=== PATIENT | female | born 1955 | race Caucasian/White ===

== ENCOUNTER → 2018-10-08 11:01 | Outpatient (CLI) | payer OTHER, SELFPAY ==
--- NOTE | 2018-10-08 11:11 | XR_ITS ---
EXAM: XR lumbar spine min 4V HISTORY: ITS.REASON: Low back pain ORDERING PHYSICIAN: ERIC Wise PATIENT AGE: 62 years COMPARISON: 06/27/2016 FINDINGS: Normal alignment. No fracture or dislocation. No lytic or blastic change. There is degenerative disc disease at L5-S1. Facet arthritic changes are also noted at L4-5 and L5-S1. Incidental vascular calcifications. SI joints are unremarkable. IMPRESSION: No significant change degenerative disc disease L5-S1 with facet arthritic change L4-L5 and L5-S1
== END ==
PROVIDERS: PCP Emergency Medicine; Visit Provider Physician Assistant
DX: M54.5 Low back pain (principal)
CPT/HCPCS: 72110

== ENCOUNTER 2020-01-20 09:08 | Inpatient (IN) | payer MEDICARE, MEDICAID, SELFPAY ==
[2020-01-20] VITALS (24 sets, daily range): BP systolic 129–187; BP diastolic 71–110; PULSE 60–88; RESP 13–18; TEMP 36.7–37.1; O2SAT 94–100; BMI 26.6; BMI 23.3
--- NOTE | 2020-01-20 | IR_ITS ---
APPROVED REPORT Patient Location: Inpatient Contact Center Rep: JUANA Mckinley RT (R) PROCEDURES Left heart catheterization Left ventriculogram Selective coronary angiogram Drug-eluting stent deployment to the mid circumflex artery INDICATION Acute non-ST elevation myocardial infarction, Coronary disease Informed consent was obtained prior to the procedure. COMPLICATIONS NONE Estimated Blood Loss: LESS THAN 10 ML TECHNIQUE One percent lidocaine used to anesthetize the right anterior aspect of the wrist. The right radial artery was accessed via the Seldinger technique. A 6 Vietnamese sheath was placed in the right radial artery. 2.5 mg of verapamil, 800 mcg of nitroglycerin, 1mg Lidocaine and 5000 U Heparin were given through the arterial sheath. The trap catheter was also used to perform left heart catheterization, left ventriculogram and selective coronary angiogram. At the end of the diagnostic procedure therapeutic heparin was administered and and I Leora left guide catheter was placed in the left main artery. A Choice PT extra-support wire was used to traverse the critical stenosis in the circumflex artery. A 2.75 x 18 mm resolute love stent was deployed at 15 eitan reducing the critical stenosis to 0%. JUAN DIEGO-3 flow was present before and after the procedure. At the end of the procedure the apparatus was removed the sheath was removed good hemostasis was achieved using TR banding patient was transferred to the postop holding area stable condition ANGIOGRAPHIC RESULTS The left main artery Normal The left anterior descending artery Has proximal and mid vessel 30% stenoses. A large first diagonal artery has an ostial proximal 80 to 90% stenosis The circumflex artery Is a nondominant yet still large vessel which has ostial and proximal 10% stenoses with a 50% and focal greater than 90% stenosis in a large second obtuse marginal artery The right coronary artery Dominant with mild luminal irregularities The BOWMAN ventriculogram reveals Normal 65% The left ventricular end-diastolic pressure 10 mmHg IMPRESSION Critical disease in a large second obtuse marginal artery Successful stenting of a critically diseased large second obtuse marginal artery reducing the stenosis to 0% with one drug-eluting stent Persistent severe stenosis in a large first diagonal artery Normal ejection fraction Normal left ventricular end-diastolic pressure PLAN 1. Brilinta 90 twice daily plus aspirin 81 mg daily for 1 year 2. LDL less than 55 3. Avoidance of tobacco products 4. Cardiac rehabilitation 5. Risk factor modification Electronically signed by : Nirav May, 01/20/2020 13:49:24
--- NOTE | 2020-01-20 09:10 | HMH.EDGENADL ---
ED Disposition Clinical Impression: Chest pain Qualifiers: Chest pain type: unspecified Qualified Code(s): R07.9 - Chest pain, unspecified Disposition: Admitted As Inpatient Condition on Discharge: Good Prescriptions: predniSONE [Prednisone 5mg Tab Dose-Pack] 5 mg PO UD DOSE PK 5 Days #1 pack Transmission Status: Received by [facility] Referrals: PCP,No [Non-Staff] - Time of Disposition: 10:24 - Critical Care Critical Care Time: No Attestation: On , the high probability of a clinically significant, sudden or life threatening deterioration of the following system(s) required my full and direct attention, intervention and personal management. The time I documented below is in addition to time spent performing reported procedures but includes the following listed in this critical care notation. Medical Decision Making - Medical Records Medical records reviewed: Yes: I reviewed the patient's medical records. MR Comment: 64-year-old female presents the emergency department with chest tightness over the last 5 days as well as an increased productive cough during this time. She denies any shortness of breath or pain in her back or chest. ACS is considered, COPD exacerbation also considered as well as COVID, or other viral etiology. PE not clinically concerning at this time. Will get EKG, troponin, labs, chest x-ray and reassess. Her initial blood pressure elevated to systolic 180 and diastolic around 110, but this decreased, though hypertensive urgency also considered. Patient remained stable. On reassessment, she continues to do well. Is not having pain at this time. Troponin is elevated at 0.2, EKG does not show any ST segment changes or hyperacute T waves. She has normal rhythm and rate. Given her increased troponin and intermittent chest tightness, spoke with the admitting physician and she will be admitted for further cardiac work-up. - Braxton Inquiry Pt receiving controlled substance: No Vital Signs: 01/20/20 09:08 Temperature 98.6 F Temperature Source Oral Pulse Rate [Left Radial] 88 Respiratory Rate 14 Blood Pressure [Right Arm] 187/105 H Blood Pressure Mean [Right Arm] 132 Blood Pressure Source [Right Arm] Automatic Cuff Blood Pressure Position [Right Arm] Sitting 02 Sat by Pulse Oximetry 99 Oxygen Delivery Method Room Air - Lab Data Lab Results 01/20/20 09:13: WBC 7.6, RBC 4.02 L, Hgb 12.7, Hct 39.7, MCV 98.7, MCH 31.6 H, MCHC 32.0, RDW 14.1, Plt Count 416, MPV 8.1, Neut % (Auto) 49.5, Lymph % (Auto) 40.6, [place] % (Auto) 7.0, Eos % (Auto) 2.5, Baso % (Auto) 0.5, Neut # (Auto) 3.8, Lymph # (Auto) 3.1, [place] # (Auto) 0.5, Eos # (Auto) 0.2, Baso # (Auto) 0.0 01/20/20 09:13: Sodium 139, Potassium 3.8, Chloride 103, Carbon Dioxide 28, Anion Gap 11.8, BUN 7, Creatinine 0.70, Estimated Creat Clear 66, Estimated GFR 84, Est GFR ( Amer) 102, Glucose 157 H, Calcium 9.7, Troponin I 0.20 H Result diagrams: 01/20/20 09:13 01/20/20 09:13 Orders (Tests/Meds): ED MEDICATIONS Discontinued Medications Generic Name Dose Route Start Last Admin Trade Name Freq PRN Reason Stop Dose Admin Albuterol/Ipratropium 3 ml 01/20/20 09:18 Duoneb 3ml Neb IH 01/20/20 09:19 ONCE ONE Aspirin 325 mg 01/20/20 10:04 Aspirin 325mg Tablet PO 01/20/20 10:05 ONCE ONE ORDERS Category Date Time Status XR chest 2V Stat Exams 01/20/20 09:16 Ordered Troponin I Stat Lab 01/20/20 09:13 Ordered General Adult HPI - General Stated complaint: chest pain Time Seen by Provider: 01/20/20 09:10 - History of Present Illness HPI narrative: 64-year-old female with a history of COPD presents emergency department with productive cough and chest tightness. She states that she has been coughing up more green-yellow sputum over the last 5 to 7 days and during this time is also felt some tightness in her chest. She denies chest pain, states her cough is been worse recently.
--- NOTE | 2020-01-20 09:16 | XR_ITS ---
PROCEDURE: XR CHEST 2V CLINICAL HISTORY: chest pain Shortness of breath, smoker COMPARISON: CR CXR CHEST(2 VIEWS-NOT PORTABLE) from 05/13/2014 CR CXR CHEST(2 VIEWS-NOT PORTABLE) from 08/30/2014 FINDINGS: The cardiomediastinal silhouette and pulmonary vascularity are within normal limits. The lungs are clear without infiltrates, suspicious nodules, or pleural effusions. Mild mid to upper thoracic kyphosis IMPRESSION: No acute findings. Dictated by: Yves Pelaez MD 01/20/2020 11:22 Yves Pelaez MD in [place] 01/20/2020 11:22
--- NOTE | 2020-01-20 09:16 | ECG_ITS ---
APPROVED REPORT Exam: Resting ECG HR:90 bpm ECG Measurements Heart Rate 90 AXES DC 134 P 82 QRSd 78 QRS 28 QT 404 T 98 QTc 494 <Conclusion> Normal sinus rhythm Left atrial abnormality Late r wave progression Abnormal ECG Electronically signed by : Elmer Witt, 01/22/2020 07:31:04
[2020-01-20 09:25] LABS: Basophils % 0.5 % (0.1-2.0); Eosinophils # 0.2 K/mm3 (0.0-0.4); Eosinophils % 2.5 % (0.1-12.0); Hematocrit 39.7 % (37.0-47.0); Hemoglobin 12.7 g/dL (12.2-16.2); Lymphocytes # 3.1 K/mm3 (0.7-4.5); Lymphocytes % 40.6 % (10-50); Mean Corpuscular Hemoglobin 31.6 pg (27.0-31.2); Mean Corpuscular Volume 98.7 fl (81-99); Mean Platelet Volume 8.1 fl (7.4-10.4); Monocytes # 0.5 K/mm3 (0.1-1.0); Neutrophils # 3.8 K/mm3 (1.8-7.8); Neutrophils % 49.5 % (37.0-80.0); Platelet Count 416 K/mm3 (142-424); Red Blood Count 4.02 M/mm3 (4.20-5.40); Red Cell Distribution Width 14.1 % (11.5-17.5); White Blood Count 7.6 K/mm3 (4.8-10.8)
[2020-01-20 09:27] LABS: Chloride 103 mmol/L (98-107); Potassium 3.8 mmoL/L (3.5-5.1); Sodium 139 mmol/L (136-145)
[2020-01-20 09:30] LABS: Anion Gap 11.8 mEq/L (5-15); Blood Urea Nitrogen 7 mg/dl (7-17); Calcium 9.7 mg/dl (8.4-10.2); Carbon Dioxide 28 mmol/L (22.0-30.0); Creatinine Clearance Estimated 66 mL/min (50-200); Estimated Glomerular Filt Rate 84 ml/min (>60); GFR (African American) 102 ML/MIN (>60); Glucose 157 mg/dl (74-100)
--- NOTE | 2020-01-20 10:11 | PC.NURSE ---
talking to about admission for pt
--- NOTE | 2020-01-20 10:11 | PC.NURSE ---
Pt to rad
--- NOTE | 2020-01-20 10:20 | CA_ITS ---
APPROVED REPORT EXAM: Comprehensive 2D, Doppler, and color-flow Echocardiogram Machine Stapler: Griselda Cummings, RT(R) Ht: 5 ft 6 in Wt: 165lbs BSA: 1.84 BP: 187/105 mmHg Indications: CP, COPD, smoker, chest tightness, CAD stent today 2D Dimensions LVOT 1.93 cm (M/F) 1.5-2.5 M-Mode Dimensions RVDd 2.73 cm (0.9-2.6) LVDd 4.96 cm (3.5-5.7) LVDs 4.02 cm (3.5-5.7) IVSd 1.14 cm (0.6-1.1) PWd 0.87 cm (0.6-1.1) EF (Teich) 39.00% FS 19.00% EDV (Teich) 116.10 mL ESV (Teich) 70.80 mL LV Diastology E/A Ratio 0.42 Mitral Valve MV A Velocity 97.00 (40-130 cm/s) Left Ventricle Left atrium is mildly enlarged, left ventricle is normal size, mild concentric left ventricular hypertrophy, visually estimated ejection fraction 55% with no regional wall motion abnormality, endocardial surfaces are poorly visualized, grade 1 diastolic dysfunction seen without tissue Doppler evidence of raise left atrial pressure. Right Ventricle Right atrium is mildly enlarged, right ventricle is mildly dilated with normal contractility. Aortic Valve Aortic valve is thickened and calcified without aortic stenosis, there is mild aortic insufficiency. Mitral Valve Mitral valve leaflets are minimally thickened, there is no mitral stenosis, there is mild mitral regurgitation. Tricuspid Valve Tricuspid valve is grossly normal, there is mild tricuspid regurgitation, tricuspid regurgitation jet velocity is inadequate for calculation of the right ventricular systolic pressure. Pulmonic Valve Pulmonic valve is poorly visualized. Great Vessels Aortic root is normal size. Pericardium No significant pericardial effusion noted. Conclusion 1. Mild biatrial enlargement, normal left ventricular size, mild concentric left ventricular hypertrophy, visually estimated ejection fraction 55% with no regional wall motion abnormality, grade 1 diastolic dysfunction seen without tissue Doppler evidence of raise left atrial pressure, endocardial surfaces are poorly visualized. 2. Mildly enlarged right ventricle with normal contractility. 3. Mild aortic, mitral and tricuspid regurgitation. 4. No significant pericardial effusion noted. Electronically signed by : Fer Arnold, 01/21/2020 13:14:39
--- NOTE | 2020-01-20 10:33 | PC.NURSE ---
Blossom Smith in aware of admission. States she will contact HS for bed admission
--- NOTE | 2020-01-20 10:36 | PC.NURSE ---
Dr Silva speaking with Alice Caraballo APRN
--- NOTE | 2020-01-20 10:52 | PC.NURSE ---
Alice Caraballo APRN at bedside
--- NOTE | 2020-01-20 10:59 | HMH.CNCARD ---
History of Present Illness Consult date: 01/20/20 Requesting physician: Edwardo Silva Consult reason: chest pain Chief complaint: chest pain History of present illness: This is a 64-year-old white female who presented to the emergency department with chest tightness over the last 4 to 5 days. The patient states that the chest tightness has progressively worsened and because it got worse this morning than it had been on any other previous days she decided to come into the emergency department. It radiates to the right arm and causes heaviness. It is associated with nausea and diaphoresis as well as feeling clammy. She denies any shortness of breath or radiation to her back. The patient states that she has a history of COPD and thought that she was just having an exacerbation of her COPD and bronchitis. The patient denies any history of TN or coronary artery disease. She denies hypertension, hyperlipidemia or diabetes. She states that she does have a sister who has multiple cardiac stents in place. She does smoke at least 1 pack/day. Her initial troponin is positive at 0.2 with an abnormal EKG but it does not show any acute ST changes. She denies any fever, chills, vomiting, diarrhea, PND or orthopnea. As mentioned above the patient does deny hypertension but her blood pressure is significantly elevated on admission. [facility] History I have reviewed the patient's past medical history: Yes Medical History: Reports:: Anxiety, Depression Denies:: Diabetes Mellitus Type 1, Diabetes Mellitus Type 2, Hyperlipidemia, Hypertension *Have you ever received a pneumonia vaccine?: No *Have you received a flu vaccine this season?: No Other Medical History: Reports: Arthritis Other Surgeries: Yes: Cholecystectomy, Colonoscopy Amputation: No Fractures: No - *Social History Smoking Status: Current every day smoker Tobacco Type: cigarettes # Packs/Day (cigarettes): 1 Alcohol Intake: never Substance Use Type: denies use *Occupational Status:: retired *Travel in the last 8 weeks: None - Psychiatric History Pschychiatric History:: Reports:: Anxiety, Depression Family Hx:: Cancer Meds Home Medications Medication Instructions Recorded Confirmed Type albuterol sulfate 90 mcg/actuation 2 puff INHALATION Q6H #6.7 g 11/17/19 11/17/19 Rx aerosol inhaler gabapentin 800 mg tablet 800 mg PO QID #120 tab 11/17/19 Rx nabumetone 1,000 mg tablet 1,000 mg PO DAILY #30 tab 11/17/19 11/17/19 Rx omeprazole 40 mg capsule,delayed See Rx Instructions .ROUTE 12/14/19 Rx release .COMPLEX #90 cap prednisone 20 mg tablet 20 mg PO BID #10 tab 12/23/19 Rx predniSONE [Prednisone 5mg Tab 5 mg PO UD DOSE PK 5 Days #1 pack 01/20/20 Rx Dose-Pack] Allergies Allergy/AdvReac Type Severity Reaction Status Date / Time cephalexin [From KEFLEX] Allergy Intermediate Verified 11/17/19 11:01 Penicillins Allergy Intermediate I-HIVES Verified 11/17/19 11:01 Exam Vital signs and Labs for Last 24 Hours: Temp Pulse Resp BP Pulse Ox 98.6 F 82 14 185/110 H 98 01/20/20 09:08 01/20/20 10:34 01/20/20 09:08 01/20/20 10:34 01/20/20 10:34 Laboratory Results - last 24 hr 01/20/20 09:13: WBC 7.6, RBC 4.02 L, Hgb 12.7, Hct 39.7, MCV 98.7, MCH 31.6 H, MCHC 32.0, RDW 14.1, Plt Count 416, MPV 8.1, Neut % (Auto) 49.5, Lymph % (Auto) 40.6, [place] % (Auto) 7.0, Eos % (Auto) 2.5, Baso % (Auto) 0.5, Neut # (Auto) 3.8, Lymph # (Auto) 3.1, [place] # (Auto) 0.5, Eos # (Auto) 0.2, Baso # (Auto) 0.0 01/20/20 09:13: Sodium 139, Potassium 3.8, Chloride 103, Carbon Dioxide 28, Anion Gap 11.8, BUN 7, Creatinine 0.70, Estimated Creat Clear 66, Estimated GFR 84, Est GFR ( Amer) 102, Glucose 157 H, Calcium 9.7, Troponin I 0.20 H I & O for Last 24 hours: Intake & Output 01/17/20 01/18/20 01/19/20 01/20/20 23:59 23:59 23:59 23:59 Weight 165 lb Narrative: EKG is sinus rhythm with an old septal TN pattern and a rate of 90. - Constitutional no acute distress, av
--- NOTE | 2020-01-20 11:14 | PC.NURSE ---
Report called to Shilpi
--- NOTE | 2020-01-20 11:39 | PC.NURSE ---
Order for IgG/IgM was ordered in ER, although when the orders got transferred to the floor it cancelled out the current order for the lab test. After clarifying with lab that the order was cancelled on their end, new order was ordered, pt already taken to the floor at this time. Will notify accepting nurse of this information as well.
[2020-01-20 12:12] LABS: Coronavirus 19 IgG Antibody Negative (Negative); Coronavirus 19 IgM Antibody Negative (Negative)
[2020-01-20 13:31] LABS: Troponin I 0.19 ng/ml (0.00-0.034)
[2020-01-20 14:59] LABS: CATHL Activated Clotting Time 220 SEC (74-125)
--- NOTE | 2020-01-20 15:22 | PC.NURSE ---
password for pt is 1955
--- NOTE | 2020-01-20 18:26 | PC.NURSE ---
pt has done well since heart cath. bp has remained the same for the most part, is decreasing though. when RN took tracelet off a hematoma was noted at site, manual pressure held by myself and Beth Brito RN for approx. 20 minutes. currently no hematoma noted, education given to patient. vss. will cont. to monitor.
--- NOTE | 2020-01-20 19:13 | PC.NURSE ---
report given to earl
[2020-01-21] VITALS: BP 160/86; PULSE 78; PULSE 80; RESP 18; TEMP 36.5; O2SAT 95
[2020-01-21 02:00] VITALS: BP 150/85; PULSE 74; RESP 16; O2SAT 95
[2020-01-21 04:00] VITALS: BP 152/85; PULSE 62; PULSE 70; RESP 16; TEMP 36.4; O2SAT 94
--- NOTE | 2020-01-21 04:26 | PC.NURSE ---
Pt is A&Ox4 and has ambulated OOB 3x this shift with staff SBA and tolerated well. Pt has remained in NSR t/o shift. Pt denies any chest pain, SOB, or N/V/D. R wrist is very tender to touch, [employer] is WNL, peripheral pulses 2+, and pt denies any numbness or tingling to hand/fingers. No further reoccurrence of hematoma present thus far. Lungs CTA, SaO2 94-97% on room air. ABD is soft, non-tender, with active BS. Last BM was 01/19/20. Pt has refused TEDS. VSS, call light within reach, and will continue to monitor.
[2020-01-21 05:00] VITALS: BMI 23.3
[2020-01-21 06:00] LABS: Basophils % 0.4 % (0.1-2.0); Eosinophils # 0.1 K/mm3 (0.0-0.4); Eosinophils % 1.8 % (0.1-12.0); Hematocrit 38.2 % (37.0-47.0); Hemoglobin 13.2 g/dL (12.2-16.2); Lymphocytes # 2.2 K/mm3 (0.7-4.5); Lymphocytes % 27.5 % (10-50); Mean Corpuscular HGB Conc 34.6 g/dL (31.8-35.4); Mean Corpuscular Hemoglobin 32.9 pg (27.0-31.2); Mean Corpuscular Volume 95.1 fl (81-99); Mean Platelet Volume 8.2 fl (7.4-10.4); Monocytes # 0.6 K/mm3 (0.1-1.0); Neutrophils % 63.4 % (37.0-80.0); Platelet Count 430 K/mm3 (142-424); Red Blood Count 4.02 M/mm3 (4.20-5.40); White Blood Count 7.9 K/mm3 (4.8-10.8)
[2020-01-21 06:18] LABS: Alanine Aminotransferase 13 U/L (12-78); Albumin Level 3.9 g/dl (3.5-5.0); Alkaline Phosphatase 114 U/L (38-126); Anion Gap 13.8 mEq/L (5-15); Aspartate Amino Transferase 34 U/L (14-36); Bilirubin,Direct 0.1 mg/dl (0.0-0.4); Bilirubin,Indirect 0.5 mg/dL (0.0-0.9); Bilirubin,Total 0.6 mg/dl (0.2-1.3); Bilirubin,Unconjugated 0.5 mg/dL (0.0-1.1); Blood Urea Nitrogen 7 mg/dl (7-17); Calcium 9.6 mg/dl (8.4-10.2); Carbon Dioxide 28 mmol/L (22.0-30.0); Chloride 104 mmol/L (98-107); Cholesterol 295 mg/dl (140-200); Creatinine Clearance Estimated 58 mL/min (50-200); Estimated Glomerular Filt Rate 84 ml/min (>60); GFR (African American) 102 ML/MIN (>60); Glucose 130 mg/dl (74-100); HDL Cholesterol 42 mg/dl (40-60); Potassium 3.8 mmoL/L (3.5-5.1); Sodium 142 mmol/L (136-145); Total Protein,Serum 6.9 g/dl (6.3-8.2); Triglycerides 186 mg/dl (30-150); VLDL Cholesterol 37 mg/dL (0-40)
[2020-01-21 06:28] LABS: Direct LDL Cholesterol 217.91 mg/dL (100-129)
--- NOTE | 2020-01-21 07:25 | HMH.PHAVTE ---
[facility] [place] Pharmacy VTE Monitoring - Patient Demographics Admission date: 01/20/20 Report Date: 01/21/20 Allergies/Adverse Reactions: Patient Allergies cephalexin [From KEFLEX] Allergy (Intermediate, Verified 11/17/19 11:01) Penicillins Allergy (Intermediate, Verified 11/17/19 11:01) I-HIVES Height: 1.68 m Weight: 65.828 kg Patient Problems: Current Active Problems Chest pain (Acute) Non-ST elevation myocardial infarction (NSTEMI) (Acute) Angina pectoris (Acute) Elevated blood pressure reading (Acute) Tobacco user (Chronic) Family history of ischemic heart disease (Chronic) - VTE Risk Labs: VTE Related Lab Results Hgb 13.2 g/dL (12.2-16.2) 01/21/20 05:30 Hct 38.2 % (37.0-47.0) 01/21/20 05:30 Plt Count 430 K/mm3 (142-424) H 01/21/20 05:30 BUN 7 mg/dl (7-17) 01/21/20 05:30 Creatinine 0.70 mg/dl (0.52-1.04) 01/21/20 05:30 Estimated Creat Clear 58 mL/min (50-200) 01/21/20 05:30 Was VTE Risk Assessment Performed: No VTE Score: 4 VTE Risk Level: Low Risk Clinical Trial Participant: No - Prophylaxis VTE Prophylaxis Ordered?: Yes Types of VTE Prophylaxis: TEDS Knee High
[2020-01-21 07:37] VITALS: TEMP 37.1
--- NOTE | 2020-01-21 07:54 | HMH.PHAINT ---
HOME MEDICATION RECONCILIATION COMPLETED USING LIST FROM DR [facility].
[2020-01-21 08:00] VITALS: BP 171/91; PULSE 70; RESP 16; O2SAT 97
--- NOTE | 2020-01-21 08:11 | HMH.HP ---
*Admission Date: 01/20/20 *Chief complaint: chest pain *History of present illness: 64-year-old female presents the emergency department with chest tightness over the last 5 days as well as an increased productive cough during this time. She denies any shortness of breath or pain in her back or chest. ACS is considered, COPD exacerbation also considered as well as COVID, or other viral etiology. PE not clinically concerning at this time. Will get EKG, troponin, labs, chest x-ray and reassess. Her initial blood pressure elevated to systolic 180 and diastolic around 110, but this decreased, though hypertensive urgency also considered. Patient remained stable. On reassessment, she continues to do well. Is not having pain at this time. Troponin is elevated at 0.2, EKG does not show any ST segment changes or hyperacute T waves. She has normal rhythm and rate. Given her increased troponin and intermittent chest tightness, spoke with the admitting physician and she will be admitted for further cardiac work-up. [facility] History Medical History: Reports:: Anxiety, Depression, Hyperlipidemia Denies:: Cancer, Diabetes Mellitus Type 1, Diabetes Mellitus Type 2, Hypertension, MRSA *Have you ever received a pneumonia vaccine?: No *Have you received a flu vaccine this season?: No Other Medical History: Reports: Arthritis Other Surgeries: Yes: Cholecystectomy, Colonoscopy Amputation: No Fractures: No - *Social History Smoking Status: Current every day smoker Tobacco Type: cigarettes # Packs/Day (cigarettes): 1 Alcohol Intake: never Substance Use Type: denies use *Occupational Status:: retired Household Members: family *Travel in the last 8 weeks: None - Psychiatric History Pschychiatric History:: Reports:: Anxiety, Depression Family Hx:: Cancer, Diabetes, Stroke Meds Home Medications Medication Instructions Recorded Confirmed Type Albuterol Sulfate [Proventil Hfa] 2 puff INHALATION Q6H 01/20/20 01/20/20 History Gabapentin 800 mg PO QID 01/20/20 01/20/20 History predniSONE [Prednisone 5mg Tab 5 mg PO UD DOSE PK 5 Days #1 pack 01/20/20 Rx Dose-Pack] Aspirin [Aspirin 81mg EC Tab] 81 mg PO DAILY 30 Days #30 01/21/20 Rx tablet. Atorvastatin Calcium [Lipitor 40mg 40 mg PO HS 30 Days #30 tab 01/21/20 Rx Tablet] Metoprolol Succinate [Toprol XL 25 mg PO DAILY 30 Days #30 01/21/20 Rx 25mg tablet] tab.er.24h Pantoprazole Sodium [Protonix 40mg 40 mg PO HS 30 Days #30 tablet.dr 01/21/20 Rx tablet] Ticagrelor [Brilinta 90mg 90 mg PO BID tab 01/21/20 Rx Tablet] lisinopriL [Zestril 10mg Tab] 10 mg PO DAILY 30 Days #30 tab 01/21/20 Rx Allergies Allergy/AdvReac Type Severity Reaction Status Date / Time cephalexin [From KEFLEX] Allergy Intermediate Verified 11/17/19 11:01 Penicillins Allergy Intermediate I-HIVES Verified 11/17/19 11:01 Exam Vital signs and Labs for Last 24 Hours: Temp Pulse Resp BP Pulse Ox 98.7 F 62 16 152/85 H 94 L 01/21/20 07:37 01/21/20 04:00 01/21/20 04:00 01/21/20 04:00 01/21/20 04:00 Laboratory Results - last 24 hr 01/20/20 09:13: WBC 7.6, RBC 4.02 L, Hgb 12.7, Hct 39.7, MCV 98.7, MCH 31.6 H, MCHC 32.0, RDW 14.1, Plt Count 416, MPV 8.1, Neut % (Auto) 49.5, Lymph % (Auto) 40.6, [place] % (Auto) 7.0, Eos % (Auto) 2.5, Baso % (Auto) 0.5, Neut # (Auto) 3.8, Lymph # (Auto) 3.1, [place] # (Auto) 0.5, Eos # (Auto) 0.2, Baso # (Auto) 0.0 01/20/20 09:13: Sodium 139, Potassium 3.8, Chloride 103, Carbon Dioxide 28, Anion Gap 11.8, BUN 7, Creatinine 0.70, Estimated Creat Clear 66, Estimated GFR 84, Est GFR ( Amer) 102, Glucose 157 H, Calcium 9.7, Troponin I 0.20 H 01/20/20 09:13: SARS-CoV-2 IgG Ab (Rapid) Negative, SARS-CoV-2 IgM Ab (Rapid) Negative 01/20/20 12:00: Troponin I 0.19 H 01/20/20 13:39: Activated Clotting Time 220 H* 01/21/20 05:30: WBC 7.9, RBC 4.02 L, Hgb 13.2, Hct 38.2, MCV 95.1, MCH 32.9 H, MCHC 34.6, RDW 14.0, Plt Count 430 H, MPV 8.2, Neut % (Auto
--- NOTE | 2020-01-21 08:15 | HMH.PNCARD ---
Subjective Date: 01/21/20 Time: 08:15 Principal diagnosis: NSTEMI Interval history: 64-year-old white female in bed in no acute distress. Some discomfort at the right wrist cath site but she is able to move her fingers without difficulty and denies any numbness or tingling into the fingers. Patient is anxious to go home. She denies any of her angina or NJ symptoms since stenting yesterday. We did discuss tobacco cessation and she states she is not wanting any cigarettes. Exam Vital signs and Labs for Last 24 Hours: Temp Pulse Resp BP Pulse Ox 98.7 F 62 16 152/85 H 94 L 01/21/20 07:37 01/21/20 04:00 01/21/20 04:00 01/21/20 04:00 01/21/20 04:00 Laboratory Results - last 24 hr 01/20/20 09:13: WBC 7.6, RBC 4.02 L, Hgb 12.7, Hct 39.7, MCV 98.7, MCH 31.6 H, MCHC 32.0, RDW 14.1, Plt Count 416, MPV 8.1, Neut % (Auto) 49.5, Lymph % (Auto) 40.6, Gray % (Auto) 7.0, Eos % (Auto) 2.5, Baso % (Auto) 0.5, Neut # (Auto) 3.8, Lymph # (Auto) 3.1, Gray # (Auto) 0.5, Eos # (Auto) 0.2, Baso # (Auto) 0.0 01/20/20 09:13: Sodium 139, Potassium 3.8, Chloride 103, Carbon Dioxide 28, Anion Gap 11.8, BUN 7, Creatinine 0.70, Estimated Creat Clear 66, Estimated GFR 84, Est GFR ( Amer) 102, Glucose 157 H, Calcium 9.7, Troponin I 0.20 H 01/20/20 09:13: SARS-CoV-2 IgG Ab (Rapid) Negative, SARS-CoV-2 IgM Ab (Rapid) Negative 01/20/20 12:00: Troponin I 0.19 H 01/20/20 13:39: Activated Clotting Time 220 H* 01/21/20 05:30: WBC 7.9, RBC 4.02 L, Hgb 13.2, Hct 38.2, MCV 95.1, MCH 32.9 H, MCHC 34.6, RDW 14.0, Plt Count 430 H, MPV 8.2, Neut % (Auto) 63.4, Lymph % (Auto) 27.5, Gray % (Auto) 7.0, Eos % (Auto) 1.8, Baso % (Auto) 0.4, Neut # (Auto) 5.0, Lymph # (Auto) 2.2, Gray # (Auto) 0.6, Eos # (Auto) 0.1, Baso # (Auto) 0.0 01/21/20 05:30: Sodium 142, Potassium 3.8, Chloride 104, Carbon Dioxide 28, Anion Gap 13.8, BUN 7, Creatinine 0.70, Estimated Creat Clear 58, Estimated GFR 84, Est GFR ( Amer) 102, Glucose 130 H, Calcium 9.6, Total Bilirubin 0.6, Direct Bilirubin 0.1, Conjugated Bilirubin 0.0, Indirect Bilirubin 0.5, Unconjugated Bilirubin 0.5, AST 34, ALT 13, Alkaline Phosphatase 114, Total Protein 6.9, Albumin 3.9, Triglycerides 186 H, Cholesterol 295 H, LDL Cholesterol Direct 217.91 H, VLDL Cholesterol 37, HDL Cholesterol 42, Cholesterol/HDL Ratio 7.0 H I & O for Last 24 hours: Intake & Output 01/18/20 01/19/20 01/20/20 01/21/20 11:59 11:59 11:59 11:59 Intake Total 1850 / 1850 Output Total 450 / 450 Balance 1400 / 1400 Weight 144 lb 9 oz 145 lb 2 oz - *Routine HEENT Exam Head: Present: normocephalic Eye: Present: EOMI, PERRL ENT: Present: mucous membranes moist - *Routine Respiratory Exam Present: CTA bilaterally - *Routine Cardiovascular Exam Present: RRR - *Routine Abdominal Exam Present: soft, normoactive bowel sounds. Absent: tenderness - *Routine Extremities Exam Absent: cyanosis, clubbing, edema - *Routine Neurological Exam Present: alert, oriented X3 Progress Note: A&P (1) Non-ST elevation myocardial infarction (NSTEMI) Status: Acute Current Visit: Yes (2) Angina pectoris Status: Acute Current Visit: Yes (3) Elevated blood pressure reading Status: Acute Current Visit: Yes (4) Tobacco user Status: Chronic Current Visit: Yes (5) Family history of ischemic heart disease Status: Chronic Current Visit: Yes (6) COPD (chronic obstructive pulmonary disease) Status: Chronic Current Visit: No Assessment and Plan for All Diagnoses:: 1. Non-ST elevation [place], status post drug-eluting stent placement to a large second obtuse marginal. Patient is on aspirin and Brilinta. There is persistent disease in a first diagonal artery that will be addressed in the near future. 2. Hypertension, patient is tolerating lisinopril and metoprolol. 3. Hyperlipidemia, statin therapy has been started 4. Chronic discomfort, on gabapentin therapy 5. History of GERD, patient is on pantopraz
--- NOTE | 2020-01-21 09:32 | HMH.DCSUM ---
General - General Admission date:: 01/20/20 Discharge date: 01/21/20 HPI HPI: 64-year-old female who presented to the emergency department with chest tightness over the last 4 to 5 days. The patient states that the chest tightness has progressively worsened and because it got worse this morning than it had been on any other previous days she decided to come into the emergency department. It radiates to the right arm and causes heaviness. It is associated with nausea and diaphoresis as well as feeling clammy. She denies any shortness of breath or radiation to her back. The patient states that she has a history of COPD and thought that she was just having an exacerbation of her COPD and bronchitis. The patient denies any history of RI or coronary artery disease. She denies hypertension, hyperlipidemia or diabetes. She states that she does have a sister who has multiple cardiac stents in place. She does smoke at least 1 pack/day. Her initial troponin is positive at 0.2 with an abnormal EKG but it does not show any acute ST changes. She denies any fever, chills, vomiting, diarrhea, PND or orthopnea. As mentioned above the patient does deny hypertension but her blood pressure is significantly elevated on admission. per cardiology Hospital Course Hospital Course: Laboratory Tests 01/20/20 01/20/20 01/20/20 09:13 09:13 09:13 WBC 7.6 RBC 4.02 L Hgb 12.7 Hct 39.7 MCV 98.7 MCH 31.6 H MCHC 32.0 RDW 14.1 Plt Count 416 MPV 8.1 Neut % (Auto) 49.5 Lymph % (Auto) 40.6 [facility] % (Auto) 7.0 Eos % (Auto) 2.5 Baso % (Auto) 0.5 Neut # (Auto) 3.8 Lymph # (Auto) 3.1 [facility] # (Auto) 0.5 Eos # (Auto) 0.2 Baso # (Auto) 0.0 Activated Clotting Time Sodium 139 Potassium 3.8 Chloride 103 Carbon Dioxide 28 Anion Gap 11.8 BUN 7 Creatinine 0.70 Estimated Creat Clear 66 Estimated GFR 84 Est GFR ( Amer) 102 Glucose 157 H Calcium 9.7 Total Bilirubin Direct Bilirubin Conjugated Bilirubin Indirect Bilirubin Unconjugated Bilirubin AST ALT Alkaline Phosphatase Troponin I 0.20 H Total Protein Albumin Triglycerides Cholesterol LDL Cholesterol Direct VLDL Cholesterol HDL Cholesterol Cholesterol/HDL Ratio SARS-CoV-2 IgG Ab (Rapid) Negative SARS-CoV-2 IgM Ab (Rapid) Negative 01/20/20 01/20/20 01/21/20 12:00 13:39 05:30 WBC 7.9 RBC 4.02 L Hgb 13.2 Hct 38.2 MCV 95.1 MCH 32.9 H MCHC 34.6 RDW 14.0 Plt Count 430 H MPV 8.2 Neut % (Auto) 63.4 Lymph % (Auto) 27.5 [facility] % (Auto) 7.0 Eos % (Auto) 1.8 Baso % (Auto) 0.4 Neut # (Auto) 5.0 Lymph # (Auto) 2.2 [facility] # (Auto) 0.6 Eos # (Auto) 0.1 Baso # (Auto) 0.0 Activated Clotting Time 220 H* Sodium Potassium Chloride Carbon Dioxide Anion Gap BUN Creatinine Estimated Creat Clear Estimated GFR Est GFR ( Amer) Glucose Calcium Total Bilirubin Direct Bilirubin Conjugated Bilirubin Indirect Bilirubin Unconjugated Bilirubin AST ALT Alkaline Phosphatase Troponin I 0.19 H Total Protein Albumin Triglycerides Cholesterol LDL Cholesterol Direct VLDL Cholesterol HDL Cholesterol Cholesterol/HDL Ratio SARS-CoV-2 IgG Ab (Rapid) SARS-CoV-2 IgM Ab (Rapid) 01/21/20 05:30 WBC RBC Hgb Hct MCV MCH MCHC RDW Plt Count MPV Neut % (Auto) Lymph % (Auto) [facility] % (Auto) Eos % (Auto) Baso % (Auto) Neut # (Auto) Lymph # (Auto) [facility] # (Auto) Eos # (Auto) Baso # (Auto) Activated Clotting Time Sodium 142 Potassium 3.8 Chloride 104 Carbon Dioxide 28 Anion Gap 13.8 BUN 7 Creatinine 0.70 Estimated Creat Clear 58 Estimated GFR 84 Est GFR ( Amer) 102 Glucose 130 H Calcium 9.6 Total Bilirubin 0.6 Direct Bilirub
--- NOTE | 2020-01-21 10:32 | HMH.PHACLD ---
Sushma Anna Marie Zehradanae has received discharge medication counseling on the following medications: ASPIRIN 81MG LIPITOR 40MG METOPROLOL 25MG LISINOPRIL 10MG BRILINTA 90MG PROTONIX 40MG PREDNISONE DOSE PACK ALL NEW PRESCRIPTIONS WERE SENT TO [facility] WITH THE EXCEPTION OF BRILINTA WHICH WAS ALREADY FILLED BY [facility]. PATIENT IS TO STOP NABUMETONE AND OMEPRAZOLE. PATIENT VERBALIZED UNDERSTANDING AND HAD NO QUESTIONS AT THIS TIME. -BHARTI WAGNER, NEELD
== END 2020-01-21 10:41 | disposition home or self-care (01) | DRG 247 ==
LOC: ER 10:24 → 2ND 10:41
PROVIDERS: Internal Medicine; Nurse Practitioner Family; Admitting Provider Emergency Medicine; Emergency Provider Emergency Medicine; PCP Physician Assistant; Visit Provider Emergency Medicine
PROC: 027034Z Dilation of Coronary Artery, One Artery with Drug-eluting Intraluminal Device, Percutaneous Approach (ICD-10-PCS; principal; 2020-01-20 12:00)
DX: I21.4 Non-ST elevation (NSTEMI) myocardial infarction (principal); J44.9 Chronic obstructive pulmonary disease, unspecified; Z72.0 Tobacco use; I20.8 Other forms of angina pectoris; Z82.49 Family history of ischemic heart disease and other diseases of the circulatory system; Z79.52 Long term (current) use of systemic steroids; Z88.1 Allergy status to other antibiotic agents; Z88.0 Allergy status to penicillin; Z79.899 Other long term (current) drug therapy
CPT/HCPCS: 71046; 80048; 80061; 80076; 84484; 85025; 85347; 86328; 92941; 93005; 93306; 93458; 94761; 99152; 99284; C1725; C1769; C1876; C9606; J1644; Q9967

== ENCOUNTER 2020-01-25 14:37 | Observation (INO) | payer MEDICARE, MEDICAID, SELFPAY ==
[2020-01-25] VITALS (10 sets, daily range): BP systolic 142–196; BP diastolic 82–106; PULSE 70–109; RESP 17–20; TEMP 36.8–37.1; O2SAT 94–98; BMI 21.4; BMI 25.7; BMI 22.5
--- NOTE | 2020-01-25 14:28 | ECG_ITS ---
APPROVED REPORT Exam: Resting ECG HR:64 bpm ECG Measurements Heart Rate 64 AXES WI 140 P 68 QRSd 86 QRS 16 QT 428 T -56 QTc 441 <Conclusion> Normal sinus rhythm ST & T wave abnormality, consider inferior ischemia Abnormal ECG Electronically signed by : Elmer Witt, 01/25/2020 20:51:39
--- NOTE | 2020-01-25 14:44 | XR_ITS ---
PROCEDURE: XR CHEST PORTABLE CLINICAL HISTORY: chest pain COMPARISON: CR CXR CHEST(2 VIEWS-NOT PORTABLE) from 05/13/2014 CR CXR CHEST(2 VIEWS-NOT PORTABLE) from 08/30/2014 CR XR CHEST 2V from 01/20/2020 FINDINGS: Mild cardiomegaly without failure. The lungs are clear without infiltrates, suspicious nodules, or pleural effusions. No acute bony abnormalities. IMPRESSION: Mild cardiomegaly otherwise negative Dictated by: Yves Pelaez MD 01/25/2020 17:01 Yves Pelaez MD in [place] 01/25/2020 17:01
--- NOTE | 2020-01-25 14:54 | HMH.EDCP ---
ED Disposition Clinical Impression: Chest pain Qualifiers: Chest pain type: unspecified Qualified Code(s): R07.9 - Chest pain, unspecified Disposition: Still a Patient Condition on Discharge: Fair - Critical Care Critical Care Time: No Attestation: On 01/25/20, the high probability of a clinically significant, sudden or life threatening deterioration of the following system(s) required my full and direct attention, intervention and personal management. The time I documented below is in addition to time spent performing reported procedures but includes the following listed in this critical care notation. Medical Decision Making - Medical Records Medical records reviewed: Yes: I reviewed the patient's medical records. - [place] Inquiry Pt receiving controlled substance: No Vital Signs: 01/25/20 14:37 01/25/20 15:35 01/25/20 16:04 Temperature 98.2 F Temperature Source Oral Pulse Rate Pulse Rate [Right Radial] 87 74 77 Respiratory Rate 18 20 20 Blood Pressure Blood Pressure [Right Arm] 196/106 H 171/99 H 168/89 H Blood Pressure Mean [Right Arm] 136 123 115 Blood Pressure Source [Right Arm] Automatic Cuff Automatic Cuff Blood Pressure Position [Right Arm] Sitting Sitting Sitting 02 Sat by Pulse Oximetry 98 97 98 Oxygen Delivery Method Room Air Room Air Room Air 01/25/20 16:41 01/25/20 16:48 01/25/20 17:06 Temperature 98.7 F 98.2 F Temperature Source Oral Pulse Rate 73 Pulse Rate [Right Radial] 73 109 H Respiratory Rate 18 19 18 Blood Pressure 177/94 H Blood Pressure [Right Arm] 177/94 H 142/89 H Blood Pressure Mean [Right Arm] 121 106 Blood Pressure Source [Right Arm] Automatic Cuff Automatic Cuff Blood Pressure Position [Right Arm] Sitting Supine 02 Sat by Pulse Oximetry 97 94 L Oxygen Delivery Method Room Air Room Air - Lab Data Lab Results 01/25/20 15:00: WBC 11.4 H, RBC 4.12 L, Hgb 13.5, Hct 39.1, MCV 95.1, MCH 32.8 H, MCHC 34.5, RDW 14.4, Plt Count 477 H, MPV 8.0, Neut % (Auto) 73.1, Lymph % (Auto) 19.8, [place] % (Auto) 5.3, Eos % (Auto) 1.4, Baso % (Auto) 0.3, Neut # (Auto) 8.3 H, Lymph # (Auto) 2.3, [place] # (Auto) 0.6, Eos # (Auto) 0.2, Baso # (Auto) 0.0 01/25/20 15:00: Sodium 139, Potassium 3.2 L, Chloride 103, Carbon Dioxide 25, Anion Gap 14.2, BUN 9, Creatinine 0.60, Estimated Creat Clear 58, Estimated GFR 100, Est GFR ( Amer) 121, Glucose 172 H, Calcium 9.7, Troponin I 0.03 01/25/20 15:00: NT-Pro-B Natriuret Pep 314 H 01/25/20 15:00: SARS-CoV-2 IgG Ab (Rapid) Negative, SARS-CoV-2 IgM Ab (Rapid) Negative Result diagrams: 01/25/20 15:00 01/25/20 15:00 Orders (Tests/Meds): ED MEDICATIONS Generic Name Dose Route Start Last Admin Trade Name Freq PRN Reason Stop Dose Admin Acetaminophen 650 mg 01/25/20 16:48 Acetaminophen 325mg Tab PO 02/24/20 16:47 Q4HP PRN As Needed for Fever or Pain Albuterol Sulfate 2 puffs 01/25/20 18:00 Proventil-Hfa 90mcg/Puff Inhaler IH 02/24/20 17:59 Q6RT [facility] Aspirin 81 mg 01/26/20 09:00 Aspirin 81mg Enteric Coated Tablet PO 02/25/20 08:59 DAILY [facility] Atorvastatin Calcium 40 mg 01/25/20 21:00 Lipitor 40mg Tablet PO 02/24/20 20:59 HS [facility] Gabapentin 800 mg 01/25/20 17:00 01/25/20 18:16 Neurontin 400mg Capsule PO 01/25/20 21:01 Not Given QID BAILEE Lisinopril 10 mg 01/26/20 09:00 Zestril 10mg Tablet PO 02/25/20 08:59 DAILY [facility] Metoprolol Succinate 25 mg 01/26/20 09:00 Toprol Xl 25mg Tablet PO 02/25/20 08:59 DAILY [facility] Miscellaneous 1 unit 01/25/20 16:48 01/25/20 17:56 Aerochamber/Optihaler MC 01/25/20 16:49 Not Given ONCE ONE Nitroglycerin 0.4 mg 01/25/20 16:48 Nitrostat 0.4mg Sl Tablet SL 02/24/20 14:43 Q5MINP PRN Chest Pain Non-Formulary Medication 800 mg 01/26/20 09:00 Gabapentin PO 02/25/20 08:59 QID BAILEE Pantoprazole Sodium 40 mg 01/25/20 21:00 Protonix 40mg Tablet PO 02/24/20 20:59 HS BAILEE
[2020-01-25 15:09] LABS: Basophils % 0.3 % (0.1-2.0); Eosinophils # 0.2 K/mm3 (0.0-0.4); Eosinophils % 1.4 % (0.1-12.0); Hematocrit 39.1 % (37.0-47.0); Hemoglobin 13.5 g/dL (12.2-16.2); Lymphocytes # 2.3 K/mm3 (0.7-4.5); Lymphocytes % 19.8 % (10-50); Mean Corpuscular HGB Conc 34.5 g/dL (31.8-35.4); Mean Corpuscular Hemoglobin 32.8 pg (27.0-31.2); Mean Corpuscular Volume 95.1 fl (81-99); Monocytes # 0.6 K/mm3 (0.1-1.0); Monocytes % 5.3 % (1.7-9.3); Neutrophils # 8.3 K/mm3 (1.8-7.8); Neutrophils % 73.1 % (37.0-80.0); Platelet Count 477 K/mm3 (142-424); Red Blood Count 4.12 M/mm3 (4.20-5.40); Red Cell Distribution Width 14.4 % (11.5-17.5); White Blood Count 11.4 K/mm3 (4.8-10.8)
[2020-01-25 15:14] LABS: Chloride 103 mmol/L (98-107); Potassium 3.2 mmoL/L (3.5-5.1); Sodium 139 mmol/L (136-145)
[2020-01-25 15:17] LABS: Anion Gap 14.2 mEq/L (5-15); Blood Urea Nitrogen 9 mg/dl (7-17); Calcium 9.7 mg/dl (8.4-10.2); Carbon Dioxide 25 mmol/L (22.0-30.0); Creatinine Clearance Estimated 58 mL/min (50-200); Estimated Glomerular Filt Rate 100 ml/min (>60); GFR (African American) 121 ML/MIN (>60); Glucose 172 mg/dl (74-100)
[2020-01-25 15:30] LABS: Troponin I 0.03 ng/ml (0.00-0.034)
[2020-01-25 15:42] LABS: NT Pro Brain Natriuretic Pep. 314 pg/mL (0-125)
--- NOTE | 2020-01-25 16:01 | PC.NURSE ---
paged dr barclay
--- NOTE | 2020-01-25 16:03 | PC.NURSE ---
Dr Hunter spoke with Dr May
--- NOTE | 2020-01-25 16:08 | CA_ITS ---
APPROVED REPORT EXAM: Comprehensive 2D, Doppler, and color-flow Echocardiogram Associate Product Integrity Engineer: Griselda Cummings RT(R) Ht: 5 ft 9 in Wt: 145lbs BSA: 1.80 BP: 168/89 mmHg Indications: CP, COPD, smoker, hyperlipidemia, cath 5 days Echo Enhancing Agent Indication: Endocardial border delineation Agent(s) / Amount(s) Used: Definity 2 cc M-Mode Dimensions RVDd 1.72 cm (0.9-2.6) LVDd 5.48 cm (3.5-5.7) LVDs 4.55 cm (3.5-5.7) IVSd 0.82 cm (0.6-1.1) PWd 1.00 cm (0.6-1.1) EF (Teich) 35.10% FS 17.00% EDV (Teich) 146.20 mL ESV (Teich) 94.90 mL Left Ventricle Limited study was performed with Definity contrast to assess left ventricular systolic function. Left atrium is mildly enlarged, left ventricle is normal size, mild concentric left ventricular hypertrophy, visually estimated ejection fraction 50% with mild posterolateral wall hypokinesis. There is no left ventricular thrombus seen. Right Ventricle Right atrium and right ventricular relatively normal size and function. Aortic Valve Aortic valve is thickened and calcified there is no aortic stenosis, there is mild aortic insufficiency. Mitral Valve Mitral valve is minimally thickened, there is mild mitral regurgitation. Tricuspid Valve Tricuspid valve is grossly normal. Pulmonic Valve Pulmonic valve is not well visualized. Great Vessels Aortic root is normal size. Pericardium No significant pericardial effusion noted. Conclusion 1. Limited study was performed with Definity contrast to assess left ventricular systolic function. Normal left ventricular size, mild concentric left ventricular hypertrophy, visually estimated ejection fraction 50% with mild posterolateral wall hypokinesis, there is no left ventricular thrombus seen. 2. Mild aortic insufficiency. 3. No significant pericardial effusion noted. Electronically signed by : Fer Arnold, 01/25/2020 18:09:55
--- NOTE | 2020-01-25 16:10 | PC.NURSE ---
Dr Casimiro salmon
--- NOTE | 2020-01-25 16:51 | PC.NURSE ---
report called to talon yang rn on second floor at this time, states she will send staff down to get pt.
[2020-01-25 17:43] LABS: Coronavirus 19 IgG Antibody Negative (Negative); Coronavirus 19 IgM Antibody Negative (Negative)
--- NOTE | 2020-01-25 19:10 | PC.NURSE ---
report given to earl
--- NOTE | 2020-01-25 19:22 | PC.NURSE ---
pt family called out requesting rn to come to room, upon entering pt family was concerned that pt chest was hurting again, pt stated it was heart burn and it happens every time she sits up, had in ED, or eats brussel sprouts. notified dr. wayne about situation, no new orders. went on and had RT obtain 1929 EKG, pt has a trop ordered for 1929 as well.
--- NOTE | 2020-01-25 19:30 | ECG_ITS ---
APPROVED REPORT Exam: Resting ECG HR:68 bpm ECG Measurements Heart Rate 68 AXES VA 142 P 67 QRSd 88 QRS 1 QT 406 T 0 QTc 431 <Conclusion> Normal sinus rhythm with sinus arrhythmia Normal ECG Electronically signed by : Elmer Witt, 01/30/2020 06:33:13
[2020-01-25 20:29] LABS: Troponin I 0.04 ng/ml (0.00-0.034)
[2020-01-25 22:56] LABS: Troponin I 0.04 ng/ml (0.00-0.034)
[2020-01-26] VITALS (14 sets, daily range): BP systolic 123–209; BP diastolic 70–111; PULSE 68–94; RESP 16–26; TEMP 36.4–36.9; O2SAT 96–100; BMI 20.9
--- NOTE | 2020-01-26 00:55 | PC.NURSE ---
0055- C/O SHARP, STABBING CP RATING 8/10 ON 0-10 PHONE CIRCUIT OPERATOR WITH C/O NAUSEA. ON ENTERING ROOM, PT IS RESTLESS AND MOANING IN BED. 0056- VS OBTAINED WITH HTN NOTED. BP-209/111 DATASCOPE, 190/110 MANUALLY. SL NITRO TAB ADMINISTERED. 0058- EKG OBTAINED WITH ARTIFACT. 0101- ADDITIONAL SL NITRO ADMINISTERED. RATING CP NOW 6/10, STILL REPORTS NAUSEA. BP REMAINS HYPERTENSIVE, BP- 190/100. 0109- PT RESTING IN BED CALMLY, EKG OBTAINED WITHOUT ARTIFACT ER PHYSICIAN ABLE TO SIGN OFF ON THIS EKG, NO ACUTE CHANGES NOTED. BP- 143/97. RATING CP 3/10 ON 0-10 PHONE CIRCUIT OPERATOR. 0123- MD COUNTER HELP NOTIFIED OF EVENT, NEW ORDERS GIVEN AT THIS TIME.
--- NOTE | 2020-01-26 02:41 | PC.NURSE ---
A&OX3. COLLET DRILLER EQUAL BILAT. LUNGS NOTED CLEAR T/O AUSCULTATION. TOLERATED RA WELL THIS SHIFT. DID APPLY 2LNC DURING EPISODE OF CP FOR COMFORT BUT O2SATS HAVE REMAINED >90% ON RA. PULSES +2. ON REASSESSMENT OF APPLICATION OF NITRO PATCH AND PHENERGAN ADMIN, PT REPORTED I FEEL BETTER BUT I AM STILL HAVING SOME SLIGHT CP. PT REPORTED THAT PAIN IS TOLERABLE. BP IS 168/78 ON REASSESSMENT. PT RESTING IN BED CALMLY WITH EYES CLOSED UPON ENTERING ROOM FOR REASSESSMENT OF NITRO AND PHENERGAN. ABDOMEN FLAT, ACTIVE BOWEL SOUNDS, SOFT AND NONTENDER PER PALPATION. PT REPORTED HAVING A SMALL, BROWN, SOFT BM AT BEGINNING OF SHIFT, THIS WAS UNWITNESSED PER STAFF. INDEPENDENT WITH ADLS. WILL CONTINUE TO MONITOR.
--- NOTE | 2020-01-26 02:45 | PC.NURSE ---
UNMEASURED AMOUNT OF EMESIS NOTED YELLOW IN COLOR.
[2020-01-26 03:33] LABS: Troponin I 0.04 ng/ml (0.00-0.034)
--- NOTE | 2020-01-26 05:30 | PC.NURSE ---
ON REASSESSMENT OF ADMINISTRATION OF TORADOL AND TYLENOL, PT NOTED RESTING WITH EYES CLOSED.
--- NOTE | 2020-01-26 07:17 | PC.NURSE ---
EFREM applied to pt at this time
--- NOTE | 2020-01-26 08:41 | HMH.CNCARD ---
History of Present Illness Consult date: 01/26/20 Requesting physician: Ryan Kirkpatrick Consult reason: chest pain Chief complaint: Chest pain Additional Medical History:: 1. CAD A. NSTEMI, 01/2020 B. LHC, 01/2020, SERA to large OM. Remaining diagonal and LAD disease to be treated medically. C. Echo, 01/21/2020, 1. Mild biatrial enlargement, normal left ventricular size, mild concentric left ventricular hypertrophy, visually estimated ejection fraction 55% with no regional wall motion abnormality, grade 1 diastolic dysfunction seen without tissue Doppler evidence of raise left atrial pressure, endocardial surfaces are poorly visualized. 2. Mildly enlarged right ventricle with normal contractility. 3. Mild aortic, mitral and tricuspid regurgitation. 4. No significant pericardial effusion noted D. Limited echo, 01/25/2020, 1. Limited study was performed with Definity contrast to assess left ventricular systolic function. Normal left ventricular size, mild concentric left ventricular hypertrophy, visually estimated ejection fraction 50% with mild posterolateral wall hypokinesis, there is no left ventricular thrombus seen. 2. Mild aortic insufficiency. 3. No significant pericardial effusion noted. 2. Tobacco use, 1 ppd 3. HTN, treatment started 01/2020 4. HLD, treatment started 01/2020 History of present illness: 64-year-old white female with recent non-ST elevation NV last week requiring drug-eluting stent placement to large OM artery presented to the emergency department last evening for 1 hour of substernal and upper abdominal discomfort after eating broccoli and beans. Symptoms were different than her previous symptoms associated with a heart attack 1 week prior but due to the intensity she contacted EMS to transport her to the hospital. She was given sublingual nitroglycerin in route with only minimal improvement in symptoms. She did have a episodes of vomiting but no diarrhea. She denies any recent fever or chills. Patient states the biggest relief came after being given Phenergan. She does have nitroglycerin paste on her left shoulder at this time but continues to complain of substernal discomfort and nausea. Patient is visibly uncomfortable in the bed. Troponins overnight are minimally elevated at 0.04?3. EKG is sinus with nonspecific ST-T abnormalities. [facility] History Medical History: Reports:: Anxiety, Depression, Hyperlipidemia, Hypertension, Myocardial Infarction Denies:: Cancer, Diabetes Mellitus Type 1, Diabetes Mellitus Type 2, MRSA *Have you ever received a pneumonia vaccine?: No *Have you received a flu vaccine this season?: No Other Medical History: Reports: Arthritis Other Surgeries: Yes: Cholecystectomy, Colonoscopy Amputation: No Fractures: No - *Social History Smoking Status: Current some day smoker Tobacco Type: cigarettes # Packs/Day (cigarettes): 1 Alcohol Intake: never Substance Use Type: denies use *Occupational Status:: retired Housing: house Household Members: family *Travel in the last 8 weeks: None - Psychiatric History Pschychiatric History:: Reports:: Anxiety, Depression Family Hx:: Cancer, Heart Attack, Hyperlipidemia, Hypertension, Stroke Meds Home Medications Medication Instructions Recorded Confirmed Type Albuterol Sulfate [Proventil Hfa] 2 puff INHALATION Q6H 01/20/20 01/25/20 History Gabapentin 800 mg PO QID 01/20/20 01/25/20 History Aspirin [Aspirin 81mg EC Tab] 81 mg PO DAILY 01/25/20 01/25/20 History Atorvastatin Calcium [Lipitor 40mg 40 mg PO HS 01/25/20 01/25/20 History Tablet*] Metoprolol Succinate [Toprol XL 25 mg PO DAILY 01/25/20 01/25/20 History 25mg tablet] Pantoprazole Sodium [Protonix 40mg 40 mg PO HS 01/25/20 01/25/20 History tablet] Ticagrelor [Brilinta 90mg 90 mg PO BID 01/25/20 01/25/20 History Tablet] lisinopriL [Zestril 10mg Tab] 10 mg PO DAILY 01/25/20 01/25/20 History Allergies Allergy/AdvReac Type Sever
--- NOTE | 2020-01-26 09:26 | HMH.PHAVTE ---
[facility] Pharm[facility] VTE Monitoring - Patient Demographics Admission date: 01/26/20 Report Date: 01/26/20 Time: 09:29 Allergies/Adverse Reactions: Patient Allergies cephalexin [From KEFLEX] Allergy (Intermediate, Verified 01/26/20 07:39) Unknown allergy reaction Penicillins Allergy (Intermediate, Verified 11/17/19 11:01) I-HIVES Height: 1.72 m Weight: 61.961 kg Patient Problems: Current Active Problems Chest pain (Acute) - VTE Risk Labs: VTE Related Lab Results Hgb 13.5 g/dL (12.2-16.2) 01/25/20 15:00 Hct 39.1 % (37.0-47.0) 01/25/20 15:00 Plt Count 477 K/mm3 (142-424) H 01/25/20 15:00 BUN 9 mg/dl (7-17) 01/25/20 15:00 Creatinine 0.60 mg/dl (0.52-1.04) 01/25/20 15:00 Estimated Creat Clear 58 mL/min (50-200) 01/25/20 15:00 Clinical Trial Participant: No - Prophylaxis VTE Prophylaxis Ordered?: Yes Types of VTE Prophylaxis: TEDS Knee High Location of Applied Device: Bilateral Lower Extremeties
--- NOTE | 2020-01-26 10:07 | PC.NURSE ---
pt reports the GI cocktail did help a lot but reports soreness still. will report to Kayla REYES
--- NOTE | 2020-01-26 10:40 | PC.NURSE ---
spoke with Kayla REYES, he stated to give her night time dose of protonix now and to let dr. sawant know there is nothing else from his stand point that they can do, they do not believe it is cardiac related. spoke with dr. sawant who stated he will look into her chart and put orders in.
--- NOTE | 2020-01-26 10:47 | PC.NURSE ---
Notified BJ in surgical suite about consult for Dr. Gates.
--- NOTE | 2020-01-26 11:24 | HMH.GSCON ---
*Admission Date: 01/26/20 *Reason for consult:: Dysphagia; upper abdominal pain *History of present illness: This is a 64-year-old female seen in consultation from Dr. Bolton for evaluation regarding upper abdominal pain and dysphagia. She is status post non-ST elevation myocardial infarction last week requiring drug-eluting stent. Supervision for emergency department with lower chest/epigastric pain. She has been evaluated by cardiology (see forwarded copy of HPI below). Currently, she states that she feels better after the Phenergan and other stomach medicine (GI cocktail) . No hematemesis. No melena. She does report a remote history of peptic ulcer disease. From Cardiology note: 64-year-old white female with recent non-ST elevation [place] last week requiring drug-eluting stent placement to large OM artery presented to the emergency department last evening for 1 hour of substernal and upper abdominal discomfort after eating broccoli and beans. Symptoms were different than her previous symptoms associated with a heart attack 1 week prior but due to the intensity she contacted EMS to transport her to the hospital. She was given sublingual nitroglycerin in route with only minimal improvement in symptoms. She did have a episodes of vomiting but no diarrhea. She denies any recent fever or chills. Patient states the biggest relief came after being given Phenergan. She does have nitroglycerin paste on her left shoulder at this time but continues to complain of substernal discomfort and nausea. Patient is visibly uncomfortable in the bed. Troponins overnight are minimally elevated at 0.04?3. EKG is sinus with nonspecific ST-T abnormalities. Review of Systems - Constitutional Denies chills - Eyes Denies change in vision - ENT Reports difficulty swallowing - *Cardiovascular Denies shortness of breath - *Respiratory Denies cough - *Gastrointestinal Reports abdominal pain, Reports nausea, Reports pain with swallowing - *Genitourinary Denies painful urination - *Musculoskeletal Denies neck pain - Integumentary/Breasts Denies new lesions - *Neurologic Denies dizziness, Denies headache(s), Denies dizziness - Psychiatric Denies confusion - Endocrine Denies flushing - Hematologic/Lymphatic Denies easy bleeding - Allergic/Immunologic Denies wheezing H History Medical History: Reports:: Anxiety, Depression, Hyperlipidemia, Hypertension, Myocardial Infarction Denies:: Cancer, Diabetes Mellitus Type 1, Diabetes Mellitus Type 2, MRSA *Have you ever received a pneumonia vaccine?: No *Have you received a flu vaccine this season?: No Other Medical History: Reports: Arthritis Other Surgeries: Yes: Cholecystectomy, Colonoscopy Amputation: No Fractures: No - *Social History Smoking Status: Current some day smoker Tobacco Type: cigarettes # Packs/Day (cigarettes): 1 Alcohol Intake: never Substance Use Type: denies use *Occupational Status:: retired Housing: house Household Members: family *Travel in the last 8 weeks: None - Psychiatric History Pschychiatric History:: Reports:: Anxiety, Depression Family Hx:: Cancer, Heart Attack, Hyperlipidemia, Hypertension, Stroke Meds Home Medications Medication Instructions Recorded Confirmed Type Albuterol Sulfate [Proventil Hfa] 2 puff INHALATION Q6H 01/20/20 01/25/20 History Gabapentin 800 mg PO QID 01/20/20 01/25/20 History Aspirin [Aspirin 81mg EC Tab] 81 mg PO DAILY 01/25/20 01/25/20 History Atorvastatin Calcium [Lipitor 40mg 40 mg PO HS 01/25/20 01/25/20 History Tablet*] Metoprolol Succinate [Toprol XL 25 mg PO DAILY 01/25/20 01/25/20 History 25mg tablet] Pantoprazole Sodium [Protonix 40mg 40 mg PO HS 01/25/20 01/25/20 History tablet] Ticagrelor [Brilinta 90mg 90 mg PO BID 01/25/20 01/25/20 History Tablet] lisinopriL [Zestril 10mg Tab] 10 mg PO DAILY 01/25/20 01/25/20 History Allergies Allergy/AdvReac Type Sev
--- NOTE | 2020-01-26 11:44 | HMH.PHAINT ---
MED REC-COMPARE RX MED LIST WITH RX BOTTLES AND PHARMACY LIST.
--- NOTE | 2020-01-26 11:59 | HMH.HP ---
*Admission Date: 01/26/20 *Chief complaint: chest pain *History of present illness: this pt was seen in the ed with chest pain -t reports sharp stabbing like chest pain to center of chest. 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 Pt had a stent placed last week by Dr. May. During triage pt was sat up in the bed to get her into a gown, pt got nauseated and reported worsening pain, pt vomitted x1. 64-year-old female with history of recent cardiac catheterization and stent placement presenting to the emergency department chest pain. Pain started 1 hour prior to arrival. Was described as intense and located on the left side of her chest. Is sharp and stabbing. It does not radiate to her jaw, arm, back. Pain is intermittent. No change with motion. She took aspirin today and her prescribed blood thinner. Received nitro x1 with EMS. The nitro helped. No recent lower extremity swelling, shortness of breath, history of DVT or PE. No recent illness, fevers, chills, nausea, vomiting. n summary this is a 64-year-old female presenting to the emergency department with chest pain. Patient appears uncomfortable on arrival. Hypertensive with systolic blood pressure of 190. Concern for stent occlusion, vasospasm, ACS. Plan to obtain CBC, CMP, chest x-ray, EKG, BNP, troponin profile Chart review shows that her cardiac catheterization was on January 20, [address]. She had a 30% LAD occlusion, 80% diagonal artery occlusion, near complete occlusion of the marginal artery (which was stented). Patient was discharged on Brilinta 90 mg twice daily, aspirin 81 mg, metoprolol 25, lisinopril. EKG shows minor ST segment changes in the inferior and lateral leads. No STEMI. Initial laboratory results are unremarkable. Troponin not elevated. On reassessment patient's pain was significantly improved after second nitroglycerin. Consulted her pomology teacher, Dr. May, no immediate catheterization or intervention indicated. Agreeable with plan for admission and sequential EKG, troponin, echo. pt admitted for al [facility] History I have reviewed the patient's past medical history: Yes Medical History: Reports:: Anxiety, Depression, Hyperlipidemia, Hypertension, Myocardial Infarction Denies:: Cancer, Diabetes Mellitus Type 1, Diabetes Mellitus Type 2, MRSA *Have you ever received a pneumonia vaccine?: No *Have you received a flu vaccine this season?: No Other Medical History: Reports: Arthritis Other Surgeries: Yes: Cholecystectomy, Colonoscopy Amputation: No Fractures: No - *Social History Smoking Status: Current some day smoker Tobacco Type: cigarettes # Packs/Day (cigarettes): 1 Alcohol Intake: never Substance Use Type: denies use *Occupational Status:: retired Housing: house Household Members: family *Travel in the last 8 weeks: None - Psychiatric History Pschychiatric History:: Reports:: Anxiety, Depression Family Hx:: Cancer, Heart Attack, Hyperlipidemia, Hypertension, Stroke Review of Systems - Review of Systems Review of systems:: pertinent systems reviewed and negative unless documented below - Constitutional Denies fever(s) - Eyes Denies change in vision - ENT Denies sore throat - *Cardiovascular Reports chest pain, Reports chest pain at rest - *Respiratory Denies cough - *Gastrointestinal Denies abdominal pain - *Genitourinary Denies blood in urine - *Musculoskeletal Denies joint pain - Integumentary/Breasts Denies rash - *Neurologic Denies confusion, Denies dizziness, Denies headache(s), Denies dizziness - Psychiatric Denies confusion Meds Home Medications Medication Instructions Recorded Confirmed Type Albuterol Sulfate [Proventil Hfa] 2 puff INHALATION Q6HP PRN 01/20/20 01/26/20 History Gabapentin 800 mg PO QID 01/20/20 01/25/20 History Aspirin [Aspirin 81mg EC Tab] 81 mg PO DAILY 01/25/20 01/25/20 History Atorvastatin Calcium [Lipitor 40mg 40 mg PO HS 01/25/20 01/25/20 History
[2020-01-27] VITALS: PULSE 70
[2020-01-27 04:00] VITALS: BP 139/83; PULSE 80; PULSE 81; RESP 19; TEMP 36.7; O2SAT 96
--- NOTE | 2020-01-27 04:52 | PC.NURSE ---
A&OX3. WOOD CABINET FINISHER EQUAL BILAT. LUNGS NOTED CLEAR T/O AUSCULTATION. TOLERATED RA WELL. ABDOMEN NOTED WITH ACTIVE BOWEL SOUNDS, SOFT AND NONTENDER PER PALPATION. PT REPORTED MY STOMACH JUST FEELS SORE . PULSES +2. NSR NOTED PER AMUSEMENT OR RECREATION CARD CHECKER. PT REPORTS I JUST FEEL REALLY TIRED TONIGHT. INDEPENDENT WITH ADL'S THIS SHIFT, TOLERATED WELL. SBA WITH AMBULATION, TOLERATED WELL. NPO AFTER MIDNIGHT. VSS. WILL CONTINUE TO MONITOR.
[2020-01-27 05:05] VITALS: BMI 20.2
[2020-01-27 08:00] VITALS: BP 144/83; PULSE 78; PULSE 80; RESP 20; O2SAT 98
--- NOTE | 2020-01-27 08:00 | FL_ITS ---
PROCEDURE: FL UPPER GI ESOPHAGUS W/AIR CLINICAL INDICATION: Epigastric and abdominal pain COMPARISON: No exams were available for comparison TECHNIQUE: In the upright position the patient was observed to swallow barium in both the AP and lateral view. The cervical esophagus was examined under fluoroscopy with images obtained. The patient was then placed prone in the right anterior oblique position and was observed to swallow barium with Valsalva technique . FLUOROSCOPY TIME: 3 minutes and 4 seconds FINDINGS: The swallowing function is normal. Spot films of the cervical esophagus show no abnormality. There is a small to moderate-sized sliding hiatal hernia. The stomach is well distended with barium and air and shows no intrinsic abnormality. The duodenal bulb and duodenal sweep and proximal small bowel appear radiographically normal. There is no significant GE reflux however there was somewhat poor primary peristalsis with retention of barium in the lower 2/3 of the esophagus throughout most of the study. IMPRESSION: Small to moderate size sliding hiatal hernia with somewhat poor primary esophageal motility but no significant GE reflux seen during the study Dictated by: Dr. Nacho Dugan MD 01/27/2020 10:39 Dr. Nacho Dugan MD in [place] 01/27/2020 10:39
--- NOTE | 2020-01-27 08:40 | HMH.GSPN ---
Subjective Patient reports: no new complaints, feels better (She states that she feels better . She also confirms that she hopes to go home today .) Progress Note: A&P (1) Chest pain Status: Acute Current Visit: Yes (2) Anterior chest wall pain Status: Acute Current Visit: No (3) Non-ST elevation myocardial infarction (NSTEMI) Status: Acute Current Visit: No (4) COPD (chronic obstructive pulmonary disease) Status: Chronic Current Visit: No (5) Depression Status: Chronic Current Visit: No (6) Family history of ischemic heart disease Status: Chronic Current Visit: No (7) Tobacco user Status: Chronic Current Visit: No (8) Dysphagia Status: Acute Assessment and plan: BS pending Current Visit: Yes (9) Upper abdominal pain Status: Acute Assessment and plan: UGI series pending Overall, the patient states that she is better . She wishes to go home today. Okay from surgical standpoint for discharge after barium swallow/UGI series with outpatient follow-up. Current Visit: Yes Exam Vital signs and Labs for Last 24 Hours: Temp Pulse Resp BP Pulse Ox 98.1 F 78 20 144/83 H 98 01/27/20 04:00 01/27/20 08:00 01/27/20 08:00 01/27/20 08:00 01/27/20 08:00 I & O for Last 24 hours: Intake & Output 01/24/20 01/25/20 01/26/20 01/27/20 11:59 11:59 11:59 11:59 Intake Total 490 / 490 210 / 210 Output Total 400 / 400 300 / 300 Balance 90 / 90 -90 / -90 Weight 136 lb 9.6 oz 132 lb - Constitutional no acute distress - *Routine Respiratory Exam Absent: respiratory distress - *Routine Cardiovascular Exam Present: RRR - *Routine Neurological Exam Present: alert - Routine Psychiatric Exam Present: normal affect
--- NOTE | 2020-01-27 09:19 | HMH.PNCARD ---
Subjective Date: 01/27/20 Time: 09:00 Principal diagnosis: chest pain and abdominal pain Interval history: The patient states that she is feeling much better today. She states that she still does have some epigastric pain and abdominal aching. She states that this is been better since being in the hospital and getting a GI cocktail. She denies any chest pain or pressure. She states that her epigastric pain does not feel like it felt prior to her MS last week. She states overall she is feeling better and she does want to go home today. She is scheduled to have a barium swallow and upper GI series today. She denies any fever, chills, vomiting, diarrhea, PND or orthopnea. She denies any shortness of breath or edema. Exam Vital signs and Labs for Last 24 Hours: Temp Pulse Resp BP Pulse Ox 98.1 F 78 20 144/83 H 98 01/27/20 04:00 01/27/20 08:00 01/27/20 08:00 01/27/20 08:00 01/27/20 08:00 I & O for Last 24 hours: Intake & Output 01/24/20 01/25/20 01/26/20 01/27/20 23:59 23:59 23:59 23:59 Intake Total 690 / 690 10 / 10 Output Total 700 / 700 Balance -10 / -10 10 / 10 Weight 139 lb 7 oz 136 lb 9.6 oz 132 lb Narrative: Telemetry strip shows sinus rhythm with a rate of 78. - Constitutional no acute distress, average body habitus - *Routine HEENT Exam Head: Present: normocephalic, atraumatic Eye: Present: EOMI, PERRL ENT: Present: mucous membranes moist - *Routine Neck Exam Present: supple, full ROM, normal carotid upstroke. Absent: JVD, carotid bruit, lymphadenopathy - *Routine Respiratory Exam Present: CTA bilaterally - *Routine Cardiovascular Exam Present: RRR, Normal S1, Normal S2. Absent: murmur, gallop - *Routine Abdominal Exam Present: soft, normoactive bowel sounds, tenderness (To the epigastric region). Absent: distended - *Routine Extremities Exam Present: full ROM, pulses intact, normal capillary refill. Absent: cyanosis, clubbing, edema - *Routine Skin Exam Present: intact, warm. Absent: erythema, rash - *Routine Neurological Exam Present: alert, oriented X3 Progress Note: A&P (1) Chest pain Status: Acute Current Visit: Yes (2) Non-ST elevation myocardial infarction (NSTEMI) Status: Acute Current Visit: No (3) COPD (chronic obstructive pulmonary disease) Status: Chronic Current Visit: No (4) Depression Status: Chronic Current Visit: No (5) Tobacco user Status: Chronic Current Visit: No (6) Dysphagia Status: Acute Current Visit: Yes (7) Upper abdominal pain Status: Acute Current Visit: Yes Assessment and Plan for All Diagnoses:: Plan: 1. The patient was admitted to the hospital with epigastric pain and upper abdominal pain. She states that her symptoms are different than they were with her MS last week. She states her symptoms are better today. She is scheduled to undergo barium swallow and upper GI series today. 2. Her coronary artery disease is likely stable. She did undergo stenting last week and has tolerated this well. Her troponin is slightly elevated but has remained stable this is most likely from her coronary intervention last week. No plans for invasive cardiac testing at this time. 3. The patient will remain on dual antiplatelet therapy with Brilinta and aspirin. 4. Her blood pressure is acceptable at this time. 5. Her LDL goal is less than 55. 6. No further recommendations at this time from a cardiac standpoint. The patient is to continue with her GI work-up. She is to follow-up in 1 week on an outpatient basis when she is discharged home. Thank you for the opportunity to help participate in the care of this patient.
--- NOTE | 2020-01-27 13:14 | HMH.DCSUM ---
General - General Admission date:: 01/25/20 Discharge date: 01/27/20 HPI HPI: this pt was seen in the ed with chest pain -t reports sharp stabbing like chest pain to center of chest. 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 Pt had a stent placed last week by Dr. May. During triage pt was sat up in the bed to get her into a gown, pt got nauseated and reported worsening pain, pt vomitted x1. 64-year-old female with history of recent cardiac catheterization and stent placement presenting to the emergency department chest pain. Pain started 1 hour prior to arrival. Was described as intense and located on the left side of her chest. Is sharp and stabbing. It does not radiate to her jaw, arm, back. Pain is intermittent. No change with motion. She took aspirin today and her prescribed blood thinner. Received nitro x1 with EMS. The nitro helped. No recent lower extremity swelling, shortness of breath, history of DVT or PE. No recent illness, fevers, chills, nausea, vomiting. n summary this is a 64-year-old female presenting to the emergency department with chest pain. Patient appears uncomfortable on arrival. Hypertensive with systolic blood pressure of 190. Concern for stent occlusion, vasospasm, ACS. Plan to obtain CBC, CMP, chest x-ray, EKG, BNP, troponin profile Chart review shows that her cardiac catheterization was on January 20, [address]. She had a 30% LAD occlusion, 80% diagonal artery occlusion, near complete occlusion of the marginal artery (which was stented). Patient was discharged on Brilinta 90 mg twice daily, aspirin 81 mg, metoprolol 25, lisinopril. EKG shows minor ST segment changes in the inferior and lateral leads. No STEMI. Initial laboratory results are unremarkable. Troponin not elevated. On reassessment patient's pain was significantly improved after second nitroglycerin. Consulted her consumer safety inspector, Dr. May, no immediate catheterization or intervention indicated. Agreeable with plan for admission and sequential EKG, troponin, echo. pt admitted for eval Hospital Course Hospital Course: pt was seen by card -. CAD A. NSTEMI, 01/2020 B. LHC, 01/2020, SERA to large OM. Remaining diagonal and LAD disease to be treated medically. C. Echo, 01/21/2020, 1. Mild biatrial enlargement, normal left ventricular size, mild concentric left ventricular hypertrophy, visually estimated ejection fraction 55% with no regional wall motion abnormality, grade 1 diastolic dysfunction seen without tissue Doppler evidence of raise left atrial pressure, endocardial surfaces are poorly visualized. 2. Mildly enlarged right ventricle with normal contractility. 3. Mild aortic, mitral and tricuspid regurgitation. 4. No significant pericardial effusion noted D. Limited echo, 01/25/2020, 1. Limited study was performed with Definity contrast to assess left ventricular systolic function. Normal left ventricular size, mild concentric left ventricular hypertrophy, visually estimated ejection fraction 50% with mild posterolateral wall hypokinesis, there is no left ventricular thrombus seen. 2. Mild aortic insufficiency. 3. No significant pericardial effusion noted. 2. Tobacco use, 1 ppd 3. HTN, treatment started 01/2020 4. HLD, treatment started 01/2020 History of present illness: 64-year-old white female with recent non-ST elevation [place] last week requiring drug-eluting stent placement to large OM artery presented to the emergency department last evening for 1 hour of substernal and upper abdominal discomfort after eating broccoli and beans. Symptoms were different than her previous symptoms associated with a heart attack 1 week prior but due to the intensity she contacted EMS to transport her to the hospital. She was given sublingual nitroglycerin in route with only minimal improvement in symptoms. She did have a episodes of vomiting but no diarrhea. She denies any recent fever or chills. Jermaine
[2020-01-27 18:39] LABS: H. pylori Breath Test Positive (Negative)
--- NOTE | 2020-01-27 19:25 | PC.NURSE ---
report given to tez
--- NOTE | 2020-01-27 20:10 | PC.NURSE ---
Called and made Dr. Witt aware at 2010 that pt did result positive for h pylori and was d/cd per dr sawant today. he stated it would be treated outpatient.
== END 2020-01-27 16:20 | disposition home or self-care (01) ==
LOC: ER 15:29 → 2ND 16:43
PROVIDERS: Surgery; Admitting Provider Family Medicine; Emergency Provider Emergency Medicine; PCP Physician Assistant; Visit Provider Family Medicine
DX: I21.4 Non-ST elevation (NSTEMI) myocardial infarction (principal); J44.9 Chronic obstructive pulmonary disease, unspecified; Z72.0 Tobacco use; Z82.49 Family history of ischemic heart disease and other diseases of the circulatory system; I20.8 Other forms of angina pectoris; Z88.0 Allergy status to penicillin; Z88.1 Allergy status to other antibiotic agents; Z79.899 Other long term (current) drug therapy; Z79.82 Long term (current) use of aspirin; Z79.01 Long term (current) use of anticoagulants; R07.9 Chest pain, unspecified
CPT/HCPCS: 36415; 71045; 74221; 74246; 74247; 80048; 83013; 83880; 84484; 85025; 86328; 93005; 93308; 94640; 99284; G0378; Q9957

== ENCOUNTER → 2020-02-01 08:48 | Outpatient (CLI) | payer MEDICARE, MEDICAID, SELFPAY ==
[2020-02-01 09:19] LABS: Hematocrit 34.9 % (37.0-47.0); Hemoglobin 11.3 g/dL (12.2-16.2)
[2020-02-01 09:36] LABS: Blood Urea Nitrogen 10 mg/dl (7-17); Estimated Glomerular Filt Rate 84 ml/min (>60); GFR (African American) 102 ML/MIN (>60)
== END ==
PROVIDERS: Visit Provider Internal Medicine
DX: I25.10 Atherosclerotic heart disease of native coronary artery without angina pectoris (principal)
CPT/HCPCS: 36415; 82565; 84520; 85014; 85018

== ENCOUNTER 2020-04-08 20:13 | Observation (INO) | payer MEDICARE, MEDICAID, SELFPAY ==
[2020-04-08] VITALS (8 sets, daily range): BP systolic 119–174; BP diastolic 75–95; PULSE 65–80; RESP 16–19; TEMP 36.5–36.7; O2SAT 96–100; BMI 26.6; BMI 24.3
--- NOTE | 2020-04-08 20:10 | ECG_ITS ---
APPROVED REPORT Exam: Resting ECG HR:83 bpm ECG Measurements Heart Rate 83 AXES DE 96 P 70 QRSd 84 QRS 20 QT 374 T 55 QTc 439 Conclusion Sinus rhythm with short DE Nonspecific ST abnormality Abnormal ECG Electronically signed by : Elmer Witt, 04/10/2020 19:59:04
--- NOTE | 2020-04-08 20:20 | XR_ITS ---
PROCEDURE: XR CHEST 2V CLINICAL HISTORY: chest pain COMPARISON: CR CXR CHEST(2 VIEWS-NOT PORTABLE) from 08/30/2014 CR XR CHEST 2V from 01/20/2020 CR XR CHEST PORTABLE from 01/25/2020 FINDINGS: The cardiomediastinal silhouette and pulmonary vascularity are within normal limits. The lungs are clear without infiltrates, suspicious nodules, or pleural effusions. No acute bony abnormalities. IMPRESSION: No acute findings. Dictated by: Yves Pelaez MD 04/09/2020 05:40 Yves Pelaez MD in [place] 04/09/2020 05:40
[2020-04-08 20:34] LABS: Basophils % 0.4 % (0.1-2.0); Eosinophils # 0.2 K/mm3 (0.0-0.4); Eosinophils % 2.4 % (0.1-12.0); Hematocrit 38.4 % (37.0-47.0); Hemoglobin 12.6 g/dL (12.2-16.2); Lymphocytes # 3.5 K/mm3 (0.7-4.5); Lymphocytes % 41.9 % (10-50); Mean Corpuscular HGB Conc 32.9 g/dL (31.8-35.4); Mean Corpuscular Volume 97.3 fl (81-99); Mean Platelet Volume 8.1 fl (7.4-10.4); Monocytes # 0.5 K/mm3 (0.1-1.0); Monocytes % 6.2 % (1.7-9.3); Neutrophils # 4.1 K/mm3 (1.8-7.8); Neutrophils % 49.1 % (37.0-80.0); Platelet Count 337 K/mm3 (142-424); Red Blood Count 3.94 M/mm3 (4.20-5.40); Red Cell Distribution Width 14.2 % (11.5-17.5); White Blood Count 8.4 K/mm3 (4.8-10.8)
[2020-04-08 20:38] LABS: Chloride 98 mmol/L (98-107); Potassium 3.8 mmoL/L (3.5-5.1); Sodium 135 mmol/L (136-145)
[2020-04-08 20:41] LABS: Anion Gap 11.8 mEq/L (5-15); Blood Urea Nitrogen 13 mg/dl (7-17); Calcium 9.8 mg/dl (8.4-10.2); Carbon Dioxide 29 mmol/L (22.0-30.0); Creatinine Clearance Estimated 68 mL/min (50-200); Estimated Glomerular Filt Rate 84 ml/min (>60); GFR (African American) 102 ML/MIN (>60); Glucose 155 mg/dl (74-100)
[2020-04-08 20:51] LABS: NT Pro Brain Natriuretic Pep. 74.8 pg/mL (0-125)
[2020-04-08 20:58] LABS: Troponin I < 0.01 ng/ml (0.00-0.034)
[2020-04-08 20:59] LABS: Free T4 (Free Thyroxine) 1.04 ng/dl (0.78-2.19)
[2020-04-08 21:00] LABS: Coronavirus 19 IgG Antibody Negative (Negative); Coronavirus 19 IgM Antibody Negative (Negative)
[2020-04-08 21:12] LABS: Thyroid Stimulating Hormone 2.97 uIU/mL (0.465-4.68)
[2020-04-08 21:20] LABS: Erythrocyte Sedimentation Rate 86 mm/hr (0-30)
--- NOTE | 2020-04-08 21:20 | PC.NURSE ---
pt up to bathroom and off monitor at this time
--- NOTE | 2020-04-08 21:32 | HMH.EDCP ---
ED Disposition Clinical Impression: Tobacco user, Elevated erythrocyte sedimentation rate Chest pain Qualifiers: Chest pain type: precordial pain Qualified Code(s): R07.2 - Precordial pain CAD (coronary artery disease) Qualifiers: Coronary Disease-Associated Artery/Lesion type: unspecified vessel or lesion type [place] vs. transplanted heart: [place] heart Associated angina: with unspecified angina Qualified Code(s): I25.119 - Atherosclerotic heart disease of [place] coronary artery with unspecified angina pectoris Disposition: Admitted as Observation Condition on Discharge: Good Referrals: Tori Peralta PA [Primary Care Provider] - - Critical Care Critical Care Time: No Attestation: On 04/08/20, the high probability of a clinically significant, sudden or life threatening deterioration of the following system(s) required my full and direct attention, intervention and personal management. The time I documented below is in addition to time spent performing reported procedures but includes the following listed in this critical care notation. Medical Decision Making - Medical Records Medical records reviewed: Yes: I reviewed the patient's medical records. - [place] Inquiry Pt receiving controlled substance: No Vital Signs: 04/08/20 20:14 Temperature 98.1 F Temperature Source Oral Pulse Rate [Right Brachial] 80 Respiratory Rate 19 Blood Pressure [Right Arm] 174/95 H Blood Pressure Mean [Right Arm] 121 Blood Pressure Source [Right Arm] Automatic Cuff Blood Pressure Position [Right Arm] Sitting 02 Sat by Pulse Oximetry 96 Oxygen Delivery Method Room Air - Lab Data Lab results reviewed: Yes: I reviewed the patient's lab results. Lab Results 04/08/20 20:24: WBC 8.4, RBC 3.94 L, Hgb 12.6, Hct 38.4, MCV 97.3, MCH 32.0 H, MCHC 32.9, RDW 14.2, Plt Count 337, MPV 8.1, Neut % (Auto) 49.1, Lymph % (Auto) 41.9, [place] % (Auto) 6.2, Eos % (Auto) 2.4, Baso % (Auto) 0.4, Neut # (Auto) 4.1, Lymph # (Auto) 3.5, [place] # (Auto) 0.5, Eos # (Auto) 0.2, Baso # (Auto) 0.0 04/08/20 20:24: Sodium 135 L, Potassium 3.8, Chloride 98, Carbon Dioxide 29, Anion Gap 11.8, BUN 13, Creatinine 0.70, Estimated Creat Clear 68, Estimated GFR 84, Est GFR ( Amer) 102, Glucose 155 H, Calcium 9.8, Troponin I < 0.01, NT-Pro-B Natriuret Pep 74.8, TSH 2.97 04/08/20 20:24: SARS-CoV-2 IgG Ab (Rapid) Negative, SARS-CoV-2 IgM Ab (Rapid) Negative 04/08/20 20:24: Free T4 1.04 04/08/20 20:24: ESR 86 H 04/08/20 20:24: C-Reactive Protein 2.0 Result diagrams: 04/08/20 20:24 04/08/20 20:24 Orders (Tests/Meds): ED MEDICATIONS Generic Name Dose Route Start Last Admin Trade Name Freq PRN Reason Stop Dose Admin Sodium Chloride 1,000 mls @ 999 mls/hr 04/08/20 20:45 04/08/20 20:49 Sod Chlor 0.9% 1000ml Bag IV 04/08/20 21:45 999 mls/hr .Q1H1M BAILEE Administration Discontinued Medications Generic Name Dose Route Start Last Admin Trade Name Freq PRN Reason Stop Dose Admin Aspirin 243 mg 04/08/20 20:45 04/08/20 20:49 Aspirin 81mg Chewable Tablet PO 04/08/20 20:46 243 mg ONCE ONE Administration ORDERS Category Date Time Status XR chest 2V Stat Exams 04/08/20 20:20 Taken Troponin I Q3H Lab 04/08/20 23:30 Ordered Troponin I Q3H Lab 04/09/20 02:30 Ordered - Radiology Data #1 Image(s): Chest Image Reviewed: Yes I reviewed the patient's radiology image Preliminary Findings: Normal/NAD - ECG Data Tracing #1 Normal Sinus Rhythm: Yes Ischemic changes: non-specific ST-T wave changes - Physician Consults Physician Consulted: leatha Reason -: Admission Medical Decision Narrative: pt has known cad - pt has chest pain - aangina type and will be admitted for eval and treatment Chest Pain HPI - General Chief Complaint: Chest Pain Stated Complaint: chest pain Time Seen by Provider: 04/08/20 20:30 Mode of Arrival: Family Vehicle Source of Information: Patient, Relative, Medical Record
--- NOTE | 2020-04-08 22:43 | PC.NURSE ---
PT ARRIVED TO THE FLOOR VIA W/C FROM ED W/STAFF AT [id number]
[2020-04-09] VITALS (9 sets, daily range): BP systolic 94–133; BP diastolic 58–80; PULSE 60–90; RESP 14–20; TEMP 36.5–36.8; O2SAT 95–98; BMI 23.9
[2020-04-09 00:26] LABS: Troponin I < 0.01 ng/ml (0.00-0.034)
[2020-04-09 03:48] LABS: Troponin I < 0.01 ng/ml (0.00-0.034)
[2020-04-09 07:07] LABS: Basophils % 0.4 % (0.1-2.0); Eosinophils # 0.1 K/mm3 (0.0-0.4); Eosinophils % 2.2 % (0.1-12.0); Hematocrit 35.6 % (37.0-47.0); Hemoglobin 11.6 g/dL (12.2-16.2); Lymphocytes # 2.6 K/mm3 (0.7-4.5); Lymphocytes % 41.4 % (10-50); Mean Corpuscular HGB Conc 32.5 g/dL (31.8-35.4); Mean Corpuscular Hemoglobin 32.6 pg (27.0-31.2); Mean Corpuscular Volume 100.2 fl (81-99); Mean Platelet Volume 8.7 fl (7.4-10.4); Monocytes # 0.4 K/mm3 (0.1-1.0); Monocytes % 6.5 % (1.7-9.3); Neutrophils % 49.4 % (37.0-80.0); Platelet Count 310 K/mm3 (142-424); Red Blood Count 3.55 M/mm3 (4.20-5.40); White Blood Count 6.1 K/mm3 (4.8-10.8)
[2020-04-09 07:16] LABS: Chloride 111 mmol/L (98-107); Sodium 141 mmol/L (136-145)
[2020-04-09 07:19] LABS: Alanine Aminotransferase 18 U/L (12-78); Albumin Level 3.8 g/dl (3.5-5.0); Albumin/Globulin Ratio 1.6 (1.1-1.8); Alkaline Phosphatase 62 U/L (38-126); Aspartate Amino Transferase 26 U/L (14-36); Bilirubin,Total 0.4 mg/dl (0.2-1.3); Blood Urea Nitrogen 10 mg/dl (7-17); Calcium 9.2 mg/dl (8.4-10.2); Carbon Dioxide 27 mmol/L (22.0-30.0); Creatinine Clearance Estimated 58 mL/min (50-200); Estimated Glomerular Filt Rate 84 ml/min (>60); GFR (African American) 102 ML/MIN (>60); Globulin 2.4 g/dL (1.3-3.2); Glucose 104 mg/dl (74-100); Magnesium 1.9 mg/dl (1.6-2.3); Total Protein,Serum 6.2 g/dl (6.3-8.2)
--- NOTE | 2020-04-09 11:47 | HMH.PHAVTE ---
[facility] Pharmacy VTE Monitoring - Patient Demographics Admission date: 04/08/20 Report Date: 04/09/20 Time: 11:47 Allergies/Adverse Reactions: Patient Allergies cephalexin [From KEFLEX] Allergy (Intermediate, Verified 03/29/20 14:07) Unknown allergy reaction Penicillins Allergy (Intermediate, Verified 03/29/20 14:07) I-HIVES lisinopril Adverse Reaction (Intermediate, Verified 03/29/20 14:07) cough Height: 1.65 m Weight: 65.091 kg Patient Problems: Current Active Problems Elevated erythrocyte sedimentation rate (Acute) Tobacco user (Chronic) Chest pain (Acute) CAD (coronary artery disease) (Chronic) - VTE Risk Labs: VTE Related Lab Results Hgb 11.6 g/dL (12.2-16.2) L 04/09/20 06:50 Hct 35.6 % (37.0-47.0) L 04/09/20 06:50 Plt Count 310 K/mm3 (142-424) 04/09/20 06:50 BUN 10 mg/dl (7-17) 04/09/20 06:50 Creatinine 0.70 mg/dl (0.52-1.04) 04/09/20 06:50 Estimated Creat Clear 58 mL/min (50-200) 04/09/20 06:50 Was VTE Risk Assessment Performed: Yes VTE Score: 4 VTE Risk Level: Low Risk - Prophylaxis VTE Prophylaxis Ordered?: Yes Types of VTE Prophylaxis: TEDS Knee High Location of Applied Device: Bilateral Lower Extremeties
--- NOTE | 2020-04-09 11:55 | HMH.PHAINT ---
MEDICATION RECONCILIATION COMPLETED ON PATIENT USING EXTERNAL FILL HISTORY FROM PHARMACY AND LIST FROM CARDIOLOGY OFFICE. -NEEL ELAMD
--- NOTE | 2020-04-09 16:49 | HMH.HP ---
*Admission Date: 04/08/20 *Chief complaint: chest pain *History of present illness: 64 yr old female pt presents with complaints of chest tightness/pain located in center of chest with radiation down left arm and up into left neck. Pt states when she woke up with the discomfort and kept it throughout day today. Pt states she smokes 1 ppd, and is normally slightly soa. denies nausea,vomiting. denies dizziness. denies headache. Pt admitted for chest pain and cardiology consult. pt states she had a stent placed in jan [facility] History I have reviewed the patient's past medical history: Yes Medical History: Reports:: Anxiety, Coronary Artery Disease, Depression, Gastroesophageal Reflux Disease(GERD), Hyperlipidemia, Hypertension, Myocardial Infarction Denies:: Cancer, Diabetes Mellitus Type 1, Diabetes Mellitus Type 2, MRSA *Have you ever received a pneumonia vaccine?: No *Have you received a flu vaccine this season?: Yes Other Medical History: Reports: Arthritis Other Surgeries: Yes: Cardiac Catheterization, Cholecystectomy, Colonoscopy, Coronary Stent Amputation: No Fractures: No - *Social History Last grade of school completed: 7th or 8th Smoking Status: Current every day smoker Tobacco Type: cigarettes # Packs/Day (cigarettes): 1 Alcohol Intake: never Substance Use Type: denies use *Occupational Status:: unemployed Housing: house Household Members: family *Travel in the last 8 weeks: None - Psychiatric History Pschychiatric History:: Reports:: Anxiety, Depression Family Hx:: Cancer Review of Systems - Review of Systems Review of systems:: pertinent systems reviewed and negative unless documented below - Constitutional Denies body ache(s), Denies fatigue - Eyes Denies change in vision - ENT Denies bleeding gums - *Cardiovascular Reports chest pain, Reports chest pain at rest, Reports shortness of breath - *Respiratory Reports shortness of breath with activity - *Gastrointestinal Denies nausea, Denies vomiting - *Genitourinary Denies hot flashes - *Musculoskeletal Denies joint pain - Integumentary/Breasts Denies rash - *Neurologic Denies headache(s), Denies seizure-like activity - Psychiatric Denies anxiety - Endocrine Denies excessive sweating - Hematologic/Lymphatic Denies enlarged lymph nodes - Allergic/Immunologic Denies GI upset with certain foods Meds Home Medications Medication Instructions Recorded Confirmed Type Aspirin [Aspirin 81mg EC Tab] 81 mg PO DAILY 01/25/20 04/08/20 History ticagrelor 90 mg tablet 90 mg PO BID #60 tab 02/01/20 04/08/20 Rx gabapentin 800 mg tablet 800 mg PO QID #120 tab 02/11/20 04/08/20 Rx pantoprazole 40 mg tablet,delayed 40 mg PO HS tab 03/01/20 04/09/20 History release albuterol sulfate 90 mcg/actuation 2 puff INHALATION Q6HP PRN #18 g 03/07/20 04/08/20 Rx aerosol inhaler promethazine 12.5 mg tablet 12.5 mg PO Q6H PRN #15 tab 03/16/20 04/08/20 Rx ondansetron 8 mg disintegrating 8 mg PO Q8H PRN #30 tab 03/29/20 04/08/20 Rx tablet Losartan Potassium [Cozaar 100mg 100 mg PO DAILY 04/08/20 04/08/20 History Tablets] Metoprolol Succinate [Metoprolol 50 mg PO DAILY 04/08/20 04/08/20 History Succinate 50mg Tablet*] Rosuvastatin Calcium 20 mg PO DAILY 04/08/20 04/08/20 History levoFLOXacin [Levaquin 500mg 500 mg PO DAILY 04/09/20 04/09/20 History tab] Allergies Allergy/AdvReac Type Severity Reaction Status Date / Time cephalexin [From Ubisense] Allergy Intermediate Unknown Verified 03/29/20 14:07 allergy reaction Penicillins Allergy Intermediate I-HIVES Verified 03/29/20 14:07 lisinopril AdvReac Intermediate cough Verified 03/29/20 14:07 Exam Vital signs and Labs for Last 24 Hours: Temp Pulse Resp BP Pulse Ox 97.8 F 60 18 117/70 98 04/09/20 14:00 04/09/20 14:00 04/09/20 14:00 04/09/20 14:00 04/09/20 14:00 Laboratory Results - last 24 hr 04/08/20 20:24: WBC 8.4, RBC 3.94 L, Hgb 12.6
--- NOTE | 2020-04-09 18:40 | PC.NURSE ---
pt has been stable this shift. Gets OOB on her own. Plans are to discharge home tomorrow. NO chest pain this shift. Has been NSR on tele.
[2020-04-10] VITALS: BP 102/54; PULSE 70; PULSE 74; RESP 14; TEMP 36.6; O2SAT 93
[2020-04-10 04:00] VITALS: BP 91/47; PULSE 66; PULSE 70; RESP 16; TEMP 36.5; O2SAT 97
[2020-04-10 05:21] VITALS: BMI 24.4
[2020-04-10 08:00] VITALS: BP 112/57; PULSE 60; PULSE 69; RESP 17; TEMP 36.7; O2SAT 100
[2020-04-10 12:00] VITALS: BP 141/79; PULSE 60; PULSE 68; RESP 17; TEMP 36.9; O2SAT 98
[2020-04-10 16:00] VITALS: BP 121/77; PULSE 70; PULSE 73; RESP 17; TEMP 36.8; O2SAT 100
--- NOTE | 2020-04-10 16:47 | P.PN_ITS ---
Internal Medicine - PN: Subj *Date: 04/10/20 *Time: 11:30 Interval history: pt sitting up in bed states no c/o. states no cp Exam Vital signs and Labs for Last 24 Hours: Temp Pulse Resp BP Pulse Ox 98.2 F 73 17 121/77 100 04/10/20 16:00 04/10/20 16:00 04/10/20 16:00 04/10/20 16:00 04/10/20 16:00 I & O for Last 24 hours: Intake & Output 04/08/20 04/09/20 04/10/20 04/11/20 11:59 11:59 11:59 11:59 Intake Total 2084 / 2084 1918 / 1918 480 / 480 Output Total 1700 / 1700 250 / 250 Balance 384 / 384 1668 / 1668 480 / 480 Weight 143 lb 8 oz 146 lb 8 oz - Constitutional no acute distress - *Routine HEENT Exam Head: Present: normocephalic Eye: Present: PERRL ENT: Present: mucous membranes moist - *Routine Neck Exam Present: supple. Absent: lymphadenopathy - *Routine Respiratory Exam Present: CTA bilaterally - *Routine Cardiovascular Exam Present: RRR - *Routine Abdominal Exam Present: soft, normoactive bowel sounds. Absent: tenderness - *Routine Extremities Exam Present: normal capillary refill. Absent: cyanosis, clubbing, edema - *Routine Skin Exam Present: warm. Absent: rash - *Routine Neurological Exam Present: alert, oriented X3 Assessment and Plan (1) Stented coronary artery Status: Acute Category: Surgical Code(s): Z95.5 - Presence of coronary angioplasty implant and graft (2) Chest pain Status: Acute Qualifiers: Chest pain type: precordial pain Qualified Code(s): R07.2 - Precordial pain Category: Medical Code(s): R07.9 - Chest pain, unspecified (3) CAD (coronary artery disease) Status: Chronic Qualifiers: Coronary Disease-Associated Artery/Lesion type: unspecified vessel or lesion type [place] vs. transplanted heart: [place] heart Associated angina: with unspecified angina Qualified Code(s): I25.119 - Atherosclerotic heart disease of [place] coronary artery with unspecified angina pectoris Category: Medical Code(s): I25.10 - Atherosclerotic heart disease of [place] coronary artery without angina pectoris (4) HLD (hyperlipidemia) Status: Chronic Qualifiers: Hyperlipidemia type: mixed hyperlipidemia Qualified Code(s): E78.2 - Mixed hyperlipidemia Category: Medical Code(s): E78.5 - Hyperlipidemia, unspecified (5) HTN (hypertension) Status: Chronic Qualifiers: Hypertension type: essential hypertension Qualified Code(s): I10 - Essential (primary) hypertension Category: Medical Code(s): I10 - Essential (primary) hypertension - Assessment and plan all Dx Assessment and Plan for all problems:: rounded with dr sawant all orders per dr sawant cardiology to see pt in am
[2020-04-10 20:00] VITALS: BP 114/66; PULSE 84; PULSE 90; RESP 14; TEMP 36.7; O2SAT 96
--- NOTE | 2020-04-10 20:28 | PC.NURSE ---
A&O X4, LUNGS CLEAR, PULSES EQUAL, NO COMPLAINTS OF CHEST PAIN DURING THIS RN SHIFT. PATIENT AMBULATED IN HALLWAY, TOLERATED WELL. NO CONCERNS AT THIS TIME.
[2020-04-11] VITALS: PULSE 80
--- NOTE | 2020-04-11 03:36 | PC.NURSE ---
Pt. has not c/o cp, n/v/d, soa or pain this shift. NSR per director of cardiac rehabilitation. Diminished lung sounds bilat with reported intermittent productive cough with thick, yellow sputum.
--- NOTE | 2020-04-11 03:40 | PC.NURSE ---
Pt. has not c/o cp, n/v/d, soa or pain this shift. Diminished lung sounds bilat with reported intermittent productive cough with thick, yellow sputum.
[2020-04-11 04:00] VITALS: BP 121/67; PULSE 60; PULSE 61; RESP 14; TEMP 36.8; O2SAT 97
[2020-04-11 05:26] VITALS: BMI 24.5
[2020-04-11 07:38] LABS: Basophils # 0.1 K/mm3 (0-0.2); Basophils % 0.5 % (0.1-2.0); Eosinophils # 0.1 K/mm3 (0.0-0.4); Eosinophils % 1.5 % (0.1-12.0); Hematocrit 37.7 % (37.0-47.0); Lymphocytes % 35.7 % (10-50); Mean Corpuscular HGB Conc 31.8 g/dL (31.8-35.4); Mean Corpuscular Hemoglobin 32.1 pg (27.0-31.2); Mean Corpuscular Volume 100.9 fl (81-99); Mean Platelet Volume 8.1 fl (7.4-10.4); Monocytes # 0.6 K/mm3 (0.1-1.0); Monocytes % 7.4 % (1.7-9.3); Neutrophils # 4.6 K/mm3 (1.8-7.8); Neutrophils % 54.8 % (37.0-80.0); Platelet Count 311 K/mm3 (142-424); Red Blood Count 3.74 M/mm3 (4.20-5.40); Red Cell Distribution Width 13.9 % (11.5-17.5); White Blood Count 8.4 K/mm3 (4.8-10.8)
[2020-04-11 07:46] LABS: Chloride 108 mmol/L (98-107)
[2020-04-11 07:47] LABS: Sodium 142 mmol/L (136-145)
[2020-04-11 07:50] LABS: Blood Urea Nitrogen 10 mg/dl (7-17); Calcium 9.2 mg/dl (8.4-10.2); Carbon Dioxide 29 mmol/L (22.0-30.0); Creatinine Clearance Estimated 59 mL/min (50-200); Estimated Glomerular Filt Rate 84 ml/min (>60); GFR (African American) 102 ML/MIN (>60); Glucose 95 mg/dl (74-100)
[2020-04-11 08:00] VITALS: BP 139/80; PULSE 60; PULSE 65; RESP 20; TEMP 36.8; O2SAT 99
--- NOTE | 2020-04-11 09:20 | HMH.DCSUM ---
General - General Admission date:: 04/08/20 Discharge date: 04/11/20 HPI HPI: 64 yr old female pt presents with complaints of chest tightness/pain located in center of chest with radiation down left arm and up into left neck. Pt states when she woke up with the discomfort and kept it throughout day today. Pt states she smokes 1 ppd, and is normally slightly soa. denies nausea,vomiting. denies dizziness. denies headache. Pt admitted for chest pain and cardiology consult. pt states she had a stent placed in sept Hospital Course Hospital Course: pt has did well with dec chest pain and tolerating new med regiment- she has tolerated diet and activity and was seen by card - year old female admitted to [facility] on 04/09/2020 with Atypical chest pain. Pt stated for the past few days prior to presenting to the ED, she stated that the chest pain had become worse and had started radiating down the left arm. Pt stated the pain would not ease pr resolve with rest. Pt complained of increase shortness of breath with the chest pain. Denies swelling of the lower extremities. Denies fever, nausea or vomiting. Upon this assessment, pt denied chest pain, tightness or pressure. Denies shortness of breath with exertion. No swelling of the lower extremities noted. Initial workup was performed in the ED. Workup was unremarkable. EKC revealed Sinus rhythm with heart rate of 70bpm. Tropinons were negative. CXR revealed no acute findings. Last echocardiogram (01/2020) revealed Mild AI and EF 50% with mild posterolateral wall hypokinesis. Last cath (01/2020) revealed Critical disease of the large secondary obtuse marginal and persistent severe stenosis in large first diagnial artery. Discussed plan of care with Dr. May. Recommended no cardiac testing at this time. Pt is pain free and feels much better. Discussed plan of care with pt. Pt stated that she wants to go home. Recommend pt to follow up in Cardiac clinic in one week. Advised pt that if chest pain/shortness of breath occurs or becomes worse, return to the ED or cardiology clinic. Objective Vital signs: Temp Pulse Resp BP Pulse Ox 98.2 F 65 20 139/80 99 04/11/20 08:00 04/11/20 08:00 04/11/20 08:00 04/11/20 08:00 04/11/20 08:00 no acute distress - *Routine HEENT Exam Head: Present: normocephalic Eye: Present: EOMI, PERRL ENT: Present: mucous membranes dry - *Routine Neck Exam Present: supple - *Routine Respiratory Exam Present: CTA bilaterally - *Routine Cardiovascular Exam Present: RRR, murmur - *Routine Abdominal Exam Present: soft - *Routine Extremities Exam Absent: calf tenderness - *Routine Skin Exam Present: intact - *Routine Neurological Exam Present: alert, oriented X3, CN II-XII intact - Routine Psychiatric Exam Present: normal affect Results Labs on day of discharge: Labs from last 24 hours 04/11/20 04/11/20 06:30 06:30 WBC 8.4 D RBC 3.74 L Hgb 12.0 L Hct 37.7 MCV 100.9 H MCH 32.1 H MCHC 31.8 RDW 13.9 Plt Count 311 MPV 8.1 Neut % (Auto) 54.8 Lymph % (Auto) 35.7 [place] % (Auto) 7.4 Eos % (Auto) 1.5 Baso % (Auto) 0.5 Neut # (Auto) 4.6 Lymph # (Auto) 3.0 [place] # (Auto) 0.6 Eos # (Auto) 0.1 Baso # (Auto) 0.1 Sodium 142 Potassium 4.0 Chloride 108 H Carbon Dioxide 29 Anion Gap 9.0 BUN 10 Creatinine 0.70 Estimated Creat Clear 59 Estimated GFR 84 Est GFR ( Amer) 102 Glucose 95 Calcium 9.2 DS: Diagnosis - Discharge Diagnosis (1) Stented coronary artery Status: Acute (2) Chest pain Status: Acute (3) CAD (coronary artery disease) Status: Chronic (4) HLD (hyperlipidemia) Status: Chronic (5) HTN (hypertension) Status: Chronic (6) Elevated erythrocyte sedimentation rate Status: Acute (7) Tobacco user Status: Chronic (8) COPD (chronic obstructive pulmonary disease) Status: Chronic Disch
--- NOTE | 2020-04-11 10:53 | HMH.CNCARD ---
History of Present Illness Consult date: 04/11/20 Requesting physician: Joseph Bolton Consult reason: chest pain Chief complaint: chest pain and shortness of breath Additional Medical History:: 1. Atypical chest pain (04/11/2020) a. Tropinons negative 2. Dyspnea (04/11/2020) 3. Coronary Artery Disease a. Last cath (01/2020) Critical disease to Distal large secondary obstuse artery and persistent severe stenosis in Large first diagonal artery 4. Tobacco use a. Smokes 1 ppd for over 30 years. 5. Mild AI a. Echocardiogram (07/2019) 6. Essential Hypertension 7. Hyperlipidmia a. On Crestor. History of present illness: 64 year old female admitted to [facility] on 04/09/2020 with Atypical chest pain. Pt stated for the past few days prior to presenting to the ED, she stated that the chest pain had become worse and had started radiating down the left arm. Pt stated the pain would not ease pr resolve with rest. Pt complained of increase shortness of breath with the chest pain. Denies swelling of the lower extremities. Denies fever, nausea or vomiting. Upon this assessment, pt denied chest pain, tightness or pressure. Denies shortness of breath with exertion. No swelling of the lower extremities noted. Initial workup was performed in the ED. Workup was unremarkable. EKC revealed Sinus rhythm with heart rate of 70bpm. Tropinons were negative. CXR revealed no acute findings. Last echocardiogram (01/2020) revealed Mild AI and EF 50% with mild posterolateral wall hypokinesis. Last cath (01/2020) revealed Critical disease of the large secondary obtuse marginal and persistent severe stenosis in large first diagnial artery. Discussed plan of care with Dr. May. Recommended no cardiac testing at this time. Pt is pain free and feels much better. Discussed plan of care with pt. Pt stated that she wants to go home. Recommend pt to follow up in Cardiac clinic in one week. Advised pt that if chest pain/shortness of breath occurs or becomes worse, return to the ED or cardiology clinic. [facility] History Medical History: Reports:: Anxiety, Coronary Artery Disease, Depression, Gastroesophageal Reflux Disease(GERD), Hyperlipidemia, Hypertension, Myocardial Infarction Denies:: Cancer, Diabetes Mellitus Type 1, Diabetes Mellitus Type 2, MRSA *Have you ever received a pneumonia vaccine?: No *Have you received a flu vaccine this season?: Yes Other Medical History: Reports: Arthritis Other Surgeries: Yes: Cardiac Catheterization, Cholecystectomy, Colonoscopy, Coronary Stent Amputation: No Fractures: No - *Social History Last grade of school completed: 7th or 8th Smoking Status: Current every day smoker Tobacco Type: cigarettes # Packs/Day (cigarettes): 1 Alcohol Intake: never Substance Use Type: denies use *Occupational Status:: unemployed Housing: house Household Members: family *Travel in the last 8 weeks: None - Psychiatric History Pschychiatric History:: Reports:: Anxiety, Depression Family Hx:: Cancer Meds Home Medications Medication Instructions Recorded Confirmed Type Aspirin [Aspirin 81mg EC Tab] 81 mg PO DAILY 01/25/20 04/08/20 History ticagrelor 90 mg tablet 90 mg PO BID #60 tab 02/01/20 04/08/20 Rx gabapentin 800 mg tablet 800 mg PO QID #120 tab 02/11/20 04/08/20 Rx pantoprazole 40 mg tablet,delayed 40 mg PO HS tab 03/01/20 04/09/20 History release albuterol sulfate 90 mcg/actuation 2 puff INHALATION Q6HP PRN #18 g 03/07/20 04/08/20 Rx aerosol inhaler promethazine 12.5 mg tablet 12.5 mg PO Q6H PRN #15 tab 03/16/20 04/08/20 Rx ondansetron 8 mg disintegrating 8 mg PO Q8H PRN #30 tab 03/29/20 04/08/20 Rx tablet Losartan Potassium [Cozaar 100mg 100 mg PO DAILY 04/08/20 04/08/20 History Tablets] Metoprolol Succinate [Metoprolol 50 mg PO DAILY 04/08/20 04/08/20 History Succinate 50mg Tablet*] Rosuvastatin Calcium 20 mg PO DAILY 04/08/20 04/08/20 History levoFLOXacin [Levaquin 500
[2020-04-11 11:26] VITALS: BP 111/71; PULSE 57; RESP 20; TEMP 36.9; O2SAT 100
--- NOTE | 2020-04-11 12:02 | PC.NURSE ---
1200 Discharge education provided to pt, questions encouraged and answered. Pt will be discharged home when her ride arrives.
== END 2020-04-11 12:18 | disposition home or self-care (01) ==
LOC: ER 21:45 → 2ND 22:04
PROVIDERS: Nurse Practitioner Family; Admitting Provider Emergency Medicine; Emergency Provider Emergency Medicine; PCP Physician Assistant; Visit Provider Family Medicine
DX: I25.118 Atherosclerotic heart disease of native coronary artery with other forms of angina pectoris (principal); R07.9 Chest pain, unspecified; Z72.0 Tobacco use; I10 Essential (primary) hypertension; E78.5 Hyperlipidemia, unspecified; I25.2 Old myocardial infarction; Z95.5 Presence of coronary angioplasty implant and graft; Z88.0 Allergy status to penicillin; Z88.1 Allergy status to other antibiotic agents; Z88.8 Allergy status to other drugs, medicaments and biological substances; Z79.01 Long term (current) use of anticoagulants; Z79.51 Long term (current) use of inhaled steroids; Z79.82 Long term (current) use of aspirin; Z79.899 Other long term (current) drug therapy; J44.9 Chronic obstructive pulmonary disease, unspecified; R06.9 Unspecified abnormalities of breathing
CPT/HCPCS: 36415; 71046; 80048; 80053; 83735; 83880; 84439; 84443; 84484; 85025; 85651; 86140; 86328; 93005; 96365; 99284; G0378

== ENCOUNTER → 2020-05-10 11:53 | Outpatient (CLI) | payer MEDICARE, MEDICAID, SELFPAY ==
[2020-05-12 10:28] LABS: H. pylori Stool Ag, EIA Negative (Negative)
== END ==
PROVIDERS: Visit Provider Surgery
DX: R10.9 Unspecified abdominal pain (principal)
CPT/HCPCS: 87338

== ENCOUNTER → 2020-08-01 15:13 | Outpatient (CLI) | payer MEDICARE, MEDICAID, SELFPAY | PROVIDERS: Visit Provider Physician Assistant | DX: R30.0 Dysuria (principal) | CPT/HCPCS: 87086 ==

== ENCOUNTER → 2020-08-03 10:38 | Outpatient (CLI) | payer MEDICARE, MEDICAID, SELFPAY ==
[2020-08-03 12:06] LABS: Alanine Aminotransferase 22 U/L (12-78); Albumin Level 4.4 g/dl (3.5-5.0); Alkaline Phosphatase 81 U/L (38-126); Aspartate Amino Transferase 34 U/L (14-36); Bilirubin,Indirect 0.6 mg/dL (0.0-0.9); Bilirubin,Total 0.6 mg/dl (0.2-1.3); Bilirubin,Unconjugated 0.6 mg/dL (0.0-1.1); Chol/HDL Ratio 2.8 (1-3.5); Cholesterol 169 mg/dl (140-200); HDL Cholesterol 61 mg/dl (40-60); Total Protein,Serum 6.9 g/dl (6.3-8.2); Triglycerides 127 mg/dl (30-150); VLDL Cholesterol 25 mg/dL (0-40)
[2020-08-03 12:17] LABS: Direct LDL Cholesterol 88.67 mg/dL (100-129)
== END ==
PROVIDERS: Visit Provider Urology
DX: E78.5 Hyperlipidemia, unspecified (principal); I10 Essential (primary) hypertension; I25.10 Atherosclerotic heart disease of native coronary artery without angina pectoris; R06.00 Dyspnea, unspecified; Z72.0 Tobacco use
CPT/HCPCS: 36415; 80061; 80076

== ENCOUNTER → 2021-01-10 13:16 | Outpatient (CLI) | payer MEDICARE, MEDICAID, SELFPAY ==
--- NOTE | 2021-01-10 13:16 | US_ITS ---
PROCEDURE: US TRANSVAGINAL CLINICAL INDICATION: pelvic pain COMPARISON: US PTV US PELVIS-TRANSVAGINAL ONLY from 09/30/2015 FINDINGS: UTERUS: 5cm x 4cmx 2cm with a combined endometrial thickness of 2.8mm LEFT OVARY: [id number] with a volume of 1ml. RIGHT OVARY: [id number] with a volume of 0.5ml. There is a 5 x 2 mm calcification in the fundus of the uterus similar to the previous exam and could be due to small area of calcification within the fibroid. Unremarkable appearing adnexa. No cul-de-sac fluid. IMPRESSION: Overall no significant change with no acute finding. Small calcification in the uterus possibly due to small calcified fibroid unchanged. Dictated by: Yves Pelaez MD 01/11/2021 09:41 Yves Pelaez MD in OV 01/11/2021 09:41
== END ==
PROVIDERS: PCP Physician Assistant; Visit Provider Physician Assistant
DX: R10.2 Pelvic and perineal pain (principal)
CPT/HCPCS: 76830

== ENCOUNTER → 2021-03-24 14:49 | Outpatient (CLI) | payer MEDICARE, MEDICAID, SELFPAY ==
--- NOTE | 2021-03-24 14:50 | MR_ITS ---
PROCEDURE INFORMATION: Exam: MR Lumbar Spine Without Contrast Exam date and time: 03/24/2021 2:50 PM Age: 65 years old Clinical indication: Low back pain; Additional info: Lbp. Lbp. No injury or trauma. Prior MR 07-17-16 TECHNIQUE: Imaging protocol: Multiplanar magnetic resonance images of the lumbar spine without intravenous contrast. COMPARISON: [employer] [facility]/O MRI-L-SPINE W/O 07/17/2016 2:05 PM FINDINGS: Vertebrae: Increased edema in the endplates at L5-S1. This is likely due to degenerative endplate changes. Spinal cord: Normal signal. No cord compression. L1-L2: Mild degenerative disc disease. No significant narrowing. L2-L3: Minimal disc bulge. Mild facet arthropathy. No significant narrowing. L3-L4: Minimal disc bulge. Mild facet arthropathy. No significant narrowing. L4-L5: Minimal disc bulge. Mild facet arthropathy. No significant narrowing. L5-S1: Loss of disc height is again seen. There is a broad-based bulge. Superimposed on this is a central protrusion that is similar to the 2017. There is also left foraminal protrusion present. Disc material abuts the transiting left S1 nerve root and this is similar to prior. [id number] left and mild right neural foraminal stenosis as well. This may result in impingement on the exiting left L5 nerve root. Soft tissues: Unremarkable. IMPRESSION: Fairly stable findings of degenerative spondylopathy worst at L5-S1. There appears to be impingement on the exiting left L5 nerve root as well as mild mass effect on the transiting left S1 nerve root.
== END ==
PROVIDERS: PCP Physician Assistant; Visit Provider Physician Assistant
DX: M54.50 Low back pain, unspecified (principal)
CPT/HCPCS: 72148; 76376

== ENCOUNTER → 2022-10-02 11:08 | Outpatient (CLI) | payer MEDICARE, MEDICAID, SELFPAY ==
--- NOTE | 2022-10-02 11:14 | XR_ITS ---
FINAL REPORT CLINICAL HISTORY: left shoulder pain x 1 month FINDINGS: Left shoulder Three views were obtained. There is no acute fracture or dislocation. The joint spaces appear normal. No soft tissue abnormality is identified. IMPRESSION: No acute process. Reviewed, Interpreted and Dictated by Dilan Smith MD Transcribed by Jessica Cano Authenticated and [facility]
--- NOTE | 2022-10-02 11:14 | XR_ITS ---
FINAL REPORT CLINICAL HISTORY: pna COMPARISON: 04/08/2020 FINDINGS: TWO-VIEW CHEST The heart size is normal. The mediastinum is normal. The lungs are clear. There is no pneumothorax. IMPRESSION: No acute cardiopulmonary process. Reviewed, Interpreted and Dictated by Dilan Smith MD Transcribed by Jessica Cano Authenticated and [facility]
== END ==
PROVIDERS: PCP Family Medicine; Visit Provider Family Medicine
DX: M25.612 Stiffness of left shoulder, not elsewhere classified (principal); R06.00 Dyspnea, unspecified
CPT/HCPCS: 71046; 73030

== ENCOUNTER → 2022-11-27 13:52 | Outpatient (CLI) | payer MEDICARE, MEDICAID, SELFPAY ==
--- NOTE | 2022-11-27 13:52 | CT_ITS ---
FINAL REPORT TECHNIQUE: Axial images through the abdomen and pelvis was performed by computed tomography. Sagittal and coronal reformatted images were obtained and reviewed. This study was performed with techniques to keep radiation doses as low as reasonably achievable (ALARA). Individualized dose reduction techniques using automated exposure control or adjustment of mA and/or kV according to the patient's size were employed. CLINICAL HISTORY: epigastric pain, anorexia, nausea, cholecystectomy 20 yrs ago FINDINGS: Abdomen: Lung bases are clear. Liver, spleen, pancreas and adrenal glands have a normal CT appearance in their limited unenhanced state. Patient is status post cholecystectomy. There is nonspecific perinephric stranding. The kidneys show no stone disease or obstruction. No obvious renal mass is present. No ureteral stones are present. Pelvis: The appendix is normal. There is moderate sigmoid diverticulosis without evidence of diverticulitis. The uterus is unremarkable. No distal ureteral stones are seen. There is mild bladder wall thickening. No fluid collection or adenopathy is seen. IMPRESSION: No obstructing stone or inflammatory change. Reviewed, Interpreted and Dictated by Kayla Michaels MD Transcribed by Jessica Cano Authenticated and [facility]
== END ==
LOC: RAD 13:52
PROVIDERS: PCP Physician Assistant; Visit Provider Physician Assistant
DX: R10.13 Epigastric pain (principal)
CPT/HCPCS: 74176

== ENCOUNTER 2022-12-04 08:04 | Day surgery (SDC) | payer MEDICARE, MEDICAID, SELFPAY ==
[2022-11-29 11:12] VITALS: BMI 26.3
[2022-12-04 08:30] VITALS: BP 180/86; PULSE 75; RESP 18; TEMP 36.1; O2SAT 96
--- NOTE | 2022-12-04 08:42 | EXP.ANES.CKL ---
[facility] Disclaimer: The information contained in this section may have been updated after the patient was seen, as this information can be updated by other users. Medical History Abnormal EKG Allergies Anxiety CAD (coronary artery disease) COPD (chronic obstructive pulmonary disease) Depression Gastroesophageal reflux disease History of anemia History of diverticulitis Hyperlipidemia Hypertension Lumbar disc disease with radiculopathy Lumbar disc disease with radiculopathy Pneumonia Rash and nonspecific skin eruption Surgical History History of cholecystectomy Family History Other Bone cancer Cancer History of heart attack Social History Smoking Status: Current every day smoker tobacco type: cigarettes packs per day: 1 years smoked: 40 alcohol intake: never substance use type: denies use current occupational status: unemployed Travel in the last 8 weeks: None household members: family housing: house caffeine: Yes [facility] Anesthesia Checklist Patient Identification Patient Identification: Arm Band and Verbal (Name & ) Structural Data Admitted From: Home Planned Operative Procedure/s: EGD Consent for Planned Operative Procedure(s) Verified: Yes NPO Status Verified Time NPO: 00:00 Chart Verification Results Verified: CBC and BMP Airway Assessment C-Spine Mobility Assessed: Yes TMJ Mobility Assessed: Yes Dentition: Edentulous Neurological Assessment Level of Consciousness: Awake Hx Seizures: No Numbness or tingling in extremities: No Anesthesia Plan Anesthesia Risk discussed: Yes Anesthesia Plan: Verified ASA Class: III Anesthesia Type: MAC
[2022-12-04 08:52] VITALS: O2SAT 99
[2022-12-04 09:05] VITALS: BP 174/106; PULSE 84; RESP 16; TEMP 36.1; O2SAT 97
--- NOTE | 2022-12-04 09:05 | HMH.SCOPE ---
Procedure: Date: 12/04/22 Patient Date of :: 1955 Procedure Performed:: Esophagogastroduodenoscopy with biopsy Indications:: Dysphagia Esophageal dysmotility Note: UGI completed in March 2020 revealed a sliding hiatal hernia with moderate to poor primary motility. Breath test positive for Helicobacter pylori at that time. She completed therapy for H. pylori. Additional evaluation delayed secondary to patient suffering myocardial infarction. She now returns for EGD. Performing Provider:: Miles Gates MD Referring Provider:: . Sedation:: Monitored anesthesia care Procedure:: After informed consent was obtained the patient was taken to the endoscopy suite. Sedation ensued after the patient was transferred to the left lateral decubitus position. Pulse, blood pressure, and oxygen saturation were monitored throughout the procedure. The endoscope was advanced beyond the duodenal bulb. Retroflexion within the gastric lumen was accomplished. The gastroscope was carefully removed and the patient was transferred to recovery in stable condition. Please see findings and specimens below for detail. Findings:: Gastroesophageal junction displaced at 35 cm Moderately tortuous esophagus No mass lesions or strictures noted Moderate to large sliding hiatal hernia Mild/early Schatzki ring Bile reflux Specimens:: Antral biopsy Recommendations:: Follow-up pathology May benefit from cholestyramine (hold off for now) The patient is not an ideal candidate for sliding hiatal hernia repair secondary to dysmotility/dysphagia Continue proton pump inhibition Complications:: No immediate Estimated blood obtained (mL): 1 Colonoscopy Component Colonoscopy Component Was a colonoscopy performed during today's procedure?: No
[2022-12-04 09:15] VITALS: BP 133/97; PULSE 76; RESP 18; O2SAT 98
[2022-12-04 09:25] VITALS: BP 144/86; PULSE 70; RESP 18; O2SAT 98
[2022-12-04 09:35] VITALS: BP 147/79; PULSE 71; RESP 18; O2SAT 99
== END 2022-12-04 09:40 | disposition home or self-care (01) ==
PROVIDERS: PCP Physician Assistant; Visit Provider Surgery
PROC: 0DJ08ZZ Inspection of Upper Intestinal Tract, Via Natural or Artificial Opening Endoscopic (ICD-10-PCS; CPT 43235; principal; 2022-12-04 09:00)
DX: R13.10 Dysphagia, unspecified (principal); K22.4 Dyskinesia of esophagus; K44.9 Diaphragmatic hernia without obstruction or gangrene
CPT/HCPCS: 43239; 88305

== ENCOUNTER → 2022-12-18 14:16 | Outpatient (CLI) | payer MEDICARE, MEDICAID, SELFPAY ==
[2022-12-18 15:38] LABS: Basophils % 0.4 % (0.1-2.0); Eosinophils # 0.1 K/mm3 (0.0-0.4); Eosinophils % 1.3 % (0.1-12.0); Hematocrit 38.1 % (37.0-47.0); Hemoglobin 12.5 g/dL (12.2-16.2); Lymphocytes # 2.7 K/mm3 (0.7-4.5); Mean Corpuscular HGB Conc 32.8 g/dL (31.8-35.4); Mean Corpuscular Hemoglobin 33.6 pg (27.0-31.2); Mean Corpuscular Volume 102.2 fl (81-99); Mean Platelet Volume 8.2 fl (7.4-10.4); Monocytes # 0.5 K/mm3 (0.1-1.0); Monocytes % 6.2 % (1.7-9.3); Neutrophils % 60.2 % (37.0-80.0); Platelet Count 338 K/mm3 (142-424); Red Blood Count 3.72 M/mm3 (4.20-5.40); Red Cell Distribution Width 14.5 % (11.5-17.5); White Blood Count 8.4 K/mm3 (4.8-10.8)
[2022-12-18 16:37] LABS: Alanine Aminotransferase 18 U/L (12-78); Albumin Level 4.2 g/dl (3.5-5.0); Alkaline Phosphatase 84 U/L (38-126); Anion Gap 11.7 mEq/L (5-15); Aspartate Amino Transferase 23 U/L (14-36); Bilirubin,Indirect 0.4 mg/dL (0.0-0.9); Bilirubin,Total 0.4 mg/dl (0.2-1.3); Bilirubin,Unconjugated 0.5 mg/dL (0.0-1.1); Blood Urea Nitrogen 7 mg/dl (7-17); Calcium 9.4 mg/dl (8.4-10.2); Carbon Dioxide 29 mmol/L (22.0-30.0); Chloride 107 mmol/L (98-107); Cholesterol 162 mg/dl (140-200); Estimated Glomerular Filt Rate 72 ml/min (>60); GFR (African American) 87 ML/MIN (>60); Glucose 108 mg/dl (74-100); HDL Cholesterol 54 mg/dl (40-60); Magnesium 1.8 mg/dl (1.6-2.3); Potassium 4.7 mmoL/L (3.5-5.1); Sodium 143 mmol/L (136-145); Total Protein,Serum 6.7 g/dl (6.3-8.2); Triglycerides 143 mg/dl (30-150); VLDL Cholesterol 29 mg/dL (0-40)
[2022-12-18 16:47] LABS: Direct LDL Cholesterol 80.75 mg/dL (100-129)
[2022-12-18 16:53] LABS: Free T4 (Free Thyroxine) 0.75 ng/dl (0.78-2.19)
[2022-12-18 17:07] LABS: Thyroid Stimulating Hormone 0.52 uIU/mL (0.465-4.68)
== END ==
PROVIDERS: PCP Physician Assistant; Visit Provider Nurse Practitioner
DX: E78.5 Hyperlipidemia, unspecified (principal); I10 Essential (primary) hypertension; I25.10 Atherosclerotic heart disease of native coronary artery without angina pectoris; J44.9 Chronic obstructive pulmonary disease, unspecified; Z95.5 Presence of coronary angioplasty implant and graft; J01.00 Acute maxillary sinusitis, unspecified; R73.9 Hyperglycemia, unspecified; R13.10 Dysphagia, unspecified; R07.9 Chest pain, unspecified
CPT/HCPCS: 36415; 80048; 80061; 80076; 83036; 83735; 84439; 84443; 85025

== ENCOUNTER → 2023-01-14 09:41 | Outpatient (CLI) | payer MEDICARE, MEDICAID, SELFPAY ==
--- NOTE | 2023-01-14 09:44 | CA_ITS ---
APPROVED REPORT EXAM: Comprehensive 2D, Doppler, and color-flow Echocardiogram Team Member: Trupti Ruts RDCS Ht: 5 ft 5 in Wt: 164lbs BSA: 1.82 BP: 159/89 mmHg Indications: Shortness of Breath, CAD, Hyperlipidemia, Hypertension/HDD 2D Dimensions LVOT 1.98 cm (M/F) 1.5-2.5 M-Mode Dimensions RVDd 1.96 cm (0.9-2.6) LA Diam 3.70 cm (1.9-4.0) LVDd 5.82 cm (3.5-5.7) Ao Diam 3.26 cm (2.0-3.7) LVDs 4.36 cm (3.5-5.7) IVSd 0.92 cm (0.6-1.1) PWd 0.67 cm (0.6-1.1) EF (Teich) 48.90% FS 25.10% EDV (Teich) 167.90 mL TAPSE 1.88 (<1.7) ESV (Teich) 85.80 mL LV Diastology E Decel Time 203.00 (160-240 msec) E/A Ratio 0.6 MED E' 5.60 (< 7 cm/sec) E'/MED E' Ratio 8.32 (>14) LAT E' 6.00 (<10 cm/sec) E/LAT E' Ratio 7.77 (>14) Aortic Valve AI PHT 564.00 ms Mitral Valve MV E Max Rico. 47.00 (40-130 cm/s) MV A Velocity 83.00 (40-130 cm/s) E/A Ratio 0.56 MV Decel. Time 203.00 (160-240 ms) MV PHT 60.00 ms Left Ventricle The left ventricle is normal size. The left ventricular systolic function is normal. The left ventricular ejection fraction is within the normal range. Proximal septal thickening is present. There is normal LV segmental wall motion. The left ventricular diastolic function is normal. LVEF is 55% Right Ventricle The right ventricle is normal size. The right ventricular systolic function is normal. Atria Left atrium is mildly dilated. Right atrium is mildly dilated. There is no Doppler evidence of interatrial shunt. Aortic Valve The aortic valve is mildly thickened. The aortic valve opens well. There is no aortic valvular stenosis. Mild aortic regurgitation. Mitral Valve The mitral valve is normal in structure. No evidence of mitral valve stenosis. Mild mitral regurgitation. Tricuspid Valve The tricuspid valve leaflets are thin and pliable. Mild tricuspid regurgitation. RVSP is normal. Pulmonic Valve The pulmonary valve is normal in structure. Mild pulmonic regurgitation. Great Vessels The aortic root is normal in size. The ascending aorta is normal in size. IVC is normal in size and collapses >50% with inspiration. Pericardium Trivial pericardial effusion. Other Information Study Quality: Fair Conclusion Normal biventricular systolic function. Mild biatrial enlargement. Mild AI, MR, TR, MI. Trivial pericardial effusion. Electronically signed by : Mary Hampton, 01/17/2023 21:57:54
== END ==
PROVIDERS: PCP Physician Assistant; Visit Provider Nurse Practitioner
DX: E78.5 Hyperlipidemia, unspecified (principal); I10 Essential (primary) hypertension; I25.10 Atherosclerotic heart disease of native coronary artery without angina pectoris; J44.9 Chronic obstructive pulmonary disease, unspecified; R07.9 Chest pain, unspecified; Z95.5 Presence of coronary angioplasty implant and graft
CPT/HCPCS: 93306

== ENCOUNTER → 2023-05-01 08:54 | Outpatient (CLI) | payer MEDICARE, MEDICAID, SELFPAY ==
[2023-05-01 21:29] LABS: Barbiturates Screen,Urine Negative ng/ml (<200)
[2023-05-01 21:31] LABS: Amphetamine/Metha Screen,Urine Negative ng/ml (<1000); Benzodiazepines Screen,Urine Negative ng/ml (<200)
[2023-05-01 21:32] LABS: Cannabinoid Screen,Urine Negative ng/ml (<50)
[2023-05-01 21:33] LABS: Cocaine Screen,Urine Negative ng/ml (<300); Methadone Screen,Urine Negative ng/ml (<300)
[2023-05-01 21:34] LABS: Opiate Screen,Urine Positive ng/ml (<300)
[2023-05-01 21:35] LABS: Phencyclidine Screen,Urine Negative ng/ml (<25)
== END ==
LOC: LAB.DROPOF 05-08 08:55
PROVIDERS: PCP Physician Assistant; Visit Provider Physician Assistant
DX: G89.29 Other chronic pain (principal); M54.9 Dorsalgia, unspecified
CPT/HCPCS: 80307

== ENCOUNTER 2023-06-14 07:45 | Outpatient (CLI) | payer MEDICARE, MEDICAID, SELFPAY | END 2023-06-14 23:59 | LOC: LAB.DROPOF 06-17 07:46 | PROVIDERS: PCP Family Medicine; Visit Provider Family Medicine | DX: R05.8 Other specified cough (principal) | CPT/HCPCS: 80053; 85025 ==

== ENCOUNTER 2023-06-14 12:32 | Outpatient (CLI) | payer MEDICARE, MEDICAID, SELFPAY ==
--- NOTE | 2023-06-14 12:37 | XR_ITS ---
FINAL REPORT CLINICAL HISTORY: cough sob COMPARISON: 10/02/2022 FINDINGS: 2 views of the chest were obtained . The heart is normal in size. The mediastinum is within normal limits. The lungs are clear. There is no pneumothorax. Osseous structures are unremarkable. IMPRESSION: No acute cardiopulmonary process. Reviewed, Interpreted and Dictated by Brady Gates III, MD Transcribed by Rose Marie Neumann Authenticated and [facility]
[2023-06-14 18:40] LABS: Basophils % 0.1 % (0.1-2.0); Eosinophils % 0.2 % (0.1-12.0); Hematocrit 37.8 % (37.0-47.0); Hemoglobin 12.2 g/dL (12.2-16.2); Lymphocytes # 1.8 K/mm3 (0.7-4.5); Lymphocytes % 15.7 % (10-50); Mean Corpuscular HGB Conc 32.3 g/dL (31.8-35.4); Mean Corpuscular Hemoglobin 32.5 pg (27.0-31.2); Mean Corpuscular Volume 100.5 fl (81-99); Mean Platelet Volume 10.7 fl (7.4-10.4); Monocytes # 0.9 K/mm3 (0.1-1.0); Neutrophils # 8.6 K/mm3 (1.8-7.8); Neutrophils % 76.1 % (37.0-80.0); Platelet Count 346 K/mm3 (142-424); Red Blood Count 3.76 M/mm3 (4.20-5.40); Red Cell Distribution Width 13.6 % (11.5-17.5); White Blood Count 11.2 K/mm3 (4.8-10.8)
[2023-06-14 19:36] LABS: Alanine Aminotransferase 25 U/L (12-78); Albumin Level 3.7 g/dl (3.5-5.0); Albumin/Globulin Ratio 1.3 (1.1-1.8); Alkaline Phosphatase 94 U/L (38-126); Anion Gap 18.2 mEq/L (5-15); Aspartate Amino Transferase 54 U/L (14-36); Bilirubin,Total 0.6 mg/dl (0.2-1.3); Blood Urea Nitrogen 27 mg/dl (7-17); Calcium 8.7 mg/dl (8.4-10.2); Carbon Dioxide 21 mmol/L (22.0-30.0); Chloride 102 mmol/L (98-107); Estimated Glomerular Filt Rate 41 ml/min (>60); GFR (African American) 49 ML/MIN (>60); Globulin 2.8 g/dL (1.3-3.2); Glucose 128 mg/dl (74-100); Potassium 4.2 mmoL/L (3.5-5.1); Sodium 137 mmol/L (136-145); Total Protein,Serum 6.5 g/dl (6.3-8.2)
== END 2023-06-14 23:59 ==
LOC: RAD 12:33
PROVIDERS: PCP Physician Assistant; Visit Provider Family Medicine
DX: R05.8 Other specified cough; R09.89 Other specified symptoms and signs involving the circulatory and respiratory systems; J32.9 Chronic sinusitis, unspecified; J40 Bronchitis, not specified as acute or chronic; R53.83 Other fatigue
CPT/HCPCS: 71046; 80053; 85025

== ENCOUNTER 2023-06-26 21:59 | Outpatient (CLI) | payer MEDICARE, MEDICAID, SELFPAY ==
[2023-06-26 18:25] LABS: Basophils % 0.3 % (0.1-2.0); Eosinophils # 0.1 K/mm3 (0.0-0.4); Eosinophils % 0.7 % (0.1-12.0); Hematocrit 39.1 % (37.0-47.0); Hemoglobin 12.1 g/dL (12.2-16.2); Lymphocytes # 3.3 K/mm3 (0.7-4.5); Lymphocytes % 39.2 % (10-50); Mean Corpuscular HGB Conc 30.9 g/dL (31.8-35.4); Mean Corpuscular Hemoglobin 32.1 pg (27.0-31.2); Mean Corpuscular Volume 103.9 fl (81-99); Mean Platelet Volume 9.8 fl (7.4-10.4); Monocytes # 0.6 K/mm3 (0.1-1.0); Monocytes % 7.4 % (1.7-9.3); Neutrophils # 4.4 K/mm3 (1.8-7.8); Neutrophils % 52.5 % (37.0-80.0); Platelet Count 341 K/mm3 (142-424); Red Blood Count 3.76 M/mm3 (4.20-5.40); Red Cell Distribution Width 13.5 % (11.5-17.5); White Blood Count 8.4 K/mm3 (4.8-10.8)
[2023-06-26 19:07] LABS: Chloride 110 mmol/L (98-107); Sodium 140 mmol/L (136-145)
[2023-06-26 19:08] LABS: Potassium 3.6 mmoL/L (3.5-5.1)
[2023-06-26 19:10] LABS: Alanine Aminotransferase 20 U/L (12-78); Alkaline Phosphatase 93 U/L (38-126); Anion Gap 5.6 mEq/L (5-15); Aspartate Amino Transferase 22 U/L (14-36); Bilirubin,Total 0.4 mg/dl (0.2-1.3); Blood Urea Nitrogen 18 mg/dl (7-17); Carbon Dioxide 28 mmol/L (22.0-30.0); Cholesterol 145 mg/dl (140-200); Estimated Glomerular Filt Rate 49 ml/min (>60); GFR (African American) 60 ML/MIN (>60); Triglycerides 153 mg/dl (30-150); VLDL Cholesterol 31 mg/dL (0-40)
[2023-06-26 19:11] LABS: Albumin Level 3.5 g/dl (3.5-5.0); Albumin/Globulin Ratio 1.3 (1.1-1.8); Calcium 9.2 mg/dl (8.4-10.2); Chol/HDL Ratio 3.5 (1-3.5); Globulin 2.6 g/dL (1.3-3.2); Glucose 101 mg/dl (74-100); HDL Cholesterol 42 mg/dl (40-60); Total Protein,Serum 6.1 g/dl (6.3-8.2)
[2023-06-26 19:33] LABS: 25-OH Vitamin D, Total < 12.8 ng/mL (30-100)
[2023-06-26 19:41] LABS: Direct LDL Cholesterol 72.05 mg/dL (100-129)
[2023-06-26 20:00] LABS: Thyroid Stimulating Hormone 0.53 uIU/mL (0.465-4.68)
[2023-06-26 21:20] LABS: Creatinine,Urine Random 31 mg/dL (Not Estab.)
[2023-06-26 21:24] LABS: Hemoglobin A1C 7.6 % (4.0-6.0)
[2023-06-26 21:35] LABS: Microalbumin < 6.000 mg/L (0-16.7)
== END 2023-06-26 23:59 ==
LOC: LAB.DROPOF 22:00
PROVIDERS: PCP Physician Assistant; Visit Provider Physician Assistant
DX: E11.9 Type 2 diabetes mellitus without complications (principal); E55.9 Vitamin D deficiency, unspecified; G89.29 Other chronic pain; Z79.84 Long term (current) use of oral hypoglycemic drugs; Z79.899 Other long term (current) drug therapy
CPT/HCPCS: 80053; 80061; 82043; 82306; 82570; 83036; 84443; 85025

== ENCOUNTER 2023-10-29 07:41 | Outpatient (CLI) | payer MEDICARE, MEDICAID, SELFPAY ==
--- NOTE | 2023-10-29 07:41 | MR_ITS ---
FINAL REPORT TECHNIQUE: Multiplanar MR without gadolinium enhancement CLINICAL HISTORY: LBP radiating down RLE COMPARISON: None FINDINGS: Sagittal images show normal vertebral height. Alignment is normal. Marrow signal pattern is unremarkable. T11-12: There is a tiny right paracentral disc protrusion present. There is no evidence of central canal stenosis or neural foraminal narrowing. T12-L1: There is no evidence of central canal stenosis or neural foraminal narrowing. L1-2: A small annular bulge is present without evidence of central canal stenosis or neural foraminal narrowing. L2-3: A small annular bulge is present with facet overgrowth and mild central canal stenosis. L3-4: A small annular bulge is present with facet overgrowth and borderline central canal stenosis. L4-5: There is a tiny left paracentral disc protrusion without evidence of central canal stenosis or neural foraminal narrowing. L5-S1: There is a moderate annular bulge with a small central disc protrusion, mild facet arthropathy, mild bilateral neural foraminal narrowing and lateral recess narrowing. IMPRESSION: Mild multilevel degenerative change as described above, most severe at the L5-S1 level. Reviewed, Interpreted and Dictated by Kayla Michaels MD Transcribed by Alena Carroll Authenticated and [facility]
== END 2023-10-29 23:59 | disposition home or self-care (01) ==
LOC: RAD 07:41
PROVIDERS: PCP Physician Assistant; Visit Provider Physician Assistant
DX: M54.16 Radiculopathy, lumbar region (principal)
CPT/HCPCS: 72148

== ENCOUNTER 2024-02-27 14:54 | Outpatient (CLI) | payer MEDICARE, MEDICAID, SELFPAY ==
--- NOTE | 2024-02-27 14:55 | CT_ITS ---
FINAL REPORT TECHNIQUE: Thin section axial images were obtained from the lung apices to the upper abdomen by computed tomography. Reformatted images were obtained and reviewed. This study was performed with techniques to keep radiation doses al low as reasonably achievable (ALARA). Individualized dose reduction techniques using automated exposure control or adjustment of mA and/or kV according to the patient's size were employed. CLINICAL HISTORY: CURRENT SMOKER 2PPD X 40+ YEARS COMPARISON: None FINDINGS: CHEST CT LOW DOSE 68-year-old female, current smoker, 80+ pack year history CTDI vol (mGy): 2.9 DLP (mGy-cm): 103.94 There is no axillary adenopathy. There is no mediastinal or hilar mass or adenopathy. The heart is normal in size. Moderate coronary artery calcifications are noted. There is a small hiatal hernia. There is no pericardial or pleural effusion. There is mild pulmonary scarring. Lung window images demonstrate an 11 mm ground glass nodule in the superior segment of the left lower lobe, best seen on image #27 of series 3. There is a 2 mm lateral left upper lobe nodule, best seen on image #19 of series 3. There is a 2 mm lateral left lower lobe nodule best seen on image #50 of series 3. There is a 13 mm nodule with adjacent scarring, right lower lobe, image #61. Limited images of the upper abdomen are unremarkable. IMPRESSION: Lung-RADS category 4A. Recommend 3-month month follow up low dose chest CT or PET/CT. Reviewed, Interpreted and Dictated by Brady Gates III, MD Transcribed by Alena Carroll Authenticated and [facility]
== END 2024-02-27 23:59 | disposition home or self-care (01) ==
LOC: RAD 14:55
PROVIDERS: PCP Family Medicine; Visit Provider Family Medicine
DX: Z87.891 Personal history of nicotine dependence (principal)
CPT/HCPCS: 71271

== ENCOUNTER 2024-05-22 11:27 | Emergency (ER) | payer MEDICARE, MEDICAID, SELFPAY ==
[2024-05-22] VITALS (12 sets, daily range): BP systolic 96–127; BP diastolic 58–83; PULSE 60–65; RESP 11–20; TEMP 36.7; O2SAT 94–100; BMI 25.3
--- NOTE | 2024-05-22 11:31 | PC.NURSE ---
EMS naren blood; sent to lab
--- NOTE | 2024-05-22 11:32 | PC.NURSE ---
Dr. Brown at [facility] for pt eval
--- NOTE | 2024-05-22 11:35 | XR_ITS ---
FINAL REPORT CLINICAL HISTORY: ankle injury, fell on ice COMPARISON: None FINDINGS: Two views of the right ankle were obtained. There is a trimalleolar fracture with posterior dislocation. Mild displacement is noted of the fracture fragments. The joint spaces are well preserved. There is no acute soft tissue abnormality. IMPRESSION: Trimalleolar fracture as above. Reviewed, Interpreted and Dictated by Kayla Michaels MD Transcribed by Blossom Schultz Authenticated and [facility]
--- NOTE | 2024-05-22 11:35 | XR_ITS ---
FINAL REPORT CLINICAL HISTORY: ankle injury, fell on ice COMPARISON: None FINDINGS: Two views of the right foot were obtained. There is no acute fracture or dislocation identified of the foot. The joint spaces are intact. There is no soft tissue abnormality. IMPRESSION: No acute findings of the foot. Reviewed, Interpreted and Dictated by Kayla Michaels MD Transcribed by Blossom Schultz Authenticated and [facility]
--- NOTE | 2024-05-22 11:35 | XR_ITS ---
FINAL REPORT CLINICAL HISTORY: ankle injury, fell on ice COMPARISON: None FINDINGS: Two views of the right tibia/fibula were obtained. There is a trimalleolar fracture with posterior dislocation. Mild displacement is noted of the fracture fragments. The joint spaces are intact. There is no soft tissue abnormality. IMPRESSION: Trimalleolar fracture as above. Reviewed, Interpreted and Dictated by Kayla Michaels MD Transcribed by Blossom Schultz Authenticated and [facility]
--- NOTE | 2024-05-22 11:36 | HMH.EDGENADL ---
Discharge Plan Disposition Patient Disposition: Home, Self-Care Prescriptions Prescriptions: New oxycodone 5 mg tablet 5 mg PO Q6H PRN (Reason: pain) Qty: 12 0RF No Action rosuvastatin [Crestor] 40 mg tablet 40 mg PO DAILY Qty: 90 3RF fluticasone furoate-vilanterol [Breo Ellipta] 200-25 mcg/dose blister with device 1 inh inhalation DAILY 90 Days Qty: 90 0RF (DME) blood-glucose meter [Blood Glucose Monitoring] Kit See Rx Instructions .ROUTE .MEDSUPPLY Qty: 1 0RF Rx Instructions: As directed (DME) Blood Glucose Test Strip See Rx Instructions .Route Qty: 50 5RF Rx Instructions: As directed (DME) blood pressure monitor [Blood Pressure Kit] Kit See Rx Instructions .Route Qty: 1 0RF Rx Instructions: Check blood pressure once daily pantoprazole 40 mg tablet,delayed release (DR/EC) 40 mg PO DAILY cetirizine [All Day Allergy (cetirizine)] 10 mg tablet 10 mg PO DAILY Qty: 30 3RF azelastine 137 mcg (0.1 %) spray,non-aerosol 137 mcg intranasal BID Qty: 8.22 2RF Rx Instructions: administer into each nostril promethazine-DM 6.25-15 mg/5 mL syrup 5 ml PO Q6H Qty: 600 0RF nicotine 21-14-7 mg/24 hr patch, TD daily, sequential See Rx Instructions transdermal .COMPLEX Qty: 56 0RF Rx Instructions: apply 1-21 mg NICOTINE PATCH daily for 28 days; follow with 1-14 mg PATCH daily for 14 days, then 1-7mg PATCH daily for 14 days transdermal bupropion HCl [Wellbutrin SR] 150 mg tablet sustained-release 12 hr 150 mg PO BID 30 Days Qty: 60 3RF fluticasone furoate-vilanterol [Breo Ellipta] 200-25 mcg/dose blister with device See Rx Instructions .ROUTE .COMPLEX Qty: 60 12RF Dose Instruction: INHALE 1 PUFF BY MOUTH ONCE A DAY. RINSE MOUTH WITH WATER AND SPIT OUT AFTER EACH USE. Rx Instructions: INHALE 1 PUFF BY MOUTH ONCE A DAY. RINSE MOUTH WITH WATER AND SPIT OUT AFTER EACH USE. sucralfate 1 gram tablet See Rx Instructions .ROUTE .COMPLEX Qty: 120 0RF Dose Instruction: TAKE ONE TABLET BY MOUTH BEFORE MEALS AND AT BEDTIME Rx Instructions: TAKE ONE TABLET BY MOUTH BEFORE MEALS AND AT BEDTIME losartan 25 mg tablet See Rx Instructions .ROUTE .COMPLEX Qty: 90 3RF Dose Instruction: TAKE ONE TABLET BY MOUTH ONCE A DAY Rx Instructions: TAKE ONE TABLET BY MOUTH ONCE A DAY metoprolol succinate 100 mg tablet extended release 24 hr 100 mg PO DAILY 90 Days Qty: 90 3RF Rx Instructions: TAKE ONE TABLET BY MOUTH ONCE A DAY isosorbide mononitrate 30 mg tablet extended release 24 hr 30 mg PO DAILY 90 Days Qty: 90 3RF Rx Instructions: TAKE ONE TABLET BY MOUTH ONCE A DAY Jardiance 10 mg tablet 10 mg PO DAILY Qty: 90 3RF famotidine 40 mg tablet See Rx Instructions .ROUTE .COMPLEX Qty: 90 1RF Dose Instruction: TAKE ONE TABLET BY MOUTH AT BEDTIME Rx Instructions: TAKE ONE TABLET BY MOUTH AT BEDTIME aspirin 81 MG tablet,delayed release (DR/EC) 81 mg PO DAILY Referrals Follow up/Referrals: Juan M Beckwith DO [Staff Physician] - See instructions Provider,Referral, [Primary Care Provider] - See instructions Activity Restrictions/Add. Instructions Additional Instructions/Restrictions: Follow-up with orthopedic clinic next week. Call their office to schedule an appointment. Please return the emerged part with any new, concerning, or worsening symptoms. Do not get splint wet. Take Tylenol and ibuprofen for pain and oxycodone as needed for breakthrough pain. Clinical Impressions Clinical Impression: Fall Qualifiers: Encounter type: initial encounter Qualified Code(s): W19.XXXA - Unspecified fall, initial encounter Closed trimalleolar fracture of ankle Qualifiers: Encounter type: initial encounter Laterality: right Qualified Code(s): S82.851A - Displaced trimalleolar fracture of right lower leg, initial encounter for closed fracture Print Language Print Language: Welsh Discharge ED Provider: John Brown General Adult HPI General Chief complaint: Extremity Injury, Lower Stated complaint: Fall Time Seen by Provider: 05/22/24 11:28 Mode of Arrival: EMS Source of Information: Patient Limitations: No Limitations History of Present Illness HPI narrative: This is a 68-year-old female who presents with right ankle injury. States that she slipped on some ice and twisted her left ankle. Denies hitting her head or loss of consciousness. Takes a baby aspirin but no other anticoagulation use. Reports deformity to right ankle. No other injuries. Related Data Home Medications ?Medication ?Instructions ?Recorded ?Confirmed aspirin 81 mg tablet,delayed 81 mg PO DAILY heart health 01/25/20 04/20/24 release pantoprazole 40 mg tablet,delayed 40 mg PO DAILY 12/18/22 04/20/24 release Previous Rx's ?Medication ?Instructions ?Recorded blood pressure monitor (Blood #1 ea 01/09/23 Pressure Kit) blood sugar diagnostic (Blood #50 ea 01/09/23 Glucose Test strips) blood-glucose meter (Blood Glucose #1 ea 01/09/23 Monitoring kit) rosuvastatin 40 mg tablet (Crestor) 40 mg PO DAILY #90 tabs 06/26/23 fluticasone furoate 200 See Rx Instructions .Route 07/29/23 mcg-vilanterol 25 mcg/dose .COMPLEX #60 blisters inhalation powder (Breo Ellipta) sucralfate 1 gram tablet See Rx Instructions .Route 10/02/23 .COMPLEX #120 tabs losartan 25 mg tablet See Rx Instructions .Route 10/31/23 .COMPLEX #90 tabs empagliflozin 10 mg tablet 10 mg PO DAILY #90 tabs 01/23/24 (Jardiance) isosorbide mononitrate 30 mg 30 mg PO DAILY BP 90 days #90 tabs 01/23/24 tablet,extended release 24 hr metoprolol succinate 100 mg 100 mg PO DAILY BP 90 days #90 tabs 01/23/24 tablet,extended release 24 hr fluticasone furoate 200 1 inh inhalation DAILY 90 days #90 03/24/24 mcg-vilanterol 25 mcg/dose ea inhalation powder (Breo Ellipta) azelastine 137 mcg (0.1 %) nasal 137 mcg (0.137 mL) intranasal BID 04/20/24 spray #8.22 mL bupropion HCl 150 mg tablet,12 hr 150 mg PO BID 30 days #60 ea 04/20/24 sustained-release (Wellbutrin SR) cetirizine 10 mg tablet (All Day 10 mg PO DAILY #30 tabs 04/20/24 Allergy (cetirizine)) nicotine See Rx Instructions transdermal 04/20/24 21mg/24hr-14mg/24hr-7mg/24hr daily .COMPLEX #56 patches transderm patches,sequentl promethazine-DM 6.25 mg-15 mg/5 mL 5 ml PO Q6H #600 mL 04/20/24 oral syrup famotidine 40 mg tablet See Rx Instructions .Route 05/04/24 .COMPLEX #90 tabs oxycodone 5 mg tablet 5 mg PO Q6H PRN pain #12 tabs 05/22/24 Allergies Allergy/AdvReac Type Severity Reaction Status Date / Time cariprazine (From Vraylar) Allergy Intermediate itching Verified 04/20/24 13:01 cephalexin (From KEFLEX) Allergy Intermediate Unknown Verified 04/20/24 13:01 allergy reaction Penicillins Allergy Intermediate I-HIVES Verified 04/20/24 13:01 lisinopril AdvReac Intermediate cough Verified 04/20/24 13:01 glipizide AdvReac Intermediate Dizziness Uncoded 04/20/24 13:01 PFSH PFS Disclaimer: The information contained in this section may have been updated after the patient was seen, as this information can be updated by other users. Medical History (Updated 05/22/24 @ 13:48 by John Brown MD) intermediate card tender use of drug Tobacco abuse counseling Tobacco abuse Multiple lung nodules on CT Smoking greater than 30 pack years Dyspnea on exertion Upper abdominal pain Chest pain Family history of ischemic heart disease Angina pectoris Non-ST elevation myocardial infarction (NSTEMI) DM2 (diabetes mellitus, type 2) Hyperglycemia Anxiety Pneumonia History of diverticulitis Allergies Hypertension Hyperlipidemia History of anemia Abnormal EKG Gastroesophageal reflux disease CAD (coronary artery disease) COPD (chronic obstructive pulmonary disease) Lumbar disc disease with radiculopathy Rash and nonspecific skin eruption Lumbar disc disease with radiculopathy Depression Surgical History History of esophagogastroduodenoscopy (EGD) History of cholecystectomy Family History Other Bone cancer Cancer History of heart attack Social History Smoking Status: Current every day smoker tobacco type: cigarettes packs per day: 1 years smoked: 40 alcohol intake: never substance use type: denies use current occupational status: unemployed Travel in the last 8 weeks: None household members: family housing: house caffeine: Yes Have you lived/traveled outside [place] in past 30 days?: No Contact w/someone who lives/traveled outside US past 30 days?: No Exposure to someone with infectious disease in past 14 days?: No Do you have a fever (greater than 100.4 F or 38 C)?: No Have you tested positive for COVID-19: No Exposed to someone with COVID-19 in past 14 days?: No Do you have a sore throat?: No Do you have a cough?: No Do you have any weakness?: No Do you have any diarrhea?: No Are you experiencing any unusual bleeding?: No Do you have any muscle aches/pain?: Yes Do you have any abdominal pain?: No Are you experiencing loss of taste or smell?: No Other Medical History Have you received the Flu Vaccine for this season: No Have you received the Pneumonia Vaccine: Yes ROS Obtained: Yes All systems reviewed & no additional complaints except as documented Physical Exam General General appearance: alert and in no apparent distress Eye Eye exam: Present normal appearance, PERRL and EOMI Respiratory Respiratory exam: Present normal lung sounds bilaterally; Absent respiratory distress Cardiovascular Cardiovascular exam: Present regular rate and normal rhythm Abdominal Exam Abdominal exam: Present soft and distention; Absent tenderness, guarding or rebound Extremities Exam Extremities exam: Present normal inspection Expanded Lower Extremity Exam Right: Comment: Deformity and tenderness to ankle. Neurovascular intact distally. 2+ DP pulse. Neurological Exam Neurological exam: Present alert and oriented X3 Skin Skin exam: Present warm and dry Medical Decision Making Medical Records Medical records reviewed: Yes I reviewed the patient's medical records. Screening: Per USPSTF and CDC recommendations, given the prevalence of disease in our region, it is our hospital?s policy to screen for HIV and viral Hepatitis for all patients aged 18 and over and those with ongoing risk factors. [place]xton Inquiry Pt receiving controlled substance: No Vital Signs: 05/22/24 11:27 05/22/24 11:29 05/22/24 11:30 Temperature 98.0 F Temperature Source Oral Pulse Rate 61 61 Pulse Rate [Left Radial] 60 Respiratory Rate 18 Blood Pressure 121/83 127/75 Blood Pressure [Right Arm] 121/83 Blood Pressure Mean [Right Arm] 95 02 Sat by Pulse Oximetry 96 97 95 Oxygen Delivery Method Room Air Room Air Room Air 05/22/24 12:00 05/22/24 13:30 Temperature Temperature Source Pulse Rate 63 62 Pulse Rate [Left Radial] Respiratory Rate 13 Blood Pressure 116/74 116/77 Blood Pressure [Right Arm] Blood Pressure Mean [Right Arm] 02 Sat by Pulse Oximetry 94 L 99 Oxygen Delivery Method Room Air Room Air Lab Data Lab Results 05/22/24 11:15: HCV Ab PAULA w/Rflx PCR Qn Negative, HIV Ag/Ab Combo Qual Negative Orders (Tests/Meds): ED MEDICATIONS Discontinued Medications Generic Name Dose Route Start Last Admin Trade Name Freq PRN Reason Stop Dose Admin Hydromorphone HCl 0.5 mg 05/22/24 11:35 05/22/24 12:12 Hydromorphone 2mg/Ml Syringe IV 05/22/24 11:36 0.5 mg ONCE ONE Administration Ketamine HCl 20 mg 05/22/24 12:00 05/22/24 12:35 Ketamine 50mg/1ml Syringe IV 05/22/24 12:01 20 mg ONCE ONE Administration Lidocaine/Epinephrine 20 ml 05/22/24 12:00 05/22/24 12:14 Lidocaine 1% W/Epi 1:100,000 20ml Vial IJ 05/22/24 12:01 20 ml ONCE ONE Administration Ondansetron HCl 4 mg 05/22/24 12:08 05/22/24 12:12 Ondansetron 4mg/2ml Vial IV 05/22/24 12:09 4 mg ONCE ONE Administration Propofol 20 mg 05/22/24 13:27 05/22/24 12:37 Propofol 10mg/Ml 20ml Vial IV 05/22/24 13:28 20 mg ONCE ONE Administration ORDERS Category Date Time Status CT ankle RT wo con Stat Cat Scan 05/22/24 13:21 Taken Fibula/tibia XR right 2 views [XR tibia fibula RT 2V] Exams 05/22/24 11:35 Completed Stat XR ankle RT 2V Stat Exams 05/22/24 11:35 Completed XR ankle RT 2V Stat Exams 05/22/24 12:22 Completed XR foot RT 2V Stat Exams 05/22/24 11:35 Completed HIV Combo Stat Lab 05/22/24 11:15 Completed Hepatitis C Ab Qual. W/ RFX Stat Lab 05/22/24 11:15 Completed Medical Decision Narrative: In summary, this 68-year-old female with a history of diabetes and CAD status post stenting presents to the emergency department today with right ankle injury. On initial evaluation patient is hemodynamically stable and nontoxic-appearing. Differential diagnosis includes but is not limited to fracture, dislocation, sprain of the ankle. Based on these concerns, I ordered x-ray imaging of the right foot, ankle, tib-fib. Patient received Dilaudid for treatment. XR personally interpreted demonstrates trimalleolar ankle fracture/dislocation. Reduced patient's right ankle fracture/dislocation under moderate sedation and hematoma block. Placed in a short leg splint with stirrups. Reduction successful on repeat imaging. Discussed with orthopedic surgery who stated the patient would be appropriate to follow-up in his clinic next week. Patient prescribed a short course of oxycodone. Ultimately discharged in stable condition. Procedures Orthopedic Fracture Reduction Fracture #1: Side: right Fracture Reduction Location: other (Trimalleolar ankle fracture) Analgesia: procedural sedation and hematoma block Technique: direct manipulation and traction/counter-traction Post Reduction X-rays Demonstrate: acceptable reduction Post-reduction neuro exam: no change Post-reduction vascular exam: no change Splint Applied: Yes Patient Tolerated Procedure: no complications Orthopedic Splinting/Casting Injury #1: Side: right Lower Extremity Injury Location: ankle Lower Extremity Immobilizer: posterior splint and stirrup splint Post Cast/Splinting Neuro Status: intact and no change Post Cast/Splinting Vasc Status: intact and no change Procedural Sedation A heart and lung assessment was performed on this patient at: 12:00 Mallampati Score:: Class I Indication: fracture/dislocation reduction Preparation: bus driver/monitor applied, pulse oximeter, capnometry used, supplemental O2 applied, suction/airway equipment at bedside and IV secured Ketamine: IV Ketamine dose (mg): 20 IV Propofol dose (mg): 20 Patient Tolerated Procedure: well Complications: hypoxia Interventions: oxygen applied and airway repositioned Critical Care Critical Care Time Critical Care Time: No
--- NOTE | 2024-05-22 11:48 | PC.NURSE ---
portable radiology at
[2024-05-22] MEDS: ONDANSETRON 4MG/2ML VIAL 4 MG IV (12:12)
[2024-05-22] MEDS: HYDROMORPHONE 2MG/ML SYRINGE 0.5 MG IV (12:12)
--- NOTE | 2024-05-22 12:13 | PC.NURSE ---
cindy figueroa called rad @12:12 for disc to be burnt and power share images to [place]
[2024-05-22] MEDS: LIDOCAINE 1% W/EPI 1:100,000 20ML VIAL 20 ML IJ (12:14)
--- NOTE | 2024-05-22 12:22 | XR_ITS ---
FINAL REPORT CLINICAL HISTORY: post reduction, post splint COMPARISON: 1 hour prior FINDINGS: Two views of the right ankle were obtained. There has been interval application of a plaster cast. There has been closed reduction of the trimalleolar fracture with near anatomic alignment. Bony detail is largely obscured. IMPRESSION: Interval closed reduction. Reviewed, Interpreted and Dictated by Kayla Michaels MD Transcribed by Blossom Schultz Authenticated and [facility]
[2024-05-22] MEDS: KETAMINE 50MG/1ML SYRINGE 20 MG IV (12:35)
[2024-05-22] MEDS: PROPOFOL 10MG/ML 20ML VIAL 20 MG IV (12:37)
[2024-05-22 12:44] LABS: HIV Combo NEGATIVE (Negative)
--- NOTE | 2024-05-22 12:45 | PC.NURSE ---
Dr. Brown at BS for procedure. ORVILLE Farnsworth at BS and ERIC Rogel at BS to assist.
--- NOTE | 2024-05-22 13:04 | PC.NURSE ---
portable rad at BS for post reduction
--- NOTE | 2024-05-22 13:21 | CT_ITS ---
FINAL REPORT TECHNIQUE: Thin section axial CT images with coronal and sagittal reformats were performed of the right ankle. This study was performed with techniques to keep radiation doses as low as reasonably achievable (ALARA). Individualized dose reduction techniques using automated exposure control or adjustment of mA and/or kV according to the patient''s size were employed. CLINICAL HISTORY: trimal fxr COMPARISON: None FINDINGS: There is dorsal dislocation. A comminuted fracture is seen of the distal tibia involving the posterior and medial malleolus. There is a comminuted fracture of the lateral malleolus and distal fibula. The posterior malleolar fracture is displaced posteriorly by 16 mm. The medial malleolar fracture is associated with 6 mm of displacement. The lateral malleolar fracture is associated with 14 mm of displacement. The subtalar and hindfoot joints are intact. There is a probable tiny chip fracture involving the dorsal surface of the proximal cuboid. IMPRESSION: Trimalleolar fracture dislocation with displacement measured above. Tiny chip fracture proximal cuboid. Reviewed, Interpreted and Dictated by Kayla Michaels MD Transcribed by Blossom Schultz Authenticated and [facility]
[2024-05-22 13:58] LABS: Hepatitis C Ab Qual. W/ RFX NEGATIVE (Negative)
--- NOTE | 2024-05-22 14:29 | PC.NURSE ---
called [place] for transfer for ortho waiting client resolution specialist back
== END 2024-05-22 16:05 | disposition short-term general hospital (02) ==
PROVIDERS: Emergency Provider Student in an Organized Health Care Education/Training Program
DX: S82.851A Displaced trimalleolar fracture of right lower leg, initial encounter for closed fracture (principal); M25.571 Pain in right ankle and joints of right foot; M79.671 Pain in right foot; M79.604 Pain in right leg; W00.0XXA Fall on same level due to ice and snow, initial encounter; Y93.89 Activity, other specified; Y92.9 Unspecified place or not applicable
CPT/HCPCS: 27842; 73590; 73600; 73620; 73700; 86803; 87389; 96374; 96375; 99152; 99284; J1171; J2405

== ENCOUNTER 2024-06-29 11:04 | Outpatient (CLI) | payer MEDICARE, MEDICAID, SELFPAY ==
[2024-06-29 19:19] LABS: Basophils % 0.3 % (0.1-2.0); Eosinophils # 0.1 K/mm3 (0.0-0.4); Eosinophils % 0.6 % (0.1-12.0); Hematocrit 41.2 % (37.0-47.0); Hemoglobin 12.8 g/dL (12.2-16.2); Lymphocytes # 3.1 K/mm3 (0.7-4.5); Lymphocytes % 26.3 % (10-50); Mean Corpuscular HGB Conc 31.1 g/dL (31.8-35.4); Mean Corpuscular Hemoglobin 31.9 pg (27.0-31.2); Mean Corpuscular Volume 102.7 fl (81-99); Mean Platelet Volume 10.9 fl (7.4-10.4); Monocytes # 0.8 K/mm3 (0.1-1.0); Monocytes % 6.5 % (1.7-9.3); Neutrophils # 7.8 K/mm3 (1.8-7.8); Platelet Count 309 K/mm3 (142-424); Red Blood Count 4.01 M/mm3 (4.20-5.40); Red Cell Distribution Width 13.6 % (11.5-17.5); White Blood Count 11.8 K/mm3 (4.8-10.8)
[2024-06-29 20:27] LABS: Microalbumin/Creatinine Ratio 11.6
[2024-06-29 20:43] LABS: Creatinine,Urine Random 156 mg/dL (Not Estab.)
[2024-06-29 20:50] LABS: Hemoglobin A1C 6.6 % (4.0-6.0)
[2024-06-29 22:44] LABS: Albumin Level 4.3 g/dl (3.5-5.0); Chloride 109 mmol/L (98-107); Potassium 4.5 mmoL/L (3.5-5.1); Sodium 141 mmol/L (136-145)
[2024-06-29 22:46] LABS: Blood Urea Nitrogen 13 mg/dl (7-17); Estimated Glomerular Filt Rate 55 ml/min (>60); GFR (African American) 67 ML/MIN (>60)
[2024-06-29 22:47] LABS: Alanine Aminotransferase 15 U/L (12-78); Albumin/Globulin Ratio 1.8 (1.1-1.8); Alkaline Phosphatase 96 U/L (38-126); Anion Gap 11.5 mEq/L (5-15); Aspartate Amino Transferase 22 U/L (14-36); Bilirubin,Total 0.5 mg/dl (0.2-1.3); Calcium 9.8 mg/dl (8.4-10.2); Carbon Dioxide 25 mmol/L (22.0-30.0); Chol/HDL Ratio 3.7 (1-3.5); Cholesterol 205 mg/dl (140-200); Globulin 2.4 g/dL (1.3-3.2); Glucose 115 mg/dl (74-100); HDL Cholesterol 56 mg/dl (40-60); Total Protein,Serum 6.7 g/dl (6.3-8.2); Triglycerides 193 mg/dl (30-150); VLDL Cholesterol 39 mg/dL (0-40)
[2024-06-29 23:00] LABS: Direct LDL Cholesterol 114.38 mg/dL (100-129)
[2024-06-29 23:04] LABS: 25-OH Vitamin D, Total 36.2 ng/mL (30-100)
[2024-06-29 23:19] LABS: Thyroid Stimulating Hormone 0.86 uIU/mL (0.465-4.68)
== END 2024-06-29 23:59 | disposition home or self-care (01) ==
LOC: LAB.DROPOF 06-30 17:30
PROVIDERS: PCP Family Medicine; Visit Provider Family Medicine
DX: E11.69 Type 2 diabetes mellitus with other specified complication (principal); I10 Essential (primary) hypertension; E78.2 Mixed hyperlipidemia
CPT/HCPCS: 80053; 80061; 82043; 82306; 82570; 83036; 84443; 85025

== ENCOUNTER 2025-01-01 10:19 | Outpatient (CLI) | payer MEDICARE, MEDICAID, SELFPAY ==
--- OUTSIDE RECORDS SUMMARY | 2025-01-04 10:21 | XMS_ITS | Clinical Summary ---
Author Organization [facility] Address [address] [place] [address] Care Team Providers Care Dining Room Attendant Name Role Phone Tori Peralta Primary Care Provider [phone] Allergies Active Allergy Reactions Criticality Noted Date Comments Cariprazine Itching Medium 05/22/2024 Glipizide Dizziness Low 05/22/2024 Cephalexin Headache Low 05/22/2024 N/v Lisinopril Cough Low 05/22/2024 Penicillins Hives Medium 05/22/2024 Medications metoprolol succinate XL (Toprol-XL) 100 MG 24 hr tablet Take 1 tablet (100 mg) by mouth 1 (one) time each day. Do not crush or chew. Active isosorbide mononitrate ER (Imdur) 30 MG 24 hr tablet Take 1 tablet (30 mg) by mouth 1 (one) time each day. Do not crush or chew. Active empagliflozin (Jardiance) 10 MG Take 1 tablet (10 mg) by mouth 1 (one) time each day. Active rosuvastatin (Crestor) 40 MG tablet Take 1 tablet (40 mg) by mouth 1 (one) time each day. Active famotidine (Pepcid) 40 MG tablet Take 1 tablet (40 mg) by mouth 1 (one) time each day. Active buPROPion SR (Wellbutrin SR) 150 MG 12 hr tablet Take by mouth 2 (two) times a day. Do not crush, chew, or split. Active cetirizine (ZyrTEC) 10 MG tablet Take 1 tablet (10 mg) by mouth 1 (one) time each day. Active losartan (Cozaar) 25 MG tablet Take 1 tablet (25 mg) by mouth 1 (one) time each day. Active Fluticasone Furoate-Vilanter ol (Breo Ellipta) 200-25 MCG/ACT aerosol powder Inhale 1 puff 1 (one) time each day. Active azelastine (Astelin) 0.1 % nasal spray Administer 1 spray into each nostril 2 (two) times a day. Use in each nostril as directed Active aspirin 81 MG EC tablet Take 1 tablet (81 mg) by mouth 1 (one) time each day. Active gabapentin (Neurontin) 100 MG capsule Take 1 capsule (100 mg) by mouth 3 (three) times a day for 14 days. If this medication makes you drowsy you may take it only at bedtime 42 capsule 5 Active methocarbamol (Robaxin) 500 MG tablet Take 1 tablet (500 mg) by mouth 4 (four) times a day for 14 days. 56 tablet 5 Active naloxone (Narcan) 4 mg/0.1 mL nasal spray 1. Give 1 spray in nostril for no/slow breathing or cannot wake after opioid use 2. Call 911 3. Repeat in other nostril if symptoms continue 1 each 5 Active Additional Information Patient not taking.Reported on 07/20/2024 Vraylar 1.5 MG capsule 4 Active desvenlafaxine (Pristiq) 50 MG 24 hr tablet 4 Active Vitamin D3 1.25 MG (71398 UT) capsule 4 Active escitalopram (Lexapro) 10 MG tablet 7 Active Active Problems Problem Noted Date Diagnosed Date Fall from standing, initial encounter 05/23/2024 Overview (05/23/2024): Slipped on ice 05/22 Admit to SGT Tertiary 05/23 Mood disorder 05/23/2024 Overview (05/23/2024): Resume home meds as appropriate Diabetes 05/23/2024 Overview (05/23/2024): ACHS SSI CC2 diet GERD (gastroesophageal reflux disease) 5 Overview (05/23/2024): Resume home meds as appropriate HTN (hypertension) 05/23/2024 Overview (05/23/2024): Resume home meds as appropriate HLD (hyperlipidemia) 05/23/2024 Overview (05/23/2024): Resume home meds as appropriate CAD (coronary artery disease) 05/23/2024 Overview (05/23/2024): Resume home meds as appropriate Trimalleolar fracture 05/23/2024 Overview (05/24/2024): ORT consulted Reduced and splinted Follow up outpatient 06/01 NWB Tobacco abuse 05/23/2024 Overview (05/23/2024): 1 PPD NRT Family History Medical History Relation Name Comments Arthritis Other 1 Other cancer Other 2 Relation Name Status Comments Other 1 Other 2 Social History Tobacco Use Types Packs/Day Years Used Date Smoking Tobacco: Every Day Cigarettes Smokeless Tobacco: Never Tobacco Cessation:Ready to Q uit: Not Asked; Counseling Given: Not Answered Alcohol Use Standard Drinks/Week Comments Never 0 (1 standard drink = 0.6 oz pur e alcohol) PHQ-2 Answer Date Recorded Patient Health Questionnaire-2 Score 1 06/01/2024 PHQ-9 Answer Date Recorded Patient Health Questionnaire-9 Score 4 06/01/2024 Comments No Sex and Gender Information Value Date Recorded Sex Assigned at Female 06/05/2024 5:14 AM EST Legal Sex Female 8:54 PM EDT Gender Identity Not on file Sexual Orientation Not on file Last Filed Vital Signs Vital Sign Reading Time Taken Comments Blood Pressure 112/66 07/20/2024 2:07 PM EDT Pulse 66 07/20/2024 2:07 PM EDT Temperature 36.9 C (98.4 F) 07/20/2024 2:07 PM EDT Respiratory Rate 13 06/05/2024 11:15 AM EST Oxygen Saturation 96% 07/20/2024 2:07 PM EDT Inhaled Oxygen Concentration - - Weight 65.8 kg (145 lb) 07/20/2024 2:07 PM EDT Height 170.2 cm (5' 7 ) 07/20/2024 2:07 PM EDT Body Mass Index 22.71 07/20/2024 2:07 PM EDT Plan of Treatment Health Maintenance Due Date Last Done Comments [facility]-Bone Density Scan 1954 [facility]-Diabetes: Hemoglobin A1C 1954 [facility]-Medicare Annual Wellness (AWV) 1954 [facility]-/Child/Adol SDOH Screenings 1954 Diabetes: Dental Exam 1964 [facility]- SDOH Screenings 1972 [facility]-Adult SDOH Screenings 1972 [facility]-DTaP,Tdap,and Td Vaccine s (1 - Tdap) 1973 CT Colonography 12/23/1999 Colonoscopy 12/23/1999 FIT-DNA 12/23/1999 FIT 12/23/1999 FOBT 12/23/1999 Sigmoidoscopy 12/23/1999 [facility]-Colorectal Cancer Screening 12/23/1999 [facility]-Breast Cancer Screening 2004 [facility]-Zoster Vaccines (1 of 2) 2004 [facility]-Pneumococcal Vaccine: 50 + Years (2 of 2 - PCV) 06/14/2021 06/14/2020 [id number]-28 Vaccine (1 - 2023- season) 2024 [facility]-Influenza Vaccine (#1) 01/04/202503/16, 03/07/2021, 02/11/2020 [facility]-Depression Screening 06/01/2025 025, 06/01/2024 [facility]-RSV Vaccine: 60+ Years o r (1 - 1-dose 75+ series) 2029 [facility]-Hepatitis C Screening Completed 05/22/2024 HPV Vaccines Aged Out No longer eligi ble based on patient's age to complete this topic [facility]-HIB Vaccines Aged Out No longer e ligible based on patient's age to complete this topic [facility]-Hepatitis A Vaccines Aged Out No longer eligible based on patient's age to complete this topic [facility]-IPV Vaccines Aged Out No longer e ligible based on patient's age to complete this topic [facility]-Rotavirus Vaccines Aged Out No lo nger eligible based on patient's age to complete this topic Medical Devices Implanted Type Area Customs Brokerage Manager Device Identifier Shelf Expiration Date Model / Serial / Lot Plate One Third Tubular 8h 96mm Ti Globus Med - Sn/A - [id number] Implanted:Qty: 1 on 06/05/2024 by Narciso Carlson MD at [facility] Plate Right: Ankle [employer]-[id number] 06/05/2025 1179.1308 / N/A / N/A Screw 3.5x16mm Ti Non-Locking Globus Med - [id number] Implanted:Qty: 2 on 06/05/2024 by Narciso Carlson MD at [facility] Screw Right: Ankle [employer]-[id number] 06/05/2025 1179.3016 / / Screw 3.5x14mm Ti Non-Locking Globus Med - [id number] Implanted:Qty: 1 on 06/05/2024 by Narciso Carlson MD at [facility] Screw Right: Ankle [employer]-[id number] 06/05/2025 1179.3014 / / Screw 3.5x16mm Ti Monoaxlocking Globus Med - [id number] Implanted:Qty: 1 on 06/05/2024 by Narciso Carlson MD at [facility] Screw Right: Ankle [employer]-[id number] 06/05/2025 1179.5016 / / Screw 3.5x14mm Ti Monoaxlocking Globus Med - [id number] Implanted:Qty: 1 on 06/05/2024 by Narciso Carlson MD at [facility] Screw Right: Ankle [employer]-[id number] 06/05/2025 1179.5014 / / Screw 3.5x70mm Ti Non-Locking - [id number] Implanted:Qty: 1 on 06/05/2024 by Narciso Carlson MD at [facility] Screw Right: Ankle [employer]-[id number] 06/05/2025 1179.3070 / / Screw 2.5x60mm Ti Non-Locking - [id number] Implanted:Qty: 1 on 06/05/2024 by Narciso Carlson MD at [facility] Screw Right: Ankle [employer]-[id number] 06/05/2025 1171.6560 / / Procedures Procedure Name Priority Date/Time Associated Diagnosis Comments HEPATITIS C ANTIBODY - ED W/REFLEX TO HCV QUANT PCR STAT 05/22/2024 6:04 PM EST from Last 3 Months or Most Recently Relevant to Health Maintenance Results * Hepatitis C Antibody - ED (05/22/2024 6:04 PM EST) Hepatitis C Antibody Negative Negative 05/22/2024 7:03 PM EST [facility] Blood Venous blood specimen / Unknown Venipuncture / Unknown 05/22/2024 6:04 PM EST 05/22/2024 6:08 PM EST us Lora Mcclelland MD LAB BLOOD ORDERABLES Final Res ult [facility] [address] [place] [address] from Last 3 Months or Most Recently Relevant to Health Maintenance Insurance [facility] MEDICARE [facility] MEDICAID Advance Directives * Full Code (Latest Code Status on File) Date Activated Date Inactivated Comments 05/23/2024 2:02 AM 05/24/2024 6:43 PM Question Answer Comments Patient has decision-making capacity? Yes Care Teams Dining Room Attendant Relationship Specialty Start Date End Date oTri Peralta PA [address] [place] [address] PCP - General 09/16/20
== END 2025-01-01 23:59 ==
LOC: LAB.DROPOF 01-04 10:19
PROVIDERS: PCP Family Medicine; Visit Provider Family Medicine
DX: R39.9 Unspecified symptoms and signs involving the genitourinary system (principal)
CPT/HCPCS: 87086

== ENCOUNTER 2025-01-25 14:34 | Outpatient (CLI) | payer MEDICARE, MEDICAID, SELFPAY ==
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
--- NOTE | 2025-01-25 14:45 | CT_ITS ---
FINAL REPORT TECHNIQUE: Thin section axial images were obtained through the lungs using a low-dose technique per lung cancer screening protocol. Reconstruction images were obtained using the axial data. Exam was performed using dose reduction technique. CLINICAL HISTORY: lung cancer screening, 2 packs per day for 40 yrs, copd, family history of lung cancer, exposed to second hand smoke COMPARISON: 02/27/2024 FINDINGS: CTDLvol: 2.90 DLP: 102.64 Current smoker 80 pack year history Lungs: There is a stable 13 mm ground glass nodule in the superior segment of the left lower lobe on series 4 image 31. There has been interval development of a soft tissue component to a cyst in the left lower lobe along the posterior wall. The nodular component measures 6 mm in both axial and coronal images. Irregular right lower lobe nodular density is unchanged measuring 12 mm. There is a stable tiny subpleural left upper lobe nodule on series 4 image 23. The previously seen tiny subpleural left lower lobe nodule is not seen on today's exam. Lymph nodes: No thoracic lymphadenopathy. Mediastinum: Heart size is normal. There are prominent coronary artery calcifications. Pleura/pericardium: No pleural or pericardial effusion. Other: No acute abnormality in the upper abdomen. Moderate hiatal hernia is noted. IMPRESSION: Development of a nodule along the posterior wall of a cyst in the left lower lobe. Additional nodules are unchanged. Modifier S: Prominent coronary artery calcifications. Lung RADS: 3 Recommendation: 6-month follow-up low-dose chest CT. Reviewed, Interpreted and Dictated by Darya Krause MD Transcribed by Blossom Schultz Authenticated and [facility]
== END 2025-01-25 23:59 | disposition home or self-care (01) ==
LOC: RAD 14:35
PROVIDERS: PCP Family Medicine; Visit Provider Family Medicine
DX: R91.8 Other nonspecific abnormal finding of lung field (principal); J44.9 Chronic obstructive pulmonary disease, unspecified; F17.210 Nicotine dependence, cigarettes, uncomplicated; I25.10 Atherosclerotic heart disease of native coronary artery without angina pectoris; K44.9 Diaphragmatic hernia without obstruction or gangrene; Z80.1 Family history of malignant neoplasm of trachea, bronchus and lung
CPT/HCPCS: 71271

== ENCOUNTER 2025-01-29 13:23 | Emergency (ER) | payer MEDICARE, MEDICAID, SELFPAY ==
[2025-01-29] VITALS (8 sets, daily range): BP systolic 135–158; BP diastolic 75–101; PULSE 70–81; RESP 16–18; TEMP 36.8; O2SAT 94–99; BMI 28.8
[2025-01-29 13:37] LABS: Microscopic, Urine URINE MICROSCOPIC (MICROSCOPIC)
[2025-01-29 13:42] LABS: Albumin Level 4.4 g/dl (3.5-5.0); Chloride 106 mmol/L (98-107); Potassium 4.0 mmoL/L (3.5-5.1); Sodium 139 mmol/L (136-145)
--- OUTSIDE RECORDS SUMMARY | 2025-01-29 13:42 | XMS_ITS | Clinical Summary ---
Author Organization [facility] Address [address] [place] [address] Care Team Providers Care Package Wrapper Name Role Phone Tori Peralta Primary Care Provider [phone] Allergies Active Allergy Reactions Criticality Noted Date [...] tablet 4 Active Vitamin D3 1.25 MG (95684 UT) capsule 4 Active escitalopram (Lexapro) 10 [...] (2 of 2 - PCV) 06/14/2021 06/14/2020 [id number] Vaccine (1 - 2023- season) 2025 [facility]-Influenza [...] this topic Medical Devices Implanted Type Area Spinning Doffer Device Identifier Shelf Expiration Date Model / Serial / Lot Plate One Third Tubular 8h 96mm Ti Globus Med - Sn/A - [id number] Implanted:Qty: 1 on 06/05/2024 by Narciso Carlson MD at [facility] Plate Right: Ankle [employer]-[id number] 06/05/2025 1179.1308 / N/A / N/A Screw 3.5x16mm Ti Non-Locking Globus Med - [id number] Implanted:Qty: 2 on 06/05/2024 by Narciso Carlson MD at [facility] Screw Right: Ankle [employer]-[id number] 06/05/2025 1179.3016 / / Screw 3.5x14mm Ti Non-Locking Globus Med - [id number] Implanted:Qty: 1 on 06/05/2024 by Narciso Carlson MD at [facility] Screw Right: Ankle [employer]-[id number] 06/05/2025 1179.3014 / / Screw 3.5x16mm Ti Monoaxlocking Globus Med - [id number] Implanted:Qty: 1 on 06/05/2024 by Narciso Carlson MD at [facility] Screw Right: Ankle [employer]-[id number] 06/05/2025 1179.5016 / / Screw 3.5x14mm Ti Monoaxlocking Glob[employer] Med - [id number] Implanted:Qty: 1 on 06/05/2024 by Narciso Carlson MD at [facility] Screw Right: Ankle [employer]-[id number] 06/05/2025 1179.5014 / / Screw 3.5x70mm Ti Non-Locking - [id number] Implanted:Qty: 1 on 06/05/2024 by Narciso Carlson MD at [facility] Screw Right: Ankle [employer]-[id number] 06/05/2025 1179.3070 / / Screw 2.5x60mm Ti Non-Locking - [id number] Implanted:Qty: 1 on 06/05/2024 by Narciso Carlson MD at [facility] Screw Right: Ankle [employer]-[id number] 06/05/2025 1171.6560 / / Procedures Procedure Name Priority Date/Time Associated Diagnosis Comments HEPATITIS C ANTIBODY - ED W/REFLEX TO HCV QUANT PCR STAT 05/22/2024 6:04 PM EST from Last 3 Months or Most Recently Relevant to Health Maintenance Results * Hepatitis C Antibody - ED (05/22/2024 6:04 PM EST) Hepatitis C Antibody Negative Negative 05/22/2024 7:03 PM EST [facility] Blood Venous blood specimen / Unknown Venipuncture / Unknown 05/22/2024 6:04 PM EST 05/22/2024 6:08 PM EST us Lora Mcclelland MD LAB BLOOD ORDERABLES Final Res ult [facility] [address] [place] [address] from Last 3 Months or Most Recently Relevant to Health Maintenance Insurance [facility] MEDICARE [facility] MEDICAID Advance Directives * Full Code (Latest Code Status on File) Date Activated Date Inactivated Comments 05/23/2024 2:02 AM 05/24/2024 6:43 PM Question Answer Comments Patient has decision-making capacity? Yes Care Teams Package Wrapper Relationship Specialty Start Date End Date Tori Peralta PA [address] [place] [address] PCP - General 09/16/20
[2025-01-29 13:43] LABS: Bilirubin,Urine Negative (Negative); Color,Urine YELLOW (Yellow); Glucose,Urine (UA) 3+ (Negative); Ketones,Urine Negative (Negative); Leukocyte Esterase,Urine Negative (Negative); PH,Urine 5.5 (5.0-8.5); Protein,Urine Negative (Negative); Specific Gravity, Urine <= 1.005 (1.005-1.030); Urobilinogen,Urine 0.2 EU/dl (0.2)
[2025-01-29 13:45] LABS: Alanine Aminotransferase 17 U/L (12-78); Albumin/Globulin Ratio 1.6 (1.1-1.8); Alkaline Phosphatase 95 U/L (38-126); Anion Gap 11.0 mEq/L (5-15); Aspartate Amino Transferase 32 U/L (14-36); Bilirubin,Total 0.6 mg/dl (0.2-1.3); Blood Urea Nitrogen 11 mg/dl (7-17); Calcium 9.3 mg/dl (8.4-10.2); Carbon Dioxide 26 mmol/L (22.0-30.0); Creatinine Clearance Estimated 71 mL/min (50-200); Creatinine,Serum 0.70 mg/dl (0.52-1.04); Estimated Glomerular Filt Rate 83 ml/min (>60); GFR (African American) 100 ML/MIN (>60); Globulin 2.7 g/dL (1.3-3.2); Glucose 132 mg/dl (74-100); Total Protein,Serum 7.1 g/dl (6.3-8.2)
[2025-01-29 13:55] LABS: Hematocrit 39.7 % (37.0-47.0); Hemoglobin 12.7 g/dL (12.2-16.2); Immature Granulocytes % 0.3 %; Mean Corpuscular HGB Conc 32.0 g/dL (31.8-35.4); Mean Corpuscular Hemoglobin 31.8 pg (27.0-31.2); Mean Corpuscular Volume 99.3 fl (81-99); Nucleated Red Blood Cells % 0 %; Platelet Count 242 K/mm3 (142-424); Red Blood Count 4.00 M/mm3 (4.20-5.40); Red Cell Distribution Width-SD 48.5 fL; White Blood Count 7.8 K/mm3 (4.8-10.8)
--- NOTE | 2025-01-29 13:57 | CT_ITS ---
FINAL REPORT TECHNIQUE: Thin section axial images are obtained through the abdomen and pelvis after intravenous contrast. Reconstruction images were obtained from the axial data. Exam was performed using dose reduction techniques. This study was performed with techniques to keep radiation doses as low as reasonably achievable (ALARA). Individualized dose reduction techniques using automated exposure control or adjustment of mA and/or kV according to the patient's size were employed. CLINICAL HISTORY: Epigastric and suprapubic pain COMPARISON: 11/27/2022 FINDINGS: LUNG BASES: Right lower lobe atelectasis versus scar is present. Heart size is normal. LIVER: Homogeneous. No focal lesion. GALLBLADDER/BILIARY SYSTEM: The gallbladder is surgically absent. No biliary dilatation. SPLEEN: Unremarkable. PANCREAS: Unremarkable. ADRENALS: Unremarkable. KIDNEYS/URETERS/BLADDER: No hydronephrosis, renal mass, or renal stone. There are small bilateral hypodense renal lesions that likely represent cysts. There is bladder wall thickening, that may represent cystitis. GI TRACT: A moderate sized hiatal hernia is present. No small bowel obstruction or dilatation. Normal appendix. There is long segment chronic wall thickening of the colon, favor incomplete distention. PELVIC ORGANS: The uterus is normal in appearance. LYMPH NODES/RETROPERITONEUM/MESENTERY: No lymphadenopathy. No abdominal aortic aneurysm. ABDOMINAL WALL: The abdominal wall is intact. There is a small fat-containing umbilical hernia. FREE FLUID: No ascites. BONES: No acute osseous abnormality. IMPRESSION: Bladder wall thickening, that may represent cystitis. Reviewed, Interpreted and Dictated by Darya Krause MD Transcribed by Alena Carroll Authenticated and [facility]
[2025-01-29 14:12] LABS: Lipase 73 U/L (23-300)
[2025-01-29] MEDS: ONDANSETRON 4MG/2ML VIAL 4 MG IV (14:14)
[2025-01-29] MEDS: MORPHINE 4MG/ML SYRINGE 4 MG IV (14:14)
[2025-01-29 14:28] LABS: VBG HCO3 22.1 mmol/L (23-30); VBG PCO2 40.4 mmol/L (35-51); VBG PH 7.36 mmol/L (7.31-7.41); VBG PO2 51.6 mmol/L (28-40)
[2025-01-29 14:29] LABS: Lactate Venous 1.0 mmol/L (0.4-2.0)
[2025-01-29 14:30] LABS: Troponin I < 0.01 ng/ml (0.00-0.034)
[2025-01-29] MEDS: SODIUM CHLORIDE 0.9% 10ML SYR (RAD ONLY) 10 ML IV (14:39)
[2025-01-29] MEDS: IOPAMIDOL-370 (76%);100ML BOTTLE 75 ML IV (14:39)
--- NOTE | 2025-01-29 15:17 | HMH.EDGENADL ---
Discharge Plan Disposition Patient Disposition: Home, Self-Care Condition: Good Prescriptions Prescriptions: New sucralfate [Carafate] 1 gram tablet 1 g PO Q6H 84 Days Qty: 336 0RF No Action methylprednisolone [Medrol (Mckay)] 4 mg tablets,dose pack See Rx Instructions PO PER PKG DIR Qty: 21 0RF Rx Instructions: PO PER PKG DIR (DME) blood-glucose meter [Blood Glucose Monitoring] Kit See Rx Instructions .ROUTE .MEDSUPPLY Qty: 1 0RF Rx Instructions: As directed (DME) Blood Glucose Test Strip See Rx Instructions .Route Qty: 50 5RF Rx Instructions: As directed (DME) blood pressure monitor [Blood Pressure Kit] Kit See Rx Instructions .Route Qty: 1 0RF Rx Instructions: Check blood pressure once daily rosuvastatin [Crestor] 40 mg tablet 40 mg PO DAILY Qty: 90 3RF fluticasone furoate-vilanterol [Breo Ellipta] 200-25 mcg/dose blister with device See Rx Instructions .ROUTE .COMPLEX Qty: 60 2RF Dose Instruction: INHALE 1 PUFF BY MOUTH ONCE A DAY Rx Instructions: INHALE 1 PUFF BY MOUTH ONCE A DAY losartan 25 mg tablet See Rx Instructions .ROUTE .COMPLEX Qty: 90 3RF Dose Instruction: TAKE ONE TABLET BY MOUTH ONCE A DAY Rx Instructions: TAKE ONE TABLET BY MOUTH ONCE A DAY omeprazole 40 mg capsule,delayed release(DR/EC) See Rx Instructions .ROUTE .COMPLEX Qty: 90 2RF Dose Instruction: TAKE 1 CAPSULE BY MOUTH ONCE A DAY Rx Instructions: TAKE 1 CAPSULE BY MOUTH ONCE A DAY isosorbide mononitrate 30 mg tablet extended release 24 hr See Rx Instructions .ROUTE .COMPLEX Qty: 90 3RF Dose Instruction: TAKE ONE TABLET BY MOUTH ONCE A DAY Rx Instructions: TAKE ONE TABLET BY MOUTH ONCE A DAY metoprolol succinate 100 mg tablet extended release 24 hr See Rx Instructions .ROUTE .COMPLEX Qty: 90 3RF Dose Instruction: TAKE ONE TABLET BY MOUTH ONCE A DAY Rx Instructions: TAKE ONE TABLET BY MOUTH ONCE A DAY Jardiance 10 mg tablet See Rx Instructions .ROUTE .COMPLEX Qty: 90 3RF Dose Instruction: TAKE ONE TABLET BY MOUTH ONCE A DAY Rx Instructions: TAKE ONE TABLET BY MOUTH ONCE A DAY ibuprofen 800 mg tablet See Rx Instructions .ROUTE .COMPLEX Qty: 60 2RF Dose Instruction: TAKE 1 TABLET BY MOUTH EVERY 8 HOURS NEEDED FOR pain Rx Instructions: TAKE 1 TABLET BY MOUTH EVERY 8 HOURS NEEDED FOR pain aspirin 81 MG tablet,delayed release (DR/EC) 81 mg PO DAILY Referrals Follow up/Referrals: Katherine Perez APRN [Primary Care Provider, Family Practice] - See instructions Activity Restrictions/Add. Instructions Additional Instructions/Restrictions: Take carafate as needed to help with your symptoms. Follow-up with your primary care provider as needed or return to the ER for acute or worsening symptoms. Clinical Impressions Clinical Impression: Abdominal pain Print Language Print Language: Slovenian Discharge ED Provider: Franco Blake General Adult HPI <Franco Blake DO - Last Filed: 01/29/25 16:23> General Chief complaint: PAIN Stated complaint: Abdominal Pain Time Seen by Provider: 01/29/25 13:30 Mode of Arrival: EMS Source of Information: Patient and EMS Description of Symptoms (Recalled from ER Triage Doc. by RN): pt reports nikolas flank pain that radiates to the lower abdomen. has taken azo 2 days ago with no relief. states it has made her short of breath History of Present Illness HPI narrative: This is a 69-year-old female patient, with past medical history of tobacco abuse, multiple lung nodules, type 2 diabetes, hypertension, hyperlipidemia, COPD, and coronary artery disease status post PCI in the past, who is presenting to the emergency department today for evaluation of 1 week of abdominal pain. The patient states that this pain is located in both the suprapubic and epigastric regions of her abdomen. The epigastric region of pain tends to radiate into her back. She also states that she is experiencing increased urinary frequency without dysuria or hematuria. No nausea, vomiting, or diarrhea. No fevers. She states that her pain is not postprandial in nature. Related Data Home Medications ?Medication ?Instructions ?Recorded ?Confirmed aspirin 81 mg tablet,delayed 81 mg PO DAILY heart [facility] 01/25/20 01/01/25 release Previous Rx's ?Medication ?Instructions ?Recorded blood pressure monitor (Blood #1 ea 01/09/23 Pressure Kit) blood sugar diagnostic (Blood #50 ea 01/09/23 Glucose Test strips) blood-glucose meter (Blood Glucose #1 ea 01/09/23 Monitoring kit) rosuvastatin 40 mg tablet (Crestor) 40 mg PO DAILY #90 tabs 07/17/24 fluticasone furoate 200 See Rx Instructions .Route 11/11/24 mcg-vilanterol 25 mcg/dose .COMPLEX #60 blisters inhalation powder (Breo Ellipta) losartan 25 mg tablet See Rx Instructions .Route 11/23/24 .COMPLEX #90 tabs methylprednisolone 4 mg tablets in See Rx Instructions PO PER PKG DIR 01/01/25 a dose pack (Medrol (Mckay)) #21 tabs isosorbide mononitrate 30 mg See Rx Instructions .Route 01/11/25 tablet,extended release 24 hr .COMPLEX #90 tabs metoprolol succinate 100 mg See Rx Instructions .Route 01/11/25 tablet,extended release 24 hr .COMPLEX #90 tabs omeprazole 40 mg capsule,delayed See Rx Instructions .Route 01/11/25 release .COMPLEX #90 caps empagliflozin 10 mg tablet See Rx Instructions .Route 01/14/25 (Jardiance) .COMPLEX #90 tabs ibuprofen 800 mg tablet See Rx Instructions .Route 01/19/25 .COMPLEX #60 tabs sucralfate 1 gram tablet (Carafate) 1 g PO Q6H 12 weeks #336 tabs 01/29/25 Allergies Allergy/AdvReac Type Severity Reaction Status Date / Time cariprazine (From Vraylar) Allergy Intermediate itching Verified 01/01/25 14:22 cephalexin (From KEFLEX) Allergy Intermediate Unknown Verified 01/01/25 14:22 allergy reaction Penicillins Allergy Intermediate I-HIVES Verified 01/01/25 14:22 lisinopril AdvReac Intermediate cough Verified 01/01/25 14:22 glipizide AdvReac Intermediate Dizziness Uncoded 04/20/24 13:01 [facility] <Franco Blake DO - Last Filed: 01/29/25 16:23> [facility] Disclaimer: The information contained in this section may have been updated after the patient was seen, as this information can be updated by other users. Medical History Colon cancer screening URI, acute Viral illness MCC use of drug Tobacco abuse counseling Tobacco abuse Multiple lung nodules on CT Smoking greater than 30 pack years Dyspnea on exertion Upper abdominal pain Chest pain Family history of ischemic heart disease Angina pectoris Non-ST elevation myocardial infarction (NSTEMI) DM2 (diabetes mellitus, type 2) Hyperglycemia Anxiety Pneumonia History of diverticulitis Allergies Hypertension Hyperlipidemia History of anemia Abnormal EKG Gastroesophageal reflux disease CAD (coronary artery disease) COPD (chronic obstructive pulmonary disease) Lumbar disc disease with radiculopathy Rash and nonspecific skin eruption Lumbar disc disease with radiculopathy Depression Surgical History History of ankle surgery History of esophagogastroduodenoscopy (EGD) History of cholecystectomy Family History Other Bone cancer Cancer History of heart attack Social History Smoking Status: Current every day smoker tobacco type: cigarettes packs per day: 1 years smoked: 40 alcohol intake: never substance use type: denies use current occupational status: unemployed Travel in the last 8 weeks?: None household members: family housing: house caffeine: Yes Have you lived/traveled outside US in past 30 days?: No Contact w/someone who lives/traveled outside US past 30 days?: No Exposure to someone with infectious disease in past 14 days?: No Do you have a fever (greater than 100.4 F or 38 C)?: No Have you tested positive for COVID-19?: No Exposed to someone with COVID-19 in past 14 days?: No Do you have a sore throat?: No Do you have a cough?: No Do you have any weakness?: No Do you have any diarrhea?: No Are you experiencing any unusual bleeding?: No Do you have any muscle aches/pain?: No Do you have any abdominal pain?: No Are you experiencing loss of taste or smell?: No Other Medical History Have you received the Flu Vaccine for this season: No Have you received the Pneumonia Vaccine: No <DO Pedro Han Last Filed: 01/29/25 16:23> ROS Obtained: Yes Systems reviewed as appropriate & no additional complaints except as documented Physical Exam <DO Pedro Han Last Filed: 01/29/25 16:23> General General appearance: other (See MDM) Respiratory Respiratory exam: Present other (See MDM) Cardiovascular Cardiovascular exam: Present other (See MDM) Neurological Exam Neurological exam: Present other (See MDM) Medical Decision Making <Franco Blake DO - Last Filed: 01/29/25 16:23> Medical Records Medical records reviewed: Yes I reviewed the patient's medical records. Screening: Per USPSTF and CDC recommendations, given the prevalence of disease in our region, it is our hospital?s policy to screen for HIV and viral Hepatitis for all patients aged 18 and over and those with ongoing risk factors. Braxton Inquiry Pt receiving controlled substance: No Braxton was queried for this patient: No Vital Signs: 01/29/25 13:27 01/29/25 13:31 01/29/25 14:01 Temperature 98.3 F Temperature Source Oral Pulse Rate 71 70 Pulse Rate [Right] 81 Respiratory Rate 18 Blood Pressure 150/83 H 152/96 H Blood Pressure [Right Arm] 140/101 H Blood Pressure Mean [Right Arm] 114 02 Sat by Pulse Oximetry 97 99 97 Oxygen Delivery Method Room Air 01/29/25 14:30 01/29/25 15:00 01/29/25 15:29 Temperature Temperature Source Pulse Rate 71 71 71 Pulse Rate [Right] Respiratory Rate Blood Pressure 158/90 H 135/82 148/75 H Blood Pressure [Right Arm] Blood Pressure Mean [Right Arm] 02 Sat by Pulse Oximetry 94 L 98 98 Oxygen Delivery Method 01/29/25 16:00 01/29/25 16:58 Temperature 98.3 F Temperature Source Pulse Rate 70 70 Pulse Rate [Right] Respiratory Rate 16 Blood Pressure 140/78 140/78 Blood Pressure [Right Arm] Blood Pressure Mean [Right Arm] 02 Sat by Pulse Oximetry 98 Oxygen Delivery Method Lab Data Lab Results 01/29/25 13:15: WBC 7.8, RBC 4.00 L, Hgb 12.7, Hct 39.7, MCV 99.3 H, MCH 31.8 H, MCHC 32.0, RDW 13.2, Plt Count 242, MPV 10.7 H, Neut % (Auto) 59.8, Lymph % (Auto) 28.9, [place] % (Auto) 9.0, Eos % (Auto) 1.7, Baso % (Auto) 0.3, Neut # (Auto) 4.7, Lymph # (Auto) 2.3, [place] # (Auto) 0.7, Eos # (Auto) 0.1, Baso # (Auto) 0.0, Sodium 139, Potassium 4.0, Chloride 106, Carbon Dioxide 26, Anion Gap 11.0, BUN 11, Creatinine 0.70, Estimated Creat Clear 71, Estimated GFR 83, Est GFR ( Amer) 100, Glucose 132 H, Calcium 9.3, Total Bilirubin 0.6, AST 32, ALT 17, Alkaline Phosphatase 95, Troponin I < 0.01, Total Protein 7.1, Albumin 4.4, Globulin 2.7, Albumin/Globulin Ratio 1.6, Lipase 73, Urine Color Yellow, Urine Appearance Clear, Urine pH 5.5, Ur Specific [place] <= 1.005, Urine Protein Negative, Urine Glucose (UA) 3+, Urine Ketones Negative, Urine Blood Trace-i, Urine Nitrate Negative, Urine Bilirubin Negative, Urine Urobilinogen 0.2, Ur Leukocyte Esterase Negative, Urine RBC 3-5, Urine WBC None, Ur Squamous Epith Cells 3-5, Urine Bacteria None 01/29/25 14:23: VBG pH 7.36, VBG pCO2 40.4, VBG pO2 51.6 H, VBG HCO3 22.1 L, VBG Total CO2 23.3, VBG O2 Saturation 86.5 H, VBG Base Excess -3.4 L, VBG Lactic Acid 1.0 01/29/25 13:15 01/29/25 13:15 Orders (Tests/Meds): ED MEDICATIONS Discontinued Medications Generic Name Dose Route Start Last Admin Trade Name Luz Marina PRN Reason Stop Dose Admin Iopamidol 75 ml 01/29/25 14:38 01/29/25 14:39 Iopamidol-370 (76%);100ml Bottle IV 01/29/25 14:39 75 ml ONCE ONE Administration Morphine Sulfate 4 mg 01/29/25 13:58 01/29/25 14:14 Morphine 4mg/Ml Syringe IV 01/29/25 13:59 4 mg ONCE ONE Administration Ondansetron HCl 4 mg 01/29/25 13:58 01/29/25 14:14 Ondansetron 4mg/2ml Vial IV 01/29/25 13:59 4 mg ONCE ONE Administration Sodium Chloride 10 ml 01/29/25 14:38 01/29/25 14:39 Sodium Chloride 0.9% 10ml Syr (Rad Only) IV 02/28/25 14:37 10 ml NEEDED PRN Administration Maintain IV Site ORDERS Category Date Time Status CT abdomen pelvis w con Stat Cat Scan 01/29/25 13:57 Completed Complete Blood Count Auto Diff Stat Lab 01/29/25 13:15 Completed Comprehensive Metabolic Panel Stat Lab 01/29/25 13:15 Completed Lipase Stat Lab 01/29/25 13:15 Completed Troponin I Stat Lab 01/29/25 13:15 Completed Urinalysis-Acute [Urinalysis and Microscopic] Stat Lab 01/29/25 13:15 Completed VBG [Venous Blood Gas] Stat RT 01/29/25 14:23 Completed Medical Decision Narrative: In summary, this is a 69-year-old female patient who is presenting to the emergency department today for evaluation of both epigastric abdominal pain and suprapubic abdominal pain that has been present for the last week. Her only accompanying symptoms are urinary frequency. She also states that the pain in her epigastrium radiates to her back. Patient's comorbidities are quite significant and include hypertension, hyperlipidemia, diabetes, coronary artery disease status post PCI, and tobacco abuse with COPD. On initial evaluation of the patient they were resting comfortably in no acute distress and nontoxic in appearance. They are hemodynamically stable, saturating well room air, and are neurologically intact. On physical examination the patient's heart and lungs are clear to auscultation bilaterally. Radial pulses are symmetric to palpation bilaterally. She has significant epigastric abdominal tenderness and significant suprapubic abdominal tenderness palpation. No rebound or guarding. Differential diagnosis includes pancreatitis, ACS/VA, pyelonephritis, urinary stone, gastritis, aortic aneurysm, intra-abdominal abscess, cholecystitis, choledocholithiasis, among others Workup was initiated with hematologic labs as well as a CT scan of the abdomen and pelvis. Initial interventions included 4 mg of morphine and 4 mg of Zofran. Labs personally turbid by me demonstrate no evidence of leukocytosis. No anemia. Lactate is normal. No significant electrolyte derangements or acute kidney injury. Bilirubin and transaminases are normal. Lipase is normal. Troponin is less than 0.01 and pain has been persisting for greater than 1 week so we will not obtain a delta. Additionally, the patient's urine shows no white blood cells, no bacteria, no leukocyte esterase, and no nitrates. Therefore I do not feel that she is experiencing a urinary tract infection. At the time of shift change this patient CT scan of her abdomen and pelvis with contrast with pending. This case was handed off to Dr. Cutler who will follow-up on the scan and disposition the patient appropriately. <Lucy Cutler, DO - Last Filed: 01/30/25 01:12> Vital Signs: 01/29/25 13:27 01/29/25 13:31 01/29/25 14:01 Temperature 98.3 F Temperature Source Oral Pulse Rate 71 70 Pulse Rate [Right] 81 Respiratory Rate 18 Blood Pressure 150/83 H 152/96 H Blood Pressure [Right Arm] 140/101 H Blood Pressure Mean [Right Arm] 114 02 Sat by Pulse Oximetry 97 99 97 Oxygen Delivery Method Room Air 01/29/25 14:30 01/29/25 15:00 01/29/25 15:29 Temperature Temperature Source Pulse Rate 71 71 71 Pulse Rate [Right] Respiratory Rate Blood Pressure 158/90 H 135/82 148/75 H Blood Pressure [Right Arm] Blood Pressure Mean [Right Arm] 02 Sat by Pulse Oximetry 94 L 98 98 Oxygen Delivery Method 01/29/25 16:00 01/29/25 16:58 Temperature 98.3 F Temperature Source Pulse Rate 70 70 Pulse Rate [Right] Respiratory Rate 16 Blood Pressure 140/78 140/78 Blood Pressure [Right Arm] Blood Pressure Mean [Right Arm] 02 Sat by Pulse Oximetry 98 Oxygen Delivery Method Lab Data Lab results reviewed: Yes I reviewed the patient's lab results. Lab Results 01/29/25 13:15: WBC 7.8, RBC 4.00 L, Hgb 12.7, Hct 39.7, MCV 99.3 H, MCH 31.8 H, MCHC 32.0, RDW 13.2, Plt Count 242, MPV 10.7 H, Neut % (Auto) 59.8, Lymph % (Auto) 28.9, [place] % (Auto) 9.0, Eos % (Auto) 1.7, Baso % (Auto) 0.3, Neut # (Auto) 4.7, Lymph # (Auto) 2.3, [place] # (Auto) 0.7, Eos # (Auto) 0.1, Baso # (Auto) 0.0, Sodium 139, Potassium 4.0, Chloride 106, Carbon Dioxide 26, Anion Gap 11.0, BUN 11, Creatinine 0.70, Estimated Creat Clear 71, Estimated GFR 83, Est GFR ( Amer) 100, Glucose 132 H, Calcium 9.3, Total Bilirubin 0.6, AST 32, ALT 17, Alkaline Phosphatase 95, Troponin I < 0.01, Total Protein 7.1, Albumin 4.4, Globulin 2.7, Albumin/Globulin Ratio 1.6, Lipase 73, Urine Color Yellow, Urine Appearance Clear, Urine pH 5.5, Ur Specific [place] <= 1.005, Urine Protein Negative, Urine Glucose (UA) 3+, Urine Ketones Negative, Urine Blood Trace-i, Urine Nitrate Negative, Urine Bilirubin Negative, Urine Urobilinogen 0.2, Ur Leukocyte Esterase Negative, Urine RBC 3-5, Urine WBC None, Ur Squamous Epith Cells 3-5, Urine Bacteria None 01/29/25 14:23: VBG pH 7.36, VBG pCO2 40.4, VBG pO2 51.6 H, VBG HCO3 22.1 L, VBG Total CO2 23.3, VBG O2 Saturation 86.5 H, VBG Base Excess -3.4 L, VBG Lactic Acid 1.0 Orders (Tests/Meds): ED MEDICATIONS Discontinued Medications Generic Name Dose Route Start Last Admin Trade Name Freq PRN Reason Stop Dose Admin Iopamidol 75 ml 01/29/25 14:38 01/29/25 14:39 Iopamidol-370 (76%);100ml Bottle IV 01/29/25 14:39 75 ml ONCE ONE Administration Morphine Sulfate 4 mg 01/29/25 13:58 01/29/25 14:14 Morphine 4mg/Ml Syringe IV 01/29/25 13:59 4 mg ONCE ONE Administration Ondansetron HCl 4 mg 01/29/25 13:58 01/29/25 14:14 Ondansetron 4mg/2ml Vial IV 01/29/25 13:59 4 mg ONCE ONE Administration Sodium Chloride 10 ml 01/29/25 14:38 01/29/25 14:39 Sodium Chloride 0.9% 10ml Syr (Rad Only) IV 02/28/25 14:37 10 ml NEEDED PRN Administration Maintain IV Site ORDERS Category Date Time Status CT abdomen pelvis w con Stat Cat Scan 01/29/25 13:57 Completed Complete Blood Count Auto Diff Stat Lab 01/29/25 13:15 Completed Comprehensive Metabolic Panel Stat Lab 01/29/25 13:15 Completed Lipase Stat Lab 01/29/25 13:15 Completed Troponin I Stat Lab 01/29/25 13:15 Completed Urinalysis-Acute [Urinalysis and Microscopic] Stat Lab 01/29/25 13:15 Completed VBG [Venous Blood Gas] Stat RT 01/29/25 14:23 Completed Medical Decision Narrative: In summary, this is a 69-year-old female patient who is presenting to the emergency department today for evaluation of both epigastric abdominal pain and suprapubic abdominal pain that has been present for the last week. Her only accompanying symptoms are urinary frequency. She also states that the pain in her epigastrium radiates to her back. Patient's comorbidities are quite significant and include hypertension, hyperlipidemia, diabetes, coronary artery disease status post PCI, and tobacco abuse with COPD. On initial evaluation of the patient they were resting comfortably in no acute distress and nontoxic in appearance. They are hemodynamically stable, saturating well room air, and are neurologically intact. On physical examination the patient's heart and lungs are clear to auscultation bilaterally. Radial pulses are symmetric to palpation bilaterally. She has significant epigastric abdominal tenderness and significant suprapubic abdominal tenderness palpation. No rebound or guarding. Differential diagnosis includes pancreatitis, ACS/VA, pyelonephritis, urinary stone, gastritis, aortic aneurysm, intra-abdominal abscess, cholecystitis, choledocholithiasis, among others Workup was initiated with hematologic labs as well as a CT scan of the abdomen and pelvis. Initial interventions included 4 mg of morphine and 4 mg of Zofran. Labs personally turbid by me demonstrate no evidence of leukocytosis. No anemia. Lactate is normal. No significant electrolyte derangements or acute kidney injury. Bilirubin and transaminases are normal. Lipase is normal. Troponin is less than 0.01 and pain has been persisting for greater than 1 week so we will not obtain a delta. Additionally, the patient's urine shows no white blood cells, no bacteria, no leukocyte esterase, and no nitrates. Therefore I do not feel that she is experiencing a urinary tract infection. At the time of shift change this patient CT scan of her abdomen and pelvis with contrast with pending. This case was handed off to Dr. Cutler who will follow-up on the scan and disposition the patient appropriately. Lucy Cutler, DO I assumed care of this patient at 1500. Patient CT scan showed no acute pathology after my interpretation and radiology agreed. Patient's pain mostly in her epigastric region, patient is already on a proton pump inhibitor, patient was sent with Carafate in addition. Patient was given return precautions and patient was otherwise discharged home in stable condition. Critical Care <Franco Blake DO - Last Filed: 01/29/25 16:23> Critical Care Time Critical Care Time: No
== END 2025-01-29 16:58 | disposition home or self-care (01) ==
PROVIDERS: Emergency Provider Student in an Organized Health Care Education/Training Program; PCP Family Medicine
DX: R10.13 Epigastric pain (principal); R10.30 Lower abdominal pain, unspecified; F17.210 Nicotine dependence, cigarettes, uncomplicated
CPT/HCPCS: 74177; 80053; 81001; 82803; 83690; 84484; 85025; 96374; 96375; 99284; J2270; J2405; Q9967

== ENCOUNTER 2025-04-21 14:39 | Outpatient (CLI) | payer MEDICARE, MEDICAID, SELFPAY ==
[2025-04-21 20:44] LABS: Hematocrit 41.6 % (37.0-47.0); Hemoglobin 13.2 g/dL (12.2-16.2); Immature Granulocytes % 0.3 %; Mean Corpuscular HGB Conc 31.7 g/dL (31.8-35.4); Mean Corpuscular Hemoglobin 31.3 pg (27.0-31.2); Mean Corpuscular Volume 98.6 fl (81-99); Nucleated Red Blood Cells % 0 %; Platelet Count 340 K/mm3 (142-424); Red Blood Count 4.22 M/mm3 (4.20-5.40); Red Cell Distribution Width-SD 45.9 fL; White Blood Count 9.1 K/mm3 (4.8-10.8)
[2025-04-21 21:06] LABS: Alanine Aminotransferase 14 U/L (12-78); Albumin Level 4.6 g/dl (3.5-5.0); Albumin/Globulin Ratio 1.8 (1.1-1.8); Alkaline Phosphatase 108 U/L (38-126); Amylase 59 U/L (30-110); Anion Gap 13.2 mEq/L (5-15); Aspartate Amino Transferase 24 U/L (14-36); Bilirubin,Total 0.6 mg/dl (0.2-1.3); Blood Urea Nitrogen 14 mg/dl (7-17); Carbon Dioxide 25 mmol/L (22.0-30.0); Chloride 107 mmol/L (98-107); Creatinine,Serum 0.90 mg/dl (0.52-1.04); Estimated Glomerular Filt Rate 62 ml/min (>60); GFR (African American) 75 ML/MIN (>60); Globulin 2.6 g/dL (1.3-3.2); Lipase 48 U/L (23-300); Potassium 4.2 mmoL/L (3.5-5.1); Sodium 141 mmol/L (136-145); Total Protein,Serum 7.2 g/dl (6.3-8.2)
[2025-04-21 21:18] LABS: Calcium 9.4 mg/dl (8.4-10.2); Glucose 111 mg/dl (74-100)
[2025-04-21 21:28] LABS: Hemoglobin A1C 6.6 % (4.0-6.0)
--- OUTSIDE RECORDS SUMMARY | 2025-04-22 11:40 | XMS_ITS | Clinical Summary ---
Author Organization [facility] Address [address] [place] [address] Care Team Providers Care Public Health Professor Name Role Phone Tori Peralta Primary Care Provider [phone] Allergies Active Allergy Reactions Criticality Noted Date [...] tablet 4 Active Vitamin D3 1.25 MG (02749 UT) capsule 4 Active escitalopram (Lexapro) 10 [...] (2 of 2 - PCV) 06/14/2021 06/14/2020 [id number] Vaccine (1 - 2024- season) 2025 [facility]-Influenza Vaccine (#1) 01/04/202503/16, 03/07/2021, 02/11/2020 [facility]-Depression Screening 06/01/2025 025, 06/01/2024 [facility]-RSV Vaccine: 60+ Years o r (1 - 1-dose 75+ series) 2029 [facility]-Hepatitis C Screening Completed 05/22/2024 HPV Vaccines (No Doses Required) Completed [facility]-HIB Vaccines Aged Out No longer e [...] this topic Medical Devices Implanted Type Area Keymodule [employer] Machine Tender Device Identifier Shelf Expiration Date Model / Serial / Lot Plate One Third Tubular 8h 96mm Ti [employer] Med - Sn/A - [id number] Implanted:Qty: 1 on 06/05/2024 by Narciso Carlson MD at [facility] Plate Right: Ankle [id number] 06/05/2025 [id number] / N/A / N/A Screw 3.5x16mm Ti Non-Locking [employer] - [id number] Implanted:Qty: 2 on 06/05/2024 by Narciso Carlson MD at [facility] Screw Right: Ankle [id number] 06/05/2025 [id number] / / Screw 3.5x14mm Ti Non-Locking [employer] - [id number] Implanted:Qty: 1 on 06/05/2024 by Narciso Carlson MD at [facility] Screw Right: Ankle [id number] 06/05/2025 [id number] / / Screw 3.5x16mm Ti Monoaxlocking [employer] - [id number] Implanted:Qty: 1 on 06/05/2024 by Narciso Carlson MD at [facility] Screw Right: Ankle [id number] 06/05/2025 [id number] / / Screw 3.5x14mm Ti Monoaxlocking [employer] - [id number] Implanted:Qty: 1 on 06/05/2024 by Narciso Carlson MD at [facility] Screw Right: Ankle [id number] 06/05/2025 [id number] / / Screw 3.5x70mm Ti Non-Locking - [id number] Implanted:Qty: 1 on 06/05/2024 by Narciso Carlson MD at [facility] Screw Right: Ankle [id number] 06/05/2025 [id number] / / Screw 2.5x60mm Ti Non-Locking - [id number] Implanted:Qty: 1 on 06/05/2024 by Narciso Carlson MD at [facility] Screw Right: Ankle [id number] 06/05/2025 [id number] / / Procedures Procedure Name [...] MD LAB BLOOD ORDERABLES Final Res ult Performing Organization Address City/State/[facility] Co de Phone Number [facility] [address] [place] [address] from Last 3 Months or Most Recently Relevant to Health Maintenance Insurance [facility] MEDICARE [facility] MEDICAID Advance Directives * Full Code (Latest Code Status on File) Date Activated Date Inactivated Comments 05/23/2024 2:02 AM 05/24/2024 6:43 PM Question Answer Comments Patient has decision-making capacity? Yes Care Teams Public Health Professor Relationship Specialty Start Date End Date Tori Peralta PA [address] [place] [address] PCP - General 09/16/20
== END 2025-04-21 23:59 | disposition home or self-care (01) ==
LOC: LAB.DROPOF 04-22 10:25
PROVIDERS: PCP Family Medicine; Visit Provider Family Medicine
DX: E11.69 Type 2 diabetes mellitus with other specified complication (principal); I10 Essential (primary) hypertension; R10.9 Unspecified abdominal pain; R42 Dizziness and giddiness
CPT/HCPCS: 80053; 82043; 82150; 82570; 83036; 83690; 85025